=== PATIENT | female | born 1965 | race African-American/Black ===

== ENCOUNTER 2020-03-12 11:14 | Emergency (ER) | payer MEDICAID, SELFPAY ==
[2020-03-12 11:21] VITALS: BP 121/78; PULSE 95; RESP 16; TEMP 37.4; O2SAT 100
--- NOTE | 2020-03-12 11:53 | ED.GENADULT ---
HPI - General Adult General Chief complaint: General Medical Stated complaint: covid symptoms Time Seen by Provider: 03/12/20 11:23 Source: patient Mode of arrival: ambulatory Limitations: language barrier History of Present Illness HPI narrative: 54 y/o female presenting with persistent headache, myalgias, dry cough, sore throat and runny nose for the last 5 days. She had a negative COVID test on 03/08 and was forced to continue to go to work even though she was not feeling well. She works at [employer] where there have been several employees who have tested positive who she has been in close contact with. She is taking over the counter cold medications with some relief. She denies difficulty breathing or chest pain. She presents with her niece who has similar complaints. Related Data Allergies Allergy/AdvReac Type Severity Reaction Status Date / Time No Known Allergies Allergy Verified 03/12/20 11:27 Review of Systems Review of Systems: Constitutional: No Fever, + Chills ENT/Mouth: + sore throat, + Rhinorrhea, No Swallowing Difficulty Eyes: No Eye Pain, No Swelling, No Redness Cardiovascular: No Chest Pain, No SOB Respiratory: + Cough, No Sputum, No Wheezing, + dyspnea Gastrointestinal: No Nausea, No Vomiting, No Diarrhea, No abdominal Pain Genitourinary: No Dysuria Musculoskeletal: No joint pain, + Myalgias Skin: No Skin Lesions, No rash Neuro: + (generalized) Weakness, No Numbness, No Dizziness, + Headache PMFSH Social History Social History Alcohol intake: never Smoked in Last 30 Days: No Use of substances other than those prescribed or required for medical reasons: No Advance Directives: No Advance Directives Information Provided: No Physical Exam Vital Signs: Vital Signs: Last Vital Signs Temp 99.3 F 03/12/20 11:21 Pulse 95 03/12/20 11:21 Resp 16 03/12/20 11:21 BP 121/78 03/12/20 11:21 Pulse Ox 100 03/12/20 11:21 Body Mass Index 2.5 Appearance: Alert. Oriented X3. No acute distress. Appears ill. ENT: Pharyngeal erythema, generalized without tonsillar swelling or exudate. Neck: Normal inspection. Neck supple. CVS: Normal heart rate and rhythm. Pulses normal. Respiratory: No respiratory distress. Breath sounds normal. Skin: Skin warm and dry. Normal skin color. Normal skin turgor. No rashes. Neuro: Oriented X 3. Non-focal. Course Course Course Narrative: 54 y/o female presenting with 5 days of COVID symptoms after exposure at work. Will get resp panel given she is not up to date on her flu vaccine. Vitals are stable and her lungs are clear. Patient and her niece were counseled on the importance of staying out of public while feeling ill. Warning signs discussed when to return to the hospital. Stable for discharge. Critical Care Time Critical Care Time Critical Care Time: No Discharge Plan Discharge Clinical Impression: Acute viral disease Patient Disposition: Home, Self-Care Instructions: Viral Syndrome (ED), COVID-19 (Coronavirus Disease 2019) (ED) Additional Instructions: You were tested for COVID-19, Influenza and RSV today. We will call you with the results this afternoon. Do not go out in public while you are feeling ill, if your COVID-19 is positive you cannot go out in public for 10-14 days. Continue to wear your mask and wash your hands frequently. Continue to take over the counter cold and flu medications as needed for your symptoms. Take Tylenol and/or Motrin as needed for fever and body aches. If you develop difficultly breathing, shortness of breath or chest pain call 911 or come back to the hospital for further evaluation. Follow up with your doctor this week. Stand Alone Forms: Work/School Release Discharge Date/Time: 03/12/20 12:13 Print Language: Kiswahili
[2020-03-12 12:47] LABS: Influenza A PCR NEGATIVE (Negative); Influenza B PCR NEGATIVE (Negative); Resp Syncy Virus RNA Qual PCR NEGATIVE (Negative); SARS COV2 PCR INHOUSE POSITIVE (Negative)
== END 2020-03-12 12:13 | disposition home or self-care (01) ==
PROVIDERS: Physician Assistant; Emergency Provider Internal Medicine; PCP Internal Medicine
DX: B34.9 Viral infection, unspecified (principal); R05 Cough; R51.9 Headache, unspecified; R09.89 Other specified symptoms and signs involving the circulatory and respiratory systems; Z20.828 Contact with and (suspected) exposure to other viral communicable diseases
CPT/HCPCS: 0241U; 99283

== ENCOUNTER 2020-05-12 12:44 | Outpatient (REF) | payer MEDICAID, SELFPAY ==
--- NOTE | 2020-05-12 12:53 | XR_ITS ---
EXAMINATION: RIGHT HIP AND KNEE X-RAY CLINICAL INFORMATION: Pain COMPARISON: Right knee x-ray August 2019 TECHNIQUE: 2 views of the right hip and 4 views of the right knee FINDINGS: Right hip: Bone alignment is normal. No fracture or dislocation is seen. The joint space is normal. Soft tissues are normal. Right knee: Bone alignment is normal. No fracture or dislocation is seen. The femoral tibial joints are normal. There is mild arthritis at the patellofemoral joint with small osteophytes. There is no joint effusion. XR/XR hip RT min 2V IMPRESSION: Mild arthritis at the patellofemoral joint. Normal right hip
--- NOTE | 2020-05-12 12:53 | XR_ITS ---
EXAMINATION: RIGHT HIP AND KNEE X-RAY CLINICAL INFORMATION: Pain COMPARISON: Right knee x-ray August 2019 TECHNIQUE: 2 views of the right hip and 4 views of the right knee FINDINGS: Right hip: Bone alignment is normal. No fracture or dislocation is seen. The joint space is normal. Soft tissues are normal. Right knee: Bone alignment is normal. No fracture or dislocation is seen. The femoral tibial joints are normal. There is mild arthritis at the patellofemoral joint with small osteophytes. There is no joint effusion. XR/XR knee RT 4V IMPRESSION: Mild arthritis at the patellofemoral joint. Normal right hip
== END 2020-05-12 12:45 | disposition home or self-care (01) ==
LOC: HO.XRAY 12:44
PROVIDERS: PCP Internal Medicine; Visit Provider Internal Medicine
DX: M25.561 Pain in right knee (principal); M25.551 Pain in right hip
CPT/HCPCS: 73502; 73564

== ENCOUNTER 2021-01-01 12:32 | Outpatient (REF) | payer MEDICAID, SELFPAY | END 2021-01-01 12:33 | disposition home or self-care (01) | LOC: HO.LAB 12:32 | PROVIDERS: PCP Internal Medicine; Visit Provider Internal Medicine | DX: Z20.822 Contact with and (suspected) exposure to COVID-19 (principal) | CPT/HCPCS: C9803; U0003; U0005 ==

== ENCOUNTER 2021-01-06 14:35 | Emergency (ER) | payer MEDICAID, SELFPAY ==
--- NOTE | ~2021-01-06 | CT_ITS ---
EXAMINATION: CT ABDOMEN AND PELVIS WITHOUT CONTRAST CLINICAL INFORMATION: Left lower abdominal pain?etiology . COMPARISON: No pertinent prior studies are available for comparison. TECHNIQUE: Multidetector volumetric imaging was performed from the superior aspect of the liver through the pubic symphysis without contrast per renal stone protocol. Sagittal and coronal reformatted images were obtained on the technologist workstation. This CT examination was performed using dose optimization techniques as appropriate, variously including the following: *Automated exposure control *Adjustment of mA and/or kV according to patient size (this includes techniques or standardized protocols for targeted exams where dose is matched to indication/reason for exam; i.e. extremities or head) *Use of iterative reconstruction technique DLP: 495 mGy-cm. FINDINGS: LUNG BASES: The visualized lung bases are unremarkable. LIVER, GALLBLADDER, BILIARY TREE: The non-contrast liver is normal in size, shape, and attenuation. No focal hepatic lesion or biliary ductal dilatation is present. The gallbladder is unremarkable with no evidence of radiopaque gallstones, gallbladder wall thickening, or obvious pericholecystic inflammatory changes. PANCREAS: Unremarkable. SPLEEN: Unremarkable. ADRENAL GLANDS: Unremarkable. KIDNEYS AND URETERS: There is a mixed attenuation 2 cm structure along the posterior midpole of the left kidney. This could represent hemorrhagic cyst but is difficult to define further on this noncontrast CT scan. Correlation with ultrasound or contrast enhanced study may be helpful to define the appearance further. No obvious intrarenal calculi. No hydronephrosis or perinephric stranding. No obstructive changes seen. Ureters are followed throughout their course up to the urinary bladder without distal ureteric calculi. BLADDER: Unremarkable. GASTROINTESTINAL TRACT: Few scattered colonic diverticula are seen but there is no colonic wall thickening or pericolonic inflammatory change to suggest diverticulitis. The appendix is difficult to separate from adjacent bowel. Small tubular structure does appear to represent the appendix and there is no surrounding inflammatory change in this region. Visualized small bowel is unremarkable. Stomach is decompressed but there may be diffuse wall thickening. Gastritis cannot be excluded with this appearance ABDOMINAL WALL: No significant hernia is appreciated. LYMPHOVASCULAR STRUCTURES: No lymphadenopathy. The aorta is unremarkable.. PELVIC VISCERA: Presumably surgically absent OSSEUS STRUCTURES: Unremarkable. CT/CT abdomen pelvis wo con IMPRESSION: I do not appreciate any definitive acute intra-abdominal process to explain the left lower abdominal pain. No obstructive changes to the kidneys or ureters. No evidence for diverticulitis. Although the stomach is decompressed but does appear to be diffuse gastric wall thickening. This appearance may be related to the degree of decompression although underlying gastritis could have this appearance and could be clinically correlated.
[2021-01-06 15:00] VITALS: BP 125/78; PULSE 72; RESP 18; TEMP 36.8; O2SAT 99; BMI 28.3
[2021-01-06 15:48] LABS: Appearance Urine CLEAR; Color Urine YELLOW; Glucose Urine UA NEG (NEG); Leukocyte Esterase Urine NEG (NEG); Nitrite Urine NEG (NEG); PH 5.5 (5.0-8.0); Specific Gravity - Urine >= 1.030 (1.005-1.025); Urine Blood NEG (NEG); Urine Ketones NEG (NEG); Urine Protein NEG (NEG-TRACE)
--- NOTE | 2021-01-06 17:51 | ED_ITS ---
HPI - Abdominal Pain General Chief Complaint: Abdominal Pain Stated Complaint: lt side abd & back pain Time Seen by Provider: 01/06/21 17:51 Source: patient Mode of arrival: ambulatory Limitations: language barrier History of Present Illness HPI narrative: Patient no significant past medical history twin complaining of pain for last 3 days and left lower abdomen and left back. With nausea no vomiting no diarrhea no urinary symptoms no fever or chills no history of ovarian cyst never had similar pain in the past patient was lifting some boxes 3 days ago which cause of back pain abdominal pain came later on Related Data Previous Rx's Medication Instructions Recorded cyclobenzaprine 10 mg tablet 10 mg PO Q8H #20 tab 01/06/21 ibuprofen 600 mg tablet 600 mg PO Q6H PRN #20 tab 01/06/21 Allergies Allergy/AdvReac Type Severity Reaction Status Date / Time No Known Allergies Allergy Verified 01/06/21 14:58 Review of Systems Review of Systems Yes all other systems are reviewed and are negative Physical Exam Vital Signs: Vital Signs: Last Vital Signs Temp 98.2 F 01/06/21 15:00 Pulse 72 01/06/21 15:00 Resp 18 01/06/21 15:00 BP 125/78 01/06/21 15:00 Pulse Ox 99 01/06/21 15:00 Body Mass Index 28.3 Appearance: Alert. Oriented X3. No acute distress. Eyes: No pallor or icterus ENT: Pharynx normal. Oral Mucosa moist Neck: Normal inspection. Neck supple. CVS: Normal heart rate and rhythm. Pulses normal. Respiratory: No respiratory distress. Equal air entry bilateral, no wheezing/rales/rhonchi Abdomen: Soft deep tenderness left suprapubic area Bowel sounds are present, no mass palpable, no CVA tenderness diffuse tenderness left lower back no spinal tenderness Skin: Skin warm and dry. Normal skin color. Normal skin turgor. Extremities: No lower extremity edema. No calf tenderness Neuro: Oriented X 3. MDM - Abdominal Pain MDM Narrative Medical decision making narrative: Patient's CT scan negative workup is negative likely musculoskeletal pain causing the pain Lab Data Attestation: I reviewed the patient's lab results. Result diagrams: 01/06/21 18:48 01/06/21 18:47 Labs: Lab Results 01/06/21 01/06/21 01/06/21 Range/Units 15:38 18:47 18:48 WBC 9.0 (4.8-10.8) X10*3/uL RBC 4.49 (4.20-5.50) X10*6/uL Hgb 12.3 (12.0-16.0) g/dl Hct 37.9 (37-47) % MCV 84.4 (80-98) fL MCH 27.4 (27.0-33.0) pg MCHC 32.5 (31.0-35.0) g/dl RDW 13.3 (11.0-16.0) % Plt Count 245 (160-400) X10*3/uL MPV 10.1 (9.4-12.3) fL Immature Gran % (Auto) 0.3 (0.0-0.4) % Neut % (Auto) 58.8 (45-73) % Lymph % (Auto) 32.9 (20-40) % Morris % (Auto) 6.8 (2-11) % Eos % (Auto) 0.9 (0-4) % Baso % (Auto) 0.3 (0-2) % Lymph # (Auto) 3.0 (1.2-4.9) X10*3/uL Morris # (Auto) 0.6 (0.1-1.2) X10*3/uL Eos # (Auto) 0.1 (0.0-0.4) X10*3/uL Baso # (Auto) 0.0 (0.0-0.2) X10*3/uL Abs Immat Gran (auto) 0.03 (0.00-0.03) X10*3/uL Absolute Neuts (auto) 5.3 (2.0-8.3) X10*3/uL Absolute Nucleated RBC 0.000 (0.0-0.012) X10*3/uL Nucleated RBC % (auto) 0.0 (0.0-0.2) /100WBC Sodium 141 (135-145) mmol/L Potassium 4.1 (3.3-5.1) mmol/L Chloride 109 H (96-108) mmol/L Carbon Dioxide 21 L (22-29) mmol/L Anion Gap 15 (12-20) BUN 11 (9-16) mg/dL Creatinine 0.59 (0.5-1.4) mg/dL Estim Creat Clear Calc 90.1 Estimated GFR > 60 Random Glucose 84 (60-115) mg/dL Calcium 9.1 (8.4-10.2) mg/dL Urine Color YELLOW Urine Appearance CLEAR Urine pH 5.5 (5.0-8.0) Ur Specific [place] >= 1.030 H (1.005-1.025) Urine Protein NEG (NEG-TRACE) MG/DL Urine Glucose (UA) NEG (NEG) MG/DL Urine Ketones NEG (NEG) MG/DL Urine Blood NEG (NEG) Urine Nitrite NEG (NEG) Ur Leukocyte Esterase NEG (NEG) Discharge Plan Discharge Clinical Impression: Abdominal pain Qualifiers: Abdominal location: left lower quadrant Qualified Code(s): R10.32 - Left lower quadrant pain Patient Disposition: Home, Self-Care Instructions: Abdominal Pain (ED), Back Pain (ED) Additional Instructions: your pain is likely musculoskeletal ct scan of abdomen is negative for any acute pain meds and muscle relaxant a adv follow up with your pcp if not better dawkins dolor es probablemente musculoesquel?alejandro La tomograf?a computarizada del abdomen es negativa para cualquier analg?sicos y relajantes musculares a adv matias un seguimiento con dawkins pcp si no es mejor Prescriptions: New cyclobenzaprine 10 mg tablet 10 mg PO Q8H Qty: 20 RF: 0 ibuprofen 600 mg tablet 600 mg PO Q6H PRN (Reason: pain) Qty: 20 RF: 0 Interventions: ED Discharge Assessment Last Done: 01/06/21 20:22 Discharge Date/Time: 01/06/21 20:22 [facility] Past Medical History Medical History Carpal tunnel syndrome Surgical History H/O: hysterectomy Social History Social History Alcohol intake: never Advance Directives: No Advance Directives Information Provided: No Patient : No
[2021-01-06] MEDS: Ketorolac Tromethamine 15 MG/ML VIAL IVPUSH (18:50)
[2021-01-06 18:52] LABS: Basophils Percent Auto 0.3 % (0-2); Eosinophils Absolute Auto 0.1 X10*3/uL (0.0-0.4); Eosinophils Percent Auto 0.9 % (0-4); Hematocrit 37.9 % (37-47); Hemoglobin 12.3 g/dl (12.0-16.0); Imm Gran Abs Auto 0.03 X10*3/uL (0.00-0.03); Imm Gran Pct Auto 0.3 % (0.0-0.4); Lymphocytes Percent Auto 32.9 % (20-40); MANUAL DIFF FLAG NO; Mean Corpuscular HGB Conc 32.5 g/dl (31.0-35.0); Mean Corpuscular Hemoglobin 27.4 pg (27.0-33.0); Mean Corpuscular Volume 84.4 fL (80-98); Mean Platelet Volume 10.1 fL (9.4-12.3); Monocytes Absolute Auto 0.6 X10*3/uL (0.1-1.2); Monocytes Percent Auto 6.8 % (2-11); Neutrophils Absolute Auto 5.3 X10*3/uL (2.0-8.3); Neutrophils Percent Auto 58.8 % (45-73); Platelet Count 245 X10*3/uL (160-400); Red Blood Count 4.49 X10*6/uL (4.20-5.50); Red Cell Distribution Width 13.3 % (11.0-16.0)
[2021-01-06 19:18] LABS: Anion Gap 15 (12-20); Blood Urea Nitrogen 11 mg/dL (9-16); Calcium 9.1 mg/dL (8.4-10.2); Carbon Dioxide 21 mmol/L (22-29); Chloride 109 mmol/L (96-108); Creatinine Clr Calc Pharmacy 90.1; Estimated Glomerular Filt Rate > 60; Glucose Random 84 mg/dL (60-115); Potassium 4.1 mmol/L (3.3-5.1); Sodium 141 mmol/L (135-145)
[2021-01-06] MEDS: Cyclobenzaprine HCl 10 MG TABLET PO (20:11)
== END 2021-01-06 20:22 | disposition home or self-care (01) ==
PROVIDERS: Emergency Provider Internal Medicine; PCP Internal Medicine
DX: R10.32 Left lower quadrant pain (principal); Z79.899 Other long term (current) drug therapy
CPT/HCPCS: 36415; 74176; 80048; 81003; 85025; 96374; 99283; 99284; J1885

== ENCOUNTER 2021-01-08 15:19 | Outpatient (REF) | payer MEDICAID, SELFPAY ==
--- NOTE | ~2021-01-08 | XR_ITS ---
EXAMINATION: XR BILATERAL HAND CLINICAL INFORMATION: Pain. COMPARISON: None. TECHNIQUE: 3 views of each hand. FINDINGS: Right: Bone alignment is normal. No fracture or dislocation is seen. There is mild arthritis at the 1st FDC joint with joint space narrowing and small osteophyte. Soft tissues are unremarkable. Left: Bone alignment is normal. No fracture or dislocation is seen. There is a small cortical protuberance off the radial side of the proximal phalanx of the 5th finger probably representing a small bony exostosis. Soft tissues are normal. XR/XR hand LT min 3V IMPRESSION: Mild arthritis at the 1st FDC joints, right greater than left. Probable small bony exostosis of the proximal phalanx of the left 5th finger.
--- NOTE | ~2021-01-08 | XR_ITS ---
EXAMINATION: XR BILATERAL HAND CLINICAL INFORMATION: Pain. COMPARISON: None. TECHNIQUE: 3 views of each hand. FINDINGS: Right: Bone alignment is normal. No fracture or dislocation is seen. There is mild arthritis at the 1st FPC joint with joint space narrowing and small osteophyte. Soft tissues are unremarkable. Left: Bone alignment is normal. No fracture or dislocation is seen. There is a small cortical protuberance off the radial side of the proximal phalanx of the 5th finger probably representing a small bony exostosis. Soft tissues are normal. XR/XR hand RT min 3V IMPRESSION: Mild arthritis at the 1st FPC joints, right greater than left. Probable small bony exostosis of the proximal phalanx of the left 5th finger.
[2021-01-08 16:23] LABS: Rheumatoid Factor < 15.0 IU/mL (<15.0)
[2021-01-10 13:35] LABS: Immunoglobulin A 160 mg/dL (47-310); Immunoglobulin G 1141 mg/dL (600-1640); Immunoglobulin M 100 mg/dL (50-300)
[2021-01-10 21:46] LABS: Cyclic Citrullinated Peptide <16 UNITS
== END 2021-01-08 15:20 | disposition home or self-care (01) ==
LOC: HO.XRAY 15:19
PROVIDERS: Absent Provider Internal Medicine; PCP Internal Medicine; Visit Provider Internal Medicine
DX: M79.641 Pain in right hand (principal); M79.642 Pain in left hand
CPT/HCPCS: 36415; 73130; 82784; 86200; 86431

== ENCOUNTER 2021-03-05 12:58 | Outpatient (REF) | payer MEDICAID, SELFPAY ==
--- NOTE | ~2021-03-05 | MM_ITS ---
EXAMINATION: MM SCREENING DIGITAL BREAST TOMOSYNTHESIS, BILATERAL CLINICAL INFORMATION: Screening. Asymptomatic. The lifetime risk of breast cancer based on the Tyrer-Cuzick Model is 5%. COMPARISON: Outside hard copy [facility]28/2018[facility] [place] [place] [place] TECHNIQUE: Digital breast tomosynthesis is performed in both the craniocaudal and mediolateral oblique views along with computer-aided detection (CAD). Synthesized 2D images are generated from the tomosynthesis. FINDINGS: There are scattered areas of fibroglandular density (ACR BI-RADS breast composition Category b). Breast tissue composition borders on heterogeneously dense. Parenchymal pattern is similar to outside exam. Scattered calcifications in both breasts are similar to prior outside mammography. There is no interval significant mass or architectural abnormality or abnormal calcifications.There is stable nodularity 6:00 periareolar left breast and small stable nodularity anterior upper outer left breast. The axilla and skin contours are unremarkable. MM/MM tomosynthesis screening BI IMPRESSION: No significant changes from prior outside mammography 2018. ASSESSMENT: BI-RADS 2: Benign RECOMMENDATION: Routine annual mammography screening. This patient's information was entered into a reminder system with a target due date for their next mammogram.
== END 2021-03-05 12:59 | disposition home or self-care (01) ==
LOC: HO.MAMMO 12:58
PROVIDERS: PCP Internal Medicine; Visit Provider Internal Medicine
DX: Z12.31 Encounter for screening mammogram for malignant neoplasm of breast (principal)
CPT/HCPCS: 77063; 77067

== ENCOUNTER → 2021-03-27 12:33 | Outpatient (BNVA) | payer MEDICAID, SELFPAY | PROVIDERS: PCP Internal Medicine; Visit Provider Orthopaedic Surgery | DX: M65.321 Trigger finger, right index finger (principal); M65.341 Trigger finger, right ring finger | CPT/HCPCS: 99202 ==

== ENCOUNTER 2021-04-14 14:56 | Outpatient (REF) | payer MEDICAID, SELFPAY ==
[2021-04-14 16:14] LABS: COVID-19 Test Positive (Negative)
== END 2021-04-14 14:57 | disposition home or self-care (01) ==
LOC: HO.LAB 14:56
PROVIDERS: Visit Provider Internal Medicine
DX: Z20.822 Contact with and (suspected) exposure to COVID-19 (principal)
CPT/HCPCS: 36415; 87635; C9803

== ENCOUNTER 2021-05-10 11:09 | Day surgery (SDC) | payer MEDICAID, SELFPAY ==
[2021-05-10 11:30] VITALS: BMI 27.3
[2021-05-10 11:35] VITALS: BP 121/82; PULSE 64; RESP 18; TEMP 36.6; O2SAT 98
[2021-05-10 14:10] VITALS: BP 127/79; PULSE 76; RESP 16; TEMP 36.8; O2SAT 100
--- NOTE | 2021-05-10 14:25 | MHC.SHP ---
Pre-Procedural Eval Section A Date of Service: 05/10/21 The patient is an INPATIENT: No Changes since office visit: No Cold of Flu in the past 2 weeks, No New Medical Problems, No Changes in Medication and No Patient answered all questions The History & Physical has been completed within 30 days and I have reviewed it.: Yes Section B Chief Complaint: trigger finger index and ring finger Allergies: Allergies Allergy/AdvReac Type Severity Reaction Status Date / Time No Known Allergies Allergy Verified 01/06/21 14:58 Plan I have reviewed the history and physical and performed a pertinent physical examination on my patient. No changes have occurred unless specified.
--- NOTE | 2021-05-10 14:25 | W.PM.OPN ---
Operative Note Operative Note Date of Service: 05/10/21 Narrative: Operative Note Preop diagnosis: 1. right index finger Trigger finger 2. Right ring finger trigger finger Postop diagnosis: 1. right index finger Trigger finger 2. Right ring finger trigger finger 3. Right middle finger trigger finger Procedure: 1. right index finger A1 alexi release 2. Right ring finger A1 alexi release 3. Right middle finger A1 alexi release Surgeon: Swati Corcoran MD Anesthesia: local block using 1% lidocaine with epinephrine Findings: No locking or catching in right index finger or right ring finger after A1 alexi releases. however, her right middle finger was visibly locking. No locking or catching of right middle finger after A1 alexi release. EBL: Less than 5 mL Tourniquet time: None Specimens: None Complications: None Disposition: Brought to recovery room in stable condition Plan: Follow-up for 10-14 days for wound check and suture removal Indications: The patient is [age] years old, with a right index finger and right ring finger trigger fingers that have been unresponsive to nonoperative management. The risks and benefits of operative treatment including but not limited to risk of damage to blood vessels, nerves, tendons, infection, persistent pain, persistent symptoms, recurrence or possible need for additional surgery were discussed with the patient and the patient wishes to proceed with surgery. Procedure: Once consent was obtained a local block was performed in the preop area using a combination of 1% lidocaine with epinephrine. The patient was then brought back to the operating suite and placed on the operative table in supine position. A tourniquet was applied to the proximal aspect of the right upper extremity and the limb was prepped and draped in a standard surgical fashion. Once assured that we had a good block, a 1.5 cm oblique incision was made centered over the A1 alexi of the right index finger . The incision was made through the skin to the subcutaneous tissues using a #15 blade. Careful dissection was made down to the level of the A1 alexi using tenotomy scissors, with care being taken to protect the nearby neurovascular structures. A longitudinal incision was made in the A1 alexi 1st using a #15 blade, then using tenotomy scissors under direct visualization. The A1 alexi was noted to be thickened. Following our A1 alexi release, we no longer saw any locking or catching of the digit with flexion and extension. Once assured that we had a good block, a 1.5 cm oblique incision was made centered over the A1 alexi of the right ring finger . The incision was made through the skin to the subcutaneous tissues using a #15 blade. Careful dissection was made down to the level of the A1 alexi using tenotomy scissors, with care being taken to protect the nearby neurovascular structures. A longitudinal incision was made in the A1 alexi 1st using a #15 blade, then using tenotomy scissors under direct visualization. The A1 alexi was noted to be thickened. Following our A1 alexi release, we no longer saw any locking or catching of the digit with flexion and extension. however, while we no longer saw locking and catching of the right index and ring fingers we did see visible locking and catching of the right middle finger which is new. We discussed this with the patient and she wanted to have us perform the right middle finger A1 alexi release today while in the OR. We therefore brought in and hvac service technician and again reviewed the risks and benefits of surgery and she wished for us to add the right middle finger A1 alexi release to the permission slip. We did this while in the operating room and I initialed it the patient initial did and the hvac service technician and initialed it. Once assured that we had a good block, a 1.5 cm oblique incision was made centered over the A1 alexi of the Right middle finger . The incision was made through the skin to the subcutaneous tissues using a #15 blade. Careful dissection was made down to the level of the A1 alexi using tenotomy scissors, with care being taken to protect the nearby neurovascular structures. A longitudinal incision was made in the A1 alexi 1st using a #15 blade, then using tenotomy scissors under direct visualization. The A1 alexi was noted to be thickened. Following our A1 alexi release, we no longer saw any locking or catching of the digit with flexion and extension. Once satisfied with our A1 alexi release the wounds were copiously irrigated with normal saline and hemostasis was obtained with a brief period of local pressure. The skin edges were reapproximated with some 5.0 nylon suture material and a sterile dressing was applied. The patient appears to have tolerated the procedure well and with no complications. All digits were well vascularized at the conclusion of the case.
== END 2021-05-10 14:31 | disposition home or self-care (01) ==
PROVIDERS: PCP Internal Medicine; Visit Provider Orthopaedic Surgery
PROC: (CPT 26055; principal; 2021-05-10 12:00)
DX: M65.321 Trigger finger, right index finger (principal); M65.341 Trigger finger, right ring finger; M65.331 Trigger finger, right middle finger
CPT/HCPCS: 26055 ×3

== ENCOUNTER → 2021-05-22 12:25 | Outpatient (BNVA) | payer MEDICAID, SELFPAY | PROVIDERS: PCP Internal Medicine; Visit Provider Orthopaedic Surgery | DX: Z47.89 Encounter for other orthopedic aftercare (principal) | CPT/HCPCS: 99212 ==

== ENCOUNTER 2021-06-13 12:06 | Outpatient (REF) | payer MEDICAID, SELFPAY | END 2021-06-13 12:07 | disposition home or self-care (01) | LOC: HO.XRAY 12:06 | PROVIDERS: PCP Internal Medicine; Visit Provider Internal Medicine | DX: Z13.89 Encounter for screening for other disorder (principal) ==

== ENCOUNTER 2021-07-20 15:48 | Outpatient (REF) | payer MEDICAID, SELFPAY ==
--- NOTE | ~2021-07-20 | XR_ITS ---
EXAMINATION: XR HAND, LEFT CLINICAL INFORMATION: Left hand pain. COMPARISON: Left hand radiographs dated 01/08/2021. TECHNIQUE: PA, lateral, and oblique views of the left hand. FINDINGS: Joint space narrowing with marginal osteophytes and mild bony remodeling redemonstrated at the 1st carpometacarpal joint. More mild joint space narrowing with tiny marginal osteophytes at the triscaphe joint. No acute fracture or dislocation. Redemonstration of a small exostosis at the distal aspect of the 5th proximal phalanx. No new abnormal soft tissue calcification. XR/XR hand LT min 3V IMPRESSION: Moderate 1st carpometacarpal and more mild triscaphe joint osteoarthritis, similar when compared to the prior radiograph.
--- NOTE | ~2021-07-20 | XR_ITS ---
EXAMINATION: XR HIP, LEFT CLINICAL INFORMATION: Left hip pain. COMPARISON: Most recent CT abdomen/pelvis dated 01/06/2021. TECHNIQUE: 2 views of the left hip. FINDINGS: No acute fracture or dislocation. No significant joint space narrowing or marginal osteophytes. No osseous erosion. Multiple pelvic phleboliths are redemonstrated. XR/XR hip LT min 2V IMPRESSION: No acute osseous abnormality.
== END 2021-07-20 15:49 | disposition home or self-care (01) ==
LOC: HO.XRAY 15:48
PROVIDERS: Absent Provider Internal Medicine; PCP Internal Medicine; Visit Provider Internal Medicine
DX: M25.552 Pain in left hip (principal); M79.642 Pain in left hand
CPT/HCPCS: 73130; 73502

== ENCOUNTER 2021-08-06 14:00 | Outpatient (RCR) | payer MEDICAID, SELFPAY ==
--- NOTE | 2021-05-28 12:37 | MHC.OT.OEV ---
[address] [phone] F: [phone] Occupational Therapy Evaluation Diagnosis: TRIGGER FINGER RELEASE Date of Surgery: 05/10/21 Attending Provider: Swati Bond Prescribed Treatment: EVAL AND TREAT History of Current Condition: REPORTS ABOUT A ONE YEAR HISTORY OF RIGHT TRIGGER FINGER. UNDERWENT RELEASE OF R RING, MIDDLE AND INDEX FINGER WITH DR BOND ON 05/10/21. ALSO C/O LOCKING/ TRIGGERING OF LEFT INDEX FINGER. 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 HOBBIES: REPORTS COOKING AND CLEANING HOME Living Situation, Family and/or Social Support: LIVES ALONE Current Level of Function and Occupation Self Care, Employment, Leisure: CURRENTLY OUT OF WORK. ANTICIPATES RETURN TO WORK ON 06/11/21. REPORTS SEVERE DIFFICULTIES WITH HOUSEHOLD TASKS, OPENING TIGHT JAR, CARRYING ITEMS WITH RIGHT HAND. Sleep: REPORTS MODERATE DIFFICULTIES WITH SLEEP Pain Assessment Pain Score: 7-9/10 Pain Scale Used: Numeric (0 - 10) Pain Location and Description: R VOLAR HAND 7/10 AT REST, 9/10 WITH USE Aggravating Factors: GENERAL USE Alleviating Factors: TAKING TYLENOL WITH LITTLE RELIEF, HAS NOT TRIED HEAT/ICE OR NOTICED A DIFFERENCE AFTER SHOWERING/WARM WATER SOAKS Skin and Soft Tissue Assessment Skin and Soft Tissue: Swelling Scar Tissue Comments: HEALING SURGICAL INCISIONS TO D2-D4 OF VOLAR HAND, MILD EDEMA IN DIGITS, STERI STRIPS NO LONGER PRESENT Edema Assessment Upper Extremity: Right Impaired Lower Extremity: Comments: MILD EDEMA NOTED THROUGH DIGITS OF R HAND Dexterity Assessment Dexterity: WFL Comments: 9 HOLE PEG TEST: RIGHT 27 SECONDS, LEFT 29 SECONDS Special Tests Comments: AROM(PROM) Strength Wrist Flexion: R 60, L 70 Extension: R 45, L 60 Ulnar Deviation: Radial Deviation: Comments: Flexion: Extension: Ulnar Deviation: Radial Deviation: Comments: Digits Index MCP: PIP: DIP: Long MCP: PIP: DIP: Ring MCP: PIP: DIP: Small MCP: PIP: DIP: Comments: GROSSLY ABOUT 2CM TIP TO DPC OF D2-D4 Gross Grasp: R NT, L 40 Lateral Pinch: R NT, L 10 Two-Point Pinch: R NT, L 5 Three-Jaw Dylan: R NT, L 6 Comments: Patient Education Primary Language: Development Scientist Required: Yes Current Knowledge: Minimal, needs reinforcement Teaching Method: Demonstration Handouts Phone Call Verbal Education Needs Identified on Evaluation: ADL's Disease Information Equipment Use Exercise Pain Safety How did patient/family demonstrate learning? Patient demonstrates Patient verbalizes Barriers to Learning: None Readiness for Learning: No interest Who was educated? Patient Comments: KAIAWHINA KOHANGA REO CELINEMARYSONG, #[id number] Plan of Care Assessment: JINNY IS TWO WEEKS POST OP TRIGGER FINGER RELEASE OF RIGHT INDEX, MIDDLE AND RING FINGER. SHE REPORTS 7/10 PAIN AT REST AND 9/10 WITH USE. SHE IS ABOUT 2 CM TIP TO DPC AND ABLE TO FULLY EXTEND DIGITS AT TIME OF EVAL. SHE HAS BEEN WORKING ON A/PROM OF DIGITS SINCE HER LAST APPOINTMENT WITH DR BOND. ONGOING SKILLED OT IS WARRANTED TO ADDRESS ROM, STRENGTH, EDEMA MANAGEMENT, WORK CONDITIONING TASKS, SCAR MOBILIZATION AND Pt EDUCATION. 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 Goals: IND SELF MANAGEMENT OF LEFT RF TRIGGER FINGER R GROSS GRASP >30 POUNDS TOLERATE LIFTING >8 POUNDS WITH <4/10 PAIN REPORT MOSTLY PAINFREE AROM AND LIGHT ADLs TIP TO DPC OF R HAND Frequency and Duration: The patient will be seen 2X/WEEK FOR 4 WEEKS Treatment Plan: Therapeutic Exercise Therapeutic Activity Home Exercise Program Splinting Neuro Re-ed Patient Education Desensitization/Sensory Re-ed Edema Control ADL Training Ultrasound NMES Iontophoresis Paraffin Fluidotherapy MHP Cold Packs Joint Mobilization Soft Tissue Mobilization Kinesiotaping Other (see comments) Electronically Signed By: DEYIS JENKINS OTR/L Reviewed/agree with student documentation: N/A Therapist: Please sign and return to therapist, Thank you for your referral.
--- NOTE | 2021-08-06 14:57 | MHC.OT.DC ---
[address] [phone] F: [phone] Occupational Therapy Discharge Note Provider: Swati Corcoran Diagnosis: TRIGGER FINGER RELEASE Date of Surgery: 05/10/21 Date of Evaluation: 05/28/21 Date of Discharge: 08/06/21 Treatments to Date: 11 Cancellations to Date: 2 No Shows to Date: 3 Discharge Status: Achieved Goals Improved Function Recommend MD Follow-up Discharge Summary: MS AUSTIN REESE HAS PROGRESSED WELL WITH HER OT GOALS. FOCUS WAS ON SCAR MOBILIZATION, TENDON GLIDING, AND ELASTOMERE WAS PROVIDED FOR NIGHT USE TO VOLAR PALM. AT TIME OF DISCHARGE, SHE C/O PIPj PAIN IN THE INDEX FINGER. EDUCATION WAS PROVIDED ON JOINT PROTECTION, USE OF HEAT MODALITIES AND ARTHRITIS MANAGEMENT. SHE MAY BENEFIT FROM A FOLLOW-UP WITH HER MD. D/C OT SERVICES WITH A TRANSITION TO A HOME BASED PROGRAM. Electronically Signed By: KRISTEN NUÑEZ/L Reviewed/agree with student documentation: N/A Therapist: Please Sign and return to therapist, thank you for your referral.
== END 2021-08-06 14:55 | disposition home or self-care (01) ==
LOC: HO.OT 14:00
PROVIDERS: PCP Internal Medicine; Visit Provider Orthopaedic Surgery
DX: M65.341 Trigger finger, right ring finger (principal); M65.321 Trigger finger, right index finger
CPT/HCPCS: 97035; 97110; 97112; 97140; 97166; 97530

== ENCOUNTER → 2021-11-19 14:01 | Outpatient (BNVA) | payer MEDICAID, SELFPAY | PROVIDERS: PCP Internal Medicine; Visit Provider Internal Medicine Rheumatology | DX: M79.671 Pain in right foot (principal); M79.672 Pain in left foot; M19.041 Primary osteoarthritis, right hand; M19.042 Primary osteoarthritis, left hand; M17.0 Bilateral primary osteoarthritis of knee | CPT/HCPCS: 99202 ==

== ENCOUNTER 2022-01-18 09:11 | Outpatient (REF) | payer MEDICAID, SELFPAY ==
[2022-01-18 09:36] LABS: MANUAL DIFF FLAG NO
[2022-01-18 09:49] LABS: Basophils Percent Auto 0.5 % (0-2); Eosinophils Absolute Auto 0.1 X10*3/uL (0.0-0.4); Hematocrit 36.4 % (37.0-47.0); Hemoglobin 11.7 g/dl (12.0-16.0); Imm Gran Abs Auto 0.01 X10*3/uL (0.00-0.03); Imm Gran Pct Auto 0.1 % (0.0-0.4); Lymphocytes Absolute Auto 2.6 X10*3/uL (1.2-4.9); Lymphocytes Percent Auto 34.8 % (20-40); Mean Corpuscular HGB Conc 32.1 g/dl (31.0-35.0); Mean Corpuscular Hemoglobin 27.2 pg (27.0-33.0); Mean Corpuscular Volume 84.7 fL (80.0-98.0); Mean Platelet Volume 10.3 fL (9.4-12.3); Monocytes Absolute Auto 0.6 X10*3/uL (0.1-1.2); Monocytes Percent Auto 7.6 % (2-11); Neutrophils Absolute Auto 4.1 x10*3/uL (2.0-8.3); Platelet Count 264 X10*3/uL (160-400); Red Cell Distribution Width 13.5 % (11.0-16.0); White Blood Count 7.3 X10*3/uL (4.8-10.8)
[2022-01-18 09:57] LABS: Alanine Aminotransferase 10 U/L (0-31); Alkaline Phosphatase 95 U/L (39-117); Anion Gap 13 (12-20); Aspartate Amino Transferase 17 U/L (5-31); Bilirubin Total 0.2 mg/dL (0.0-1.0); Blood Urea Nitrogen 15 mg/dL (9-16); Calcium 8.8 mg/dL (8.4-10.2); Carbon Dioxide 25 mmol/L (22-29); Chloride 109 mmol/L (96-108); Estimated Glomerular Filt Rate > 60; Glucose Random 102 mg/dL (60-115); Potassium 4.5 mmol/L (3.3-5.1); Sodium 142 mmol/L (135-145); Total Protein 6.7 g/dL (6.5-8.0)
[2022-01-18 10:18] LABS: TSH reflex Free T4 0.53 uIU/mL (0.32-4.0)
== END 2022-01-18 09:12 | disposition home or self-care (01) ==
LOC: HO.LAB 09:11
PROVIDERS: PCP Internal Medicine; Visit Provider Nurse Practitioner
DX: K59.04 Chronic idiopathic constipation (principal)
CPT/HCPCS: 36415; 80053; 84443; 85025; 99202

== ENCOUNTER → 2022-03-27 14:40 | Outpatient (BNVA) | payer MEDICAID, SELFPAY | PROVIDERS: PCP Internal Medicine; Visit Provider Nurse Practitioner | DX: K59.04 Chronic idiopathic constipation (principal) | CPT/HCPCS: 99212 ==

== ENCOUNTER 2022-06-05 11:00 | Outpatient (RCR) | payer MEDICAID, SELFPAY ==
--- NOTE | 2022-05-13 13:49 | MHC.OT.EP ---
[address] [phone] Occupational Therapy Plan of Care Date of Evaluation: 05/13/22 Diagnosis: Hand Pain Pain Location: Left posterior shoulder, left thumb-wrist Pain Score: 10 Aggravating Factors: Grasping, lifting, carrying Alleviating Factors: Diclofenac for pain, mostly morning Assessment: 57 yo right hand dominant female presents w/ worsening left hand and arm pain over the past few months. She has difficulty w/ grasping objects, carrying heavy boxes and items and states she drops things in her left hand. On assessment, she has some edema in left radial wrist, (-) Finklesteins but has more pain in basal jt w/ CMC grind test. X-ray from last year shows moderate CMC arthritis. She also has tenderness to palpate over upper trap and periscap muscles, with slightly decreased end range shoulder movement. Gross grasp in 40lb right and 20lb left and some pain in thumb and wrist. Overall, she will benefit from cont'd therapy to address upperbody muscle tightness and potential trigger points, as well as left thumb/wrist pain consistent w/ CMC arthritis. Frequency and Duration: The patient will be seen 2x/wk for 4 weeks Short Term Goals: Ind w/ HEP Ind w/ use of heat and cold modalities for comfort Ind w/ thumb CMC orthosis for protection and comfort Good follow through w/ joint protection technqiues Half-Way Goals: Left gross grasp >35lb Pt to demo ease w/ bimanual lift and carry 25lb boxes Pt to report <4/10 pain w/ everyday use of left hand/arm Ind w/ progression of strengthening program w/ therabands Treatment Plan: Therapeutic Exercise Therapeutic Activity Home Exercise Program Splinting Patient Education Edema Control ADL Training Ultrasound Paraffin Fluidotherapy MHP Cold Packs Joint Mobilization Soft Tissue Mobilization Kinesiotaping CMC orthosis vs thumb spica forearm orthosis Electronically Signed By: KRISTEN Callaway/Sharif CHT Please Sign and return to therapist. Thank you once again for your referral.
--- NOTE | 2022-06-19 11:16 | MHC.OT.DC ---
[address] [phone] F: [phone] Occupational Therapy Discharge Note Patient Name: Christi Yo Provider: Dr Dima Pepper Diagnosis: Hand Pain Date of Evaluation: 05/13/22 Date of Discharge: 06/19/22 Treatments to Date: 4 Cancellations to Date: 3 No Shows to Date: 3 Discharge Summary: Christi was referred to OT w/ left hand and arm pain, assessed and initiated therapy for management of CMC arthritis and fit w/ custom orthosis. She had difficulty w/ orthosis fit, but did not bring in for readjustments on follow up visits. Over a brief course of therapy, she had no change in pain or edema in left hand/web space, but at this time has missed six appointments and we will be discharging from services at this time. Electronically Signed By: Zaida Sosa OTR/L CHT Please Sign and return to therapist, thank you for your referral.
== END 2022-06-19 11:16 | disposition home or self-care (01) ==
LOC: HO.OT 11:00
PROVIDERS: PCP Internal Medicine; Visit Provider Internal Medicine
DX: M79.641 Pain in right hand (principal); M79.642 Pain in left hand
CPT/HCPCS: 29130; 97110; 97140; 97165; 97760

== ENCOUNTER 2022-08-04 06:43 | Emergency (ER) | payer MEDICAID, SELFPAY ==
--- NOTE | ~2022-08-04 | XR_ITS ---
EXAMINATION: XR WRIST, RIGHT XR HAND, RIGHT CLINICAL INFORMATION: Right hand pain. Evaluate for fracture COMPARISON: X-ray of the right hand December 2020 TECHNIQUE: 3 views of the right hand including wrist and scaphoid view of the wrist FINDINGS: Right hand and wrist: No fracture. Mild osteoarthritis involving interphalangeal joints manifested by small subchondral cysts involving the IP joint of the thumb and third and fourth DIP joints slightly more evident than on prior x-ray in 2020. XR/XR hand wrist RT IMPRESSION: 1. No fracture or acute abnormality. 2. Mild osteoarthritis.
[2022-08-04 06:46] VITALS: BP 143/83; PULSE 80; RESP 18; TEMP 36.3; O2SAT 99; BMI 31.2
--- NOTE | 2022-08-04 07:54 | PC.NURSE ---
pt a+o x4, vss. she c/o 10/ pain that radiates from below her elbow down to her r hand. 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 she states that on Friday she lifted a box and had to drop it because of the pain. her r hand is swollen and tender to touch. denies n/v/d, no other complaints.
--- NOTE | 2022-08-04 07:55 | ED_ITS ---
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 She states she does lift heavy boxes. She states that on Friday (3 days prior to evaluation) she was lifting boxes and had any injury to her right wrist. She states she continue to work. Later that night she woke up and she had increased pain in her wrist. She states the pain is got progressively worse and now her wrist and hand are swollen. She states that with minimal movement she has severe pain. The pain is a sharp, constant pain and does radiate up her forearm to the lateral aspect of her elbow. She has no difficulty moving her elbow. She denies any other injury. She denies systemic symptoms such as fever, chills, fatigue. Related Data Home Medications Medication Instructions Recorded Confirmed cyclobenzaprine 10 mg tablet 10 mg PO Q8H PRN 03/27/22 fluticasone propionate 50 1 - 2 spray intranasal QAM 03/27/22 mcg/actuation nasal spray,suspension hydroxyzine HCl 25 mg tablet 25 mg PO TID PRN itch 03/27/22 ibuprofen 600 mg tablet 600 mg PO TID 03/27/22 Previous Rx's Medication Instructions Recorded linaclotide 72 mcg capsule 72 mcg PO QAM #30 caps 03/27/22 (Linzess) acetaminophen 500 mg tablet 500 mg PO Q6H PRN fever or pain 08/04/22 (Tylenol Extra Strength) #30 tabs prednisone 20 mg tablet 60 mg PO DAILY 5 days #15 tabs 08/04/22 Allergies Allergy/AdvReac Type Severity Reaction Status Date / Time No Known Allergies Allergy Verified 03/27/22 15:13 Review of Systems Review of Systems: Yes all other systems are reviewed and are negative [facility] Past Medical History [facility] Narrative: Social history: 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 She denies tobacco, alcohol and drug use. Medical History Carpal tunnel syndrome Surgical History H/O: hysterectomy History of hand surgery Family History Family History Mother Diabetes Heart disease Dementia HTN (hypertension) Father HTN (hypertension) Hyperlipemia Alzheimer disease Social History Social History Alcohol intake: never Patient Tobacco Use Status: Never used Tobacco Advance Directives: No Advance Directives Information Provided: Yes Current occupational status: employed Current occupation: rt handed/[employer] Physical Exam Vital Signs: Vital Signs: Last Vital Signs Temp 97.4 F 08/04/22 06:46 Pulse 69 08/04/22 08:30 Resp 16 08/04/22 08:30 BP 125/89 08/04/22 08:30 Pulse Ox 98 08/04/22 08:30 O2 Del Method Room Air 08/04/22 08:30 BMI result Body Mass Index 31.2 Vital signs were normal General: Awake, alert, female patient she does appear to be in distress secondary to her right hand and wrist pain, she is holding her wrist next body and minimal movement seems to cause increased pain Right upper extremity exam: The patient has swelling over her right hand and right wrist. The hand is diffusely tender and the wrist is also diffusely tender. With minimal passive and active of the wrist and hand she has increased pain. She has no pain with flexion extension of the wrist but with supination and pronation of the forearm she does have pain. There is no increased warmth or erythema. Extremities neurovascular intact Medications Administered Discontinued Medications Generic Name Dose Route Start Last Admin Trade Name Freq PRN Reason Stop Dose Admin Acetaminophen 975 mg 08/04/22 07:55 08/04/22 08:17 Acetaminophen 325 Mg Tablet PO 08/04/22 07:56 975 mg ONCE STA Administration Prednisone 60 mg 08/04/22 07:55 08/04/22 08:17 Prednisone 20 Mg Tablet PO 08/04/22 07:56 60 mg ONCE ONE Administration Medical Decision Making Medical Decision Making MDM Narrative: 57-year-old female who presents emergency department for evaluation of pain in her right hand wrist and forearm x3 days. Patient had initial injury at work while she was lifting boxes and the pain is got progressively worse. She now has swelling over her hand and wrist with significant pain with minimal passive and active movement. She has no tenderness with palpation of the elbow but does have pain in the forearm with supination and pronation. Her extremities neurovascular intact. I ordered an x-ray of the patient's hand and wrist. Patient was ordered to get prednisone 60 mg orally and Tylenol 975 mg orally. Patient was placed in a Velcro wrist splint as well. 0838: The patient's x-rays revealed no acute fracture. The patient was placed in a Velcro splint and discharged to home with printed instructions and prescriptions. Differential Diagnosis Differential diagnosis includes was not limited to wrist fracture, hand fracture, inflammatory arthritis of hand, inflammatory arthritis of wrist, repetitive motion injury Radiology Impression Discussion of test interpretation with radiology: I have reviewed the radiologist's reading. Radiologist Impression: /XR hand wrist RT IMPRESSION: 1. No fracture or acute abnormality. 2. Mild osteoarthritis. Dictated By:Shad Kelly MD Discharge Plan Discharge Clinical Impression: Hand pain, right, Acute pain of right wrist, Repetitive motion injury, Pain of right forearm Patient Disposition: Home, Self-Care Instructions: Wrist Injury (ED) Additional Instructions: The x-ray of your right wrist and hand revealed no broken bones which is reassuring. You have inflammation of your hand and wrist most likely due to a work related injury and due to repetitive motion of your hand wrist and forearm. Wear the wrist splint for 1 week. Apply ice for 10-15 minutes 4 to 6 times a day for the next 2-3 days to help reduce the pain and swelling Take prednisone 20 mg pills, 3 pills once a day for 5 days. While you are taking prednisone, do not take any NSAIDs (Motrin, Advil, ibuprofen, Aleve, naproxen). This is a strong anti-inflammatory pain medication. Take Tylenol (acetaminophen) 500 mg pills, 2 pills every 6 hours as needed for pain. Follow-up with your doctor or our Occupational Health or the occupational health clinic associated with your work in 3 days. Please return to the emergency department if your symptoms get worse or if you develop any symptoms that are concerning to you. Prescriptions: New prednisone 20 mg tablet 60 mg PO DAILY 5 Days Qty: 15 0RF acetaminophen [Tylenol Extra Strength] 500 mg tablet 500 mg PO Q6H PRN (Reason: fever or pain) Qty: 30 0RF No Action cyclobenzaprine 10 mg tablet 10 mg PO Q8H PRN hydroxyzine HCl 25 mg tablet 25 mg PO TID PRN (Reason: itch) ibuprofen 600 mg tablet 600 mg PO TID fluticasone propionate 50 mcg/actuation spray,suspension 1 - 2 spray intranasal QAM Linzess 72 mcg capsule 72 mcg PO QAM Qty: 30 3RF Referrals: [facility] [Provider Group] - 3 days (Right wrist, hand, forearm injury at work, repetitive motion injury) Stand Alone Forms: Work/School Release
[2022-08-04] MEDS: predniSONE 20 MG TABLET 60 MG PO (08:17)
[2022-08-04] MEDS: Acetaminophen 325 MG TABLET 975 MG PO (08:17)
[2022-08-04 08:30] VITALS: BP 125/89; PULSE 69; RESP 16; O2SAT 98
--- NOTE | 2022-08-04 08:43 | PC.NURSE ---
meds given as documented. splint applied as documented. vss.
--- NOTE | 2022-08-04 09:12 | PC.NURSE ---
pt cleared for discharge, discharge instructions reviewed with pt via video special agent. vss
== END 2022-08-04 09:13 | disposition home or self-care (01) ==
PROVIDERS: Emergency Provider Emergency Medicine Emergency Medical Services
DX: S59.911A Unspecified injury of right forearm, initial encounter (principal); M25.531 Pain in right wrist; X58.XXXA Exposure to other specified factors, initial encounter; Y93.9 Activity, unspecified; Y92.9 Unspecified place or not applicable; Y99.9 Unspecified external cause status; Z79.899 Other long term (current) drug therapy
CPT/HCPCS: 29125; 73110; 73130; 99284

== ENCOUNTER 2022-12-12 14:30 | Outpatient (REF) | payer MEDICAID, SELFPAY ==
--- NOTE | ~2022-12-12 | MM_ITS ---
EXAMINATION: MM SCREENING DIGITAL BREAST TOMOSYNTHESIS, BILATERAL CLINICAL INFORMATION: Screening. Asymptomatic. COMPARISON: Mammography: This study is compared with prior exams dating back to 2020. TECHNIQUE: Digital breast tomosynthesis is performed in both the craniocaudal and mediolateral oblique views along with computer-aided detection (CAD). Synthesized 2D images are generated from the tomosynthesis. FINDINGS: There are scattered areas of fibroglandular density (ACR BI-RADS breast composition Category b). There are no significant masses, abnormal calcifications, or other abnormalities. Few, unchanged, benign calcifications are present in each breast. MM/MM tomosynthesis screening BI IMPRESSION: No mammographic evidence of malignancy. ASSESSMENT: BI-RADS BI-RADS 2 - Benign Findings RECOMMENDATION: Routine annual mammography screening. 1 year F/U This examination should not preclude the clinical evaluation of a suspicious palpable abnormality. This patient's information was entered into a reminder system with a target due date for their next mammogram.
== END 2022-12-12 14:31 | disposition home or self-care (01) ==
LOC: HO.MAMMO 14:30
PROVIDERS: PCP Internal Medicine; Visit Provider Internal Medicine
DX: Z12.31 Encounter for screening mammogram for malignant neoplasm of breast (principal)
CPT/HCPCS: 77063; 77067

== ENCOUNTER → 2022-12-12 15:15 | Outpatient (BNV) | payer MEDICAID, SELFPAY | PROVIDERS: PCP Internal Medicine; Visit Provider Radiology Diagnostic Radiology | DX: Z12.31 Encounter for screening mammogram for malignant neoplasm of breast (principal) | CPT/HCPCS: 77063; 77067 ==

== ENCOUNTER 2023-05-30 09:37 | Outpatient (REF) | payer MEDICAID, SELFPAY ==
[2023-05-30 11:03] LABS: MANUAL DIFF FLAG NO
[2023-05-30 11:36] LABS: Estimated Average Glucose 108 mg/dL; Hemoglobin A1c % 5.4 % (<6.0)
[2023-05-30 11:49] LABS: ~HepC Num1 0.18 S/CO (0.00-0.79); ~Hepatitis C Antibody Nonreactive (Nonreactive)
[2023-05-30 12:05] LABS: Basophils Absolute Auto 0.1 X10*3/uL (0.0-0.2); Basophils Percent Auto 0.9 % (0-2); Eosinophils Absolute Auto 0.1 X10*3/uL (0.0-0.4); Eosinophils Percent Auto 2.1 % (0-4); Hematocrit 38.5 % (37.0-47.0); Hemoglobin 12.7 g/dl (12.0-16.0); Imm Gran Abs Auto 0.01 X10*3/uL (0.00-0.03); Imm Gran Pct Auto 0.2 % (0.0-0.4); Lymphocytes Absolute Auto 2.2 X10*3/uL (1.2-4.9); Lymphocytes Percent Auto 38.5 % (20-40); Mean Corpuscular Hemoglobin 27.4 pg (27.0-33.0); Mean Corpuscular Volume 83.2 fL (80.0-98.0); Mean Platelet Volume 12.1 fL (9.4-12.3); Monocytes Absolute Auto 0.4 X10*3/uL (0.1-1.2); Monocytes Percent Auto 6.7 % (2-11); Neutrophils Absolute Auto 2.9 x10*3/uL (2.0-8.3); Neutrophils Percent Auto 51.6 % (45-73); Platelet Count 192 X10*3/uL (160-400); Red Blood Count 4.63 X10*6/uL (4.20-5.50); Red Cell Distribution Width 13.8 % (11.0-16.0); White Blood Count 5.6 X10*3/uL (4.8-10.8)
[2023-05-30 12:14] LABS: Alanine Aminotransferase 13 U/L (0-31); Alkaline Phosphatase 100 U/L (39-117); Anion Gap 11 (12-20); Aspartate Amino Transferase 18 U/L (5-31); Bilirubin Total 0.7 mg/dL (0.0-1.0); Blood Urea Nitrogen 10 mg/dL (9-16); Calcium 9.1 mg/dL (8.4-10.2); Carbon Dioxide 25 mmol/L (22-29); Chloride 107 mmol/L (96-108); Cholesterol 184 mg/dL (<200); Estimated Glomerular Filt Rate > 60; Glucose Random 89 mg/dL (60-115); HDL Cholesterol 77 mg/dL (>40); LDL Cholesterol Calculated 97 mg/dL (<100); Potassium 4.2 mmol/L (3.3-5.1); Sodium 139 mmol/L (135-145); TSH reflex Free T4 0.48 uIU/mL (0.32-4.0); Total Protein 7.3 g/dL (6.5-8.0); Triglycerides 54 mg/dL (<150)
== END 2023-05-30 09:38 | disposition home or self-care (01) ==
LOC: HO.HHCL 09:37
PROVIDERS: Visit Provider Internal Medicine
DX: F41.9 Anxiety disorder, unspecified (principal)
CPT/HCPCS: 36415; 80053; 80061; 83036; 84443; 85025; 86803

== ENCOUNTER 2023-09-05 19:09 | Outpatient (REF) | payer MEDICAID, SELFPAY | END 2023-09-05 19:10 | disposition home or self-care (01) | LOC: HO.HHCLNP 19:09 | PROVIDERS: Visit Provider Internal Medicine | DX: R68.89 Other general symptoms and signs (principal) | CPT/HCPCS: 87070 ==

== ENCOUNTER 2023-10-20 10:41 | Outpatient (REF) | payer MEDICAID, SELFPAY ==
--- NOTE | ~2023-10-20 | XR_ITS ---
EXAMINATION: XR SHOULDER, LEFT CLINICAL INFORMATION: Left shoulder pain COMPARISON: None available. TECHNIQUE: AP external rotation, Grashey, scapular Y views of the left shoulder. FINDINGS: No acute fracture or subluxation is evident. There are small calcifications adjacent to the greater tuberosity, which could reflect either calcific tendinosis or perhaps small loose bodies. XR/XR shoulder LT min 2V IMPRESSION: 1. No acute fracture or subluxation. 2. Small calcifications adjacent to the greater tuberosity, either on the basis of calcific tendinosis or small bodies.
--- NOTE | ~2023-10-20 | XR_ITS ---
EXAMINATION: XR HUMERUS, LEFT CLINICAL INFORMATION: Left arm COMPARISON: None available. TECHNIQUE: AP and lateral views of the left humerus. FINDINGS: No fracture, subluxation or bone lesion is evident in the left humerus. There are calcifications adjacent to the left humeral head, either on the basis of calcific tendinosis or perhaps loose bodies. XR/XR humerus LT IMPRESSION: 1. No acute fracture or subluxation of the left humerus. 2. Calcifications adjacent to the humeral head, either loose bodies or calcific tendinosis.
== END 2023-10-20 10:42 | disposition home or self-care (01) ==
LOC: HO.HHCX 10:41
PROVIDERS: Visit Provider Internal Medicine
DX: M79.602 Pain in left arm (principal); M25.512 Pain in left shoulder
CPT/HCPCS: 73030; 73060

== ENCOUNTER 2023-12-22 14:03 | Outpatient (REF) | payer OTHER, SELFPAY ==
--- NOTE | ~2023-12-22 | MM_ITS ---
EXAMINATION: MM SCREENING DIGITAL BREAST TOMOSYNTHESIS, BILATERAL CLINICAL INFORMATION: Screening. Asymptomatic. COMPARISON: Mammography: Comparison is made with available priors TECHNIQUE: Digital breast mammography with tomosynthesis is performed in both the craniocaudal and mediolateral oblique views along with computer-aided detection (CAD). FINDINGS: There are scattered areas of fibroglandular density (ACR BI-RADS breast composition Category b). Bilateral circumscribed oval masses which wax and wane consistent with benign fibrocystic changes. There are no significant masses, abnormal calcifications, or other abnormalities. MM/MM tomosynthesis screening BI IMPRESSION: No mammographic evidence of malignancy. ASSESSMENT: BI-RADS BI-RADS 2 - Benign Findings RECOMMENDATION: Routine annual mammography screening. 1 year F/U This examination should not preclude the clinical evaluation of a suspicious palpable abnormality. This patient's information was entered into a reminder system with a target due date for their next mammogram. Electronically signed by: Shannon Young DO 01/05/2024 05:53 PM EDT
== END 2023-12-22 14:04 | disposition home or self-care (01) ==
LOC: HO.MAMMO 14:03
PROVIDERS: PCP Internal Medicine; Visit Provider Internal Medicine
DX: Z12.31 Encounter for screening mammogram for malignant neoplasm of breast (principal)
CPT/HCPCS: 77063; 77067; 99202

== ENCOUNTER → 2023-12-22 14:30 | Outpatient (BNV) | payer OTHER, SELFPAY | PROVIDERS: PCP Internal Medicine; Visit Provider Internal Medicine | DX: Z12.31 Encounter for screening mammogram for malignant neoplasm of breast (principal) | CPT/HCPCS: 77063; 77067 ==

== ENCOUNTER 2023-12-22 14:40 | Outpatient (AMB) | payer OTHER, SELFPAY ==
--- NOTE | 2023-12-22 14:52 | A.OFFVIS_ITS ---
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 Patient reports severe pain and sensitivity with palpitation. She expresses lifting objects causes pain in her left shoulder, she is unable to lifting her arm above head. Tylenol, topical gel and ibuprofen provides relief. Denies recent injury, numbness, tingling, and previous treatment for her shoulders. 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 Patient states that her pain has become severe over this time, and states that this has significantly impeded her activities of daily living. Patient states that she does have significant tenderness to palpation of the left shoulder as well. Patient states she is unable to lift her shoulder above her head due to severe pain. No other acute complaints or concerns at this time. [facility] Medical History Carpal tunnel syndrome Surgical History H/O: hysterectomy History of hand surgery Family History Mother Diabetes Heart disease Dementia HTN (hypertension) Father HTN (hypertension) Hyperlipemia Alzheimer disease Social History Alcohol intake: never Patient Tobacco Use Status: Never used Tobacco Current occupational status: employed Current occupation: rt handed/[employer] Review of Systems Const All systems reviewed & are unremarkable except as noted in HPI and below Physical Exam Extrem Other: On inspection, there is no visible deformity of the patient's left shoulder No edema, erythema, ecchymosis noted No lacerations, abrasions, open areas No evidence of infection Patient reports diffuse tenderness to palpation about the left shoulder, worst on the superior aspect and over the greater tuberosity Patient is able to forward flex to 90 degrees without difficulty Patient is able to externally rotate to approximately 50 degrees, slightly less than on the right, restricted due to pain Negative empty can test Negative belly press Negative lift-off Positive Cohen Results Reviewed Results Reviewed: X-rays obtained in the office today and independently reviewed by me, Chirag Brock PA-C, demonstrate calcific tendinitis of the left shoulder. No fracture or acute bony abnormality noted. Assessment & Plan Assessment & Plan (1) Calcific tendonitis of left shoulder: Code(s): M75.32 - Calcific tendinitis of left shoulder Category: Medical (2) Impingement syndrome of left shoulder: Code(s): M75.42 - Impingement syndrome of left shoulder Category: Medical Plan 1. Impingement syndrome of left shoulder 2. Calcific tendinitis of left shoulder Patient is educated about these conditions Patient is educated about the typical recovery course At this time, patient is referred to physical therapy for range of motion, strengthening, stabilization of the left shoulder for impingement syndrome and calcific tendinitis Patient is amenable to this plan If 6-8 weeks after patient starts physical therapy, she is not noticing any improvement she can call our office for further evaluation and discussion of any further imaging or treatment options indicated at that time. Orders: Orders PT Evaluation and Treatment 12/22/23 M75.42 - Impingement syndrome of left shoulder, M75.32 - Calcific tendinitis of left shoulder Coding Level of Care Code New Pt Level 3 (49355) Diagnoses Calcific tendonitis of left shoulder M75.32 Impingement syndrome of left shoulder M75.42
== END 2023-12-22 15:28 | disposition home or self-care (01) ==
PROVIDERS: PCP Internal Medicine
DX: M75.32 Calcific tendinitis of left shoulder (principal); M75.42 Impingement syndrome of left shoulder
CPT/HCPCS: 99203

== ENCOUNTER 2024-02-23 09:01 | Outpatient (REF) | payer OTHER, SELFPAY ==
--- NOTE | ~2024-02-23 | XR_ITS ---
EXAMINATION: XR KNEE 4 OR MORE VIEWS RIGHT CLINICAL INFORMATION: pain COMPARISON: None available at the time of this dictation. TECHNIQUE: 6 views frontal lateral tunnel view patella sunrise view FINDINGS: BONES: No fracture or dislocation is present. JOINTS: Narrowing of joint spaces and developed osteophytes from the edges of articular surfaces suggest degenerative osteoarthritis. SOFT TISSUE: Normal XR/XR knee RT 4V IMPRESSION: Mild tricompartment degenerative osteoarthritis. No fracture. Electronically signed by: Sharon Daly MD 02/23/2024 01:28 PM EST [facility]
[2024-02-23 11:06] LABS: MANUAL DIFF FLAG NO
[2024-02-23 11:17] LABS: Basophils Absolute Auto 0.1 X10*3/uL (0.0-0.2); Basophils Percent Auto 0.8 % (0-2); Eosinophils Absolute Auto 0.1 X10*3/uL (0.0-0.4); Eosinophils Percent Auto 1.1 % (0-4); Hematocrit 39.8 % (37.0-47.0); Hemoglobin 12.9 g/dl (12.0-16.0); Imm Gran Abs Auto 0.02 X10*3/uL (0.00-0.03); Imm Gran Pct Auto 0.3 % (0.0-0.4); Lymphocytes Absolute Auto 2.4 X10*3/uL (1.2-4.9); Lymphocytes Percent Auto 36.6 % (20-40); Mean Corpuscular HGB Conc 32.4 g/dl (31.0-35.0); Mean Corpuscular Hemoglobin 27.5 pg (27.0-33.0); Mean Corpuscular Volume 84.9 fL (80.0-98.0); Mean Platelet Volume 11.5 fL (9.4-12.3); Monocytes Absolute Auto 0.5 X10*3/uL (0.1-1.2); Monocytes Percent Auto 7.8 % (2-11); Neutrophils Absolute Auto 3.4 x10*3/uL (2.0-8.3); Neutrophils Percent Auto 53.4 % (45-73); Platelet Count 262 X10*3/uL (160-400); Red Blood Count 4.69 X10*6/uL (4.20-5.50); Red Cell Distribution Width 13.6 % (11.0-16.0); White Blood Count 6.4 X10*3/uL (4.8-10.8)
[2024-02-23 11:25] LABS: Estimated Average Glucose 111 mg/dL; Hemoglobin A1C 128.8911 umol/L; Hemoglobin A1c % 5.5 % (<6.0); Total Hemoglobin (HGBA1C) 3473.7968 umol/L
[2024-02-23 11:51] LABS: Alanine Aminotransferase 17 U/L (0-31); Albumin Level 4.2 g/dL (3.5-5.0); Alkaline Phosphatase 98 U/L (39-117); Anion Gap 10 (12-20); Aspartate Amino Transferase 24 U/L (5-31); Bilirubin Total 0.5 mg/dL (0.0-1.0); Blood Urea Nitrogen 13 mg/dL (9-16); Calcium 9.4 mg/dL (8.4-10.2); Carbon Dioxide 25 mmol/L (22-29); Chloride 107 mmol/L (96-108); Cholesterol 175 mg/dL (<200); Estimated Glomerular Filt Rate > 60; Glucose Random 88 mg/dL (60-115); HDL Cholesterol 74 mg/dL (>40); LDL Cholesterol Calculated 86 mg/dL (<100); Potassium 4.3 mmol/L (3.3-5.1); Sodium 138 mmol/L (135-145); TSH reflex Free T4 0.89 uIU/mL (0.32-4.0); Total Protein 7.7 g/dL (6.5-8.0); Triglycerides 76 mg/dL (<150); Vitamin D 25-OH Total 21.5 ng/mL (>30)
[2024-02-23 12:44] LABS: HIV AB/AG Nonreactive (Nonreactive); HIV Num 1 0.06 S/CO (0.00-0.99); ~HepC Num1 0.41 S/CO (0.00-0.79); ~Hepatitis C Antibody Nonreactive (Nonreactive)
== END 2024-02-23 09:02 | disposition home or self-care (01) ==
LOC: HO.HHCL 09:01
PROVIDERS: Visit Provider Internal Medicine
DX: Z00.00 Encounter for general adult medical examination without abnormal findings (principal); M25.561 Pain in right knee; G89.29 Other chronic pain
CPT/HCPCS: 36415; 73564; 80053; 80061; 82306; 83036; 84443; 85025; 86803; 87389

== ENCOUNTER 2024-06-16 14:59 | Outpatient (RCR) | payer OTHER, SELFPAY | END 2024-07-09 10:28 | disposition home or self-care (01) | LOC: HO.PT 14:59 | PROVIDERS: PCP Internal Medicine; Visit Provider General Practice | DX: M17.11 Unilateral primary osteoarthritis, right knee (principal) | CPT/HCPCS: 97110; 97140; 97161 ==

== ENCOUNTER 2024-11-01 15:25 | Emergency (ER) | payer OTHER, SELFPAY ==
--- NOTE | ~2024-11-01 | XR_ITS ---
EXAMINATION: XR SCAPULA, LEFT CLINICAL INFORMATION: fall 7/4, worsening pain COMPARISON: None available. TECHNIQUE: AP and scapular Y views of the left scapula. FINDINGS: The bones and soft tissues are normal. No scapular fracture. Glenohumeral and acromioclavicular alignment is normal. XR/XR scapula LT IMPRESSION: No acute findings left scapula. Electronically signed by: Aldo Brumfield MD 11/01/2024 04:04 PM EDT
--- NOTE | ~2024-11-01 | CT_ITS ---
EXAMINATION: CT HEAD WITHOUT CONTRAST CLINICAL INFORMATION: Intractable headache for 2.5 weeks, nausea. COMPARISON: None available. TECHNIQUE: Contiguous axial imaging was performed from the skull base to vertex without intravenous administration of contrast. This CT examination was performed using dose optimization techniques as appropriate, variously including the following: *Automated exposure control *Adjustment of mA and/or kV according to patient size (this includes techniques or standardized protocols for targeted exams where dose is matched to indication/reason for exam; i.e. extremities or head) *Use of iterative reconstruction technique FINDINGS: There is no evidence of intracranial hemorrhage or extra-axial fluid collection. There is no mass effect, or edema. No CT evidence of acute territorial infarct. Ventricles, sulci, and cisterns are normal in size and configuration for patient age. No hydrocephalus. No midline shift. Negative hyperdense MCA sign. Negative insular ribbon sign. Normal pituitary. Mild atheromatous calcification of the bilateral carotid siphons. Globes and orbital contents image normally. No extracranial soft tissue abnormalities. The paranasal sinuses, mastoid air cells, and tympanic cavities are normally aerated. No suspicious bony abnormalities. There are no acute fractures evident. CT/CT head/brain wo IV con IMPRESSION: No acute intracranial abnormality. Electronically signed by: Aldo Brumfield MD 11/01/2024 04:19 PM EDT
[2024-11-01 15:39] VITALS: BP 139/90; PULSE 88; RESP 19; TEMP 36.6; O2SAT 98; BMI 28.3
--- NOTE | 2024-11-01 15:40 | ED.FALL ---
HPI - Fall General Chief Complaint: General Medical Stated Complaint: fall Time Seen by Provider: 11/01/24 17:05 Source: patient and old records reviewed Mode of arrival: ambulatory Limitations: no limitations History of Present Illness ED Provider: MIKE JUDGE Narrative: 59 yo female not on thinners fell back on 10/15 after slipping on sock she struck her head with brief LOC and also c/o L thoracic back pain. She denies any other injury. She did not do brain rest. She has had headache and pain since. She has been doing her normal daily life and activities that cause her pain. She has not rested. complaint: fall Onset (ago): day(s) (10/15) Fall from: standing Fall witnessed: no Place fall occurred: home Loss of consciousness: none Length of LOC: second(s) Prolonged down time: no Symptoms prior to fall: none Context: tripped/slipped Location of injury: head and back Severity: moderate Quality: dull and aching Associated symptoms (after fall): headache Related Data Home Medications ?Medication ?Instructions ?Recorded ?Confirmed ibuprofen 600 mg tablet 600 mg PO TID 03/27/22 naproxen 250 mg tablet 250 mg PO BID PRN 12/22/23 Previous Rx's ?Medication ?Instructions ?Recorded acetaminophen 500 mg tablet 500 mg PO Q6H PRN fever or pain 08/04/22 (Tylenol Extra Strength) #30 tabs hydroxyzine HCl 25 mg tablet 50 mg (2 x 25 mg) PO BEDTIME PRN 11/01/24 sleep #60 tabs methocarbamol 750 mg tablet 750 mg PO Q8H PRN spasm #30 tabs 11/01/24 Allergies Allergy/AdvReac Type Severity Reaction Status Date / Time No Known Allergies Allergy Verified 11/01/24 15:44 Review of Systems Review of Systems: Constitutional : No Fever, No Chills, No Fatigue ENT/Mouth : No sore throat, No Rhinorrhea Eyes: No Eye Pain, No Swelling, No Redness Cardiovascular : No Chest Pain, No SOB, No Dyspnea on Exertion Respiratory : No Cough, No Sputum Gastrointestinal : No Nausea, No Vomiting, No Diarrhea, No abdominal Pain Genitourinary : No Dysuria, No Urinary Frequency, No Hematuria, Musculoskeletal : No joint pain, No Myalgias, No Joint Swelling Skin : No Skin Lesions, No rash Neuro : No Weakness, No Numbness, No Dizziness, positive Headache All other systems reviewed and are negative [facility] Past Medical History Attestation statement: The following information was validated with the patient. Source: old records reviewed Medical History Carpal tunnel syndrome Surgical History History of hand surgery H/O: hysterectomy Family History Family History Mother Diabetes Heart disease Dementia HTN (hypertension) Father HTN (hypertension) Hyperlipemia Alzheimer disease Social History Social History Alcohol intake: current Alcohol intake frequency: holidays/special occasions only Patient Tobacco Use Status: Never used Tobacco Smoked in Last 30 Days: No Use of substances other than those prescribed or required for medical reasons: No Advance Directives: No Advance Directives Information Provided: No Do you have a plan to hurt others: No Plan Patient : No Current occupational status: employed Current occupation: rt handed/[employer] Physical Exam Vital Signs: Vital Signs: Last Vital Signs Temp 97.9 F 11/01/24 17:05 Pulse 77 11/01/24 17:05 Resp 18 11/01/24 17:05 BP 122/89 11/01/24 17:05 Pulse Ox 99 11/01/24 17:05 O2 Del Method Room Air 11/01/24 17:05 BMI result Body Mass Index 28.3 Appearance: Alert. Oriented X3. No acute distress. Eyes: Pupils equal, round and reactive to light. ENT: Pharynx normal. Neck: Normal inspection. Neck supple. neg spurling test, no UE weakness, no midline ttp CVS: Normal heart rate and rhythm. Pulses normal. Respiratory: No respiratory distress. Breath sounds normal. Abdomen: Soft and nontender. Skin: Skin warm and dry. Normal skin color. Normal skin turgor. Extremities: No lower extremity edema. No calf ttp Neuro: Oriented X 3. No motor deficit. No sensory deficit. CN2-12 intact Course Course Course Narrative: This is an RME performed by Aj Aleman CNP: Additional HPI, ROS, PE not included below will be deferred to primary provider. Patient is a 59-year-old female who presents emergency department for evaluation. On 10/15/2024 she had a mechanical slip and fall in her home, states that she may have lost consciousness for a few sec. she struck the back of her head and her left shoulder. She has been having a constant headache since then, no relief with Tylenol. She also has pain to the left posterior shoulder/ scapula that she states has significantly worsened since yesterday without new injury. Called her primary care doctor's office last week was advised to come to emergency department at that time. Plan: No focal neurological deficits on examination, reporting an entirely intractable headache the past 2.5wks, will obtain CT of the head and XR scapula Medical Decision Making Medical Decision Making MDM Narrative: 59 yo female not on thinners here with c/o fall with headstrike and brief LOC unfortunately did not do brain rest now having chronic migraines. She is neuro intact, CT head neg for SDH. She also c/o L scapula pain - xray ordered, if negative will order meds and brain rest. Differential Diagnosis Differential Diagnoses: The differential diagnosis associated with the presentation includes concussion, back strain Admission/Observation Consideration of admission/observation: Escalation of care including admission/observation considered GCS 15 stable for DC Independent Interpretation I performed an independent interpretation of an: Plain X-Ray (no fracture) and CT Scan (no ICH) Radiology Impression Discussion of test interpretation with radiology: I have reviewed the radiologist's reading. External Record Review External record reviewed: Outpatient record Prescription Management I considered prescription management with: Pain Medication and Other Discharge Plan Discharge Clinical Impression: Concussion Qualifiers: Encounter type: initial encounter Loss of consciousness presence/duration: with LOC of 30 min or less Qualified Code(s): S06.0X1A - Concussion with loss of consciousness of 30 minutes or less, initial encounter Acute thoracic back pain Qualifiers: Back pain laterality: left Qualified Code(s): M54.6 - Pain in thoracic spine Patient Disposition: Home, Self-Care Instructions: Concussion (ED), Back Pain (ED) Additional Instructions: CT head and xray normal return for worsening pain, numbness, weakness, or any other concerns rest and stay hydrated Prescriptions: New methocarbamol 750 mg tablet 750 mg PO Q8H PRN (Reason: spasm) Qty: 30 0RF hydroxyzine HCl 25 mg tablet 50 mg PO BEDTIME PRN (Reason: sleep) Qty: 60 0RF No Action acetaminophen [Tylenol Extra Strength] 500 mg tablet 500 mg PO Q6H PRN (Reason: fever or pain) Qty: 30 0RF ibuprofen 600 mg tablet 600 mg PO TID naproxen 250 mg tablet 250 mg PO BID PRN Stand Alone Forms: Work/School Release Print Language: [place]i
[2024-11-01 17:05] VITALS: BP 122/89; PULSE 77; RESP 18; TEMP 36.6; O2SAT 99
--- NOTE | 2024-11-01 17:29 | PC.NURSE ---
59 F presents to ED with headache and left shoulder pain that has been going on since she slipped in her socks and had a fall on 10/16/24. Pt sts brief LOC after fall. RR even and unlabored ,denies SOB or chest pain. No other complaints. A+Ox4 and no neuro defects noted.
[2024-11-01 17:57] VITALS: BP 129/84; PULSE 67; RESP 18; O2SAT 98
[2024-11-01 18:01] VITALS: BP 129/84; PULSE 67; RESP 18; TEMP -17.7; TEMP 0; O2SAT 98
--- NOTE | 2024-11-02 14:03 | PC.NURSE ---
Pt presented to ER this am requesting medication get sent to a new pharmacy because her insurance was not accepted at original pharmacy. Patient's original name was misspelled, registration needing to collect her information a second time. Explained with semiconductor package symbol stamper that Marcus (PIT provider today) can send new medications to her preferred pharmacy, but can only send 1 medication for her pain because it was not clear to him why the additional medication (Atarax) was ordered. Marcus was not her provider yesterday, patient would have to check in again for work up for additional med if she needs it. Patient informed muscle relaxer was sent to her preferred pharmacy. Apologized for the delay/ pharmacy confusion. Patient verbalized understanding
== END 2024-11-01 18:02 | disposition home or self-care (01) ==
PROVIDERS: Emergency Provider Emergency Medicine; PCP Internal Medicine
DX: S06.0X1A Concussion with loss of consciousness of 30 minutes or less, initial encounter (principal); W01.0XXA Fall on same level from slipping, tripping and stumbling without subsequent striking against object, initial encounter; M54.6 Pain in thoracic spine; Y93.89 Activity, other specified; Y92.039 Unspecified place in apartment as the place of occurrence of the external cause; Y99.9 Unspecified external cause status
CPT/HCPCS: 70450; 73010; 96372; 99284; J1885

== ENCOUNTER → 2024-11-01 15:46 | Outpatient (BNV) | payer OTHER, SELFPAY | PROVIDERS: PCP Internal Medicine; Visit Provider Radiology Diagnostic Radiology | DX: R51.9 Headache, unspecified (principal); R11.0 Nausea; M25.512 Pain in left shoulder | CPT/HCPCS: 70450; 73010 ==

== ENCOUNTER 2024-11-24 14:39 | Outpatient (AMB) | payer OTHER, SELFPAY ==
--- NOTE | 2024-11-24 14:44 | A.OFFVIS_ITS ---
Vital Signs 11/24/24 14:46 Height 5 ft Weight 145 lb 8.081 oz BMI 28.4 BP 129/87 Blood Pressure Location Rt brachial Position Sitting Pulse 74 Intake Visit Reasons: colo screen Intake Note: Christi presents in office today for colonoscopy screening and colonoscopy. CC: Patient states that she has nconstipation but takes prunelax at bedtime and is able to have BM the following day. Agricultural Equipment Operator Required: Yes Agricultural Equipment Operator Language: [place] Allergies No Known Allergies Allergy (Verified 11/24/24 14:50) HPI HPI colo screen: Details: Assessment & Plan (1) Chronic idiopathic constipation: Code(s): K59.04 - Chronic idiopathic constipation Plan: [place] #Live vilma She is only taking the Linzess 1 day a week because otherwise I will be in the BR all day. She was on 145mcg, so we will decrease this to 72mcg. IF this is too strong we will reduce to Amitiza. She is also using OTC sennalax in between. We did not yet order the colonoscopy as she really disliked the prep, we will try a lower volume next time. She should have a repeat in the next year or so. I would like to build rapport and credibility for her 1st by addressing her problem. She wants a nutrition referral for [facility], I will try but unsure of ins coverage. ROV 6 weeks. Orders: Referrals Instructional Support Specialist Nutrition Referral K59.04 - Chronic idiopathic constipation Medications: New linaclotide (Linzess)72 mcg PO QAM 30 caps 3RF Discontinued linaclotide (Linzess) Discontinued Reason: Doctor's Gloed743 mcg PO QAM 30 caps 3RFK59.04 - Chronic idiopathic constipation PMX Osteoarthritis of the knees Impingement of the shoulder Carpal tunnel syndrome * SURGICAL HISTORY Right hand surgery Hysterectomy * ALLERGIES: NKDA * [employer] LABS: none since 2023 TODAY'S VISIT [place] # V live This patient has been lost to follow-up since 03/2022 and apparently is here today to discuss a screening colonoscopy. The patient expressed to my MA that she does not want to have a colonoscopy because she does not want to drink the prep. She tells her that she has to Cologuard kit at home and she would prefer to complete this rather than have a colonoscopy screening. The only GI problem she has a constipation was resolves well with using [id number] prophylax. With this information I return her to her primary care provider and I urged her to complete the Cologuard. [facility] Medical History Carpal tunnel syndrome Surgical History History of hand surgery H/O: hysterectomy Family History Mother Diabetes Heart disease Dementia HTN (hypertension) Father HTN (hypertension) Hyperlipemia Alzheimer disease Social History Alcohol intake: current Alcohol intake frequency: holidays/special occasions only Patient Tobacco Use Status: Never used Tobacco Current occupational status: employed Current occupation: rt handed/[employer] Physical Exam Vital Signs: Last Vital Signs Pulse 74 11/24/24 14:46 BP 129/87 11/24/24 14:46 BMI result Body Mass Index 28.4 Assessment & Plan Assessment & Plan (1) Colon cancer screening declined: Code(s): Z53.20 - Procedure and treatment not carried out because of patient's decision for unspecified reasons Category: Medical Plan [place] # V live This patient has been lost to follow-up since 03/2022 and apparently is here today to discuss a screening colonoscopy. The patient expressed to my MA that she does not want to have a colonoscopy because she does not want to drink the prep. She tells her that she has to Cologuard kit at home and she would prefer to complete this rather than have a colonoscopy screening. The only GI problem she has a constipation was resolves well with using [id number] prophylax. With this information I return her to her primary care provider and I urged her to complete the Cologuard. Coding Level of Care Code Est Pt Level 1 (86684) Diagnoses Colon cancer screening declined Z53.20
[2024-11-24 14:46] VITALS: BP 129/87; PULSE 74; BMI 28.4
--- OUTSIDE RECORDS SUMMARY | 2024-11-24 14:47 | XMS_ITS | Clinical Summary ---
Author Organization [employer] Address [address] [facility] [address] [place] [address] Care Team Providers Care Mason Tender Name Role Phone Irene Gallardo MD Primary Care Provide r Allergies No known active allergies Medications * This document contains information received from the source organization and may not represent a complete record from that organization. cetirizine (ZyrTEC) 10 MG tablet Take 1 tablet by mouth 1 (one) time each day. 12/15/19 22 Active Diclofenac Sodium (Voltaren) 1 % gel Apply topically every 8 (eight) hours. 12/15/19 22 Active melatonin 10 MG tablet 1 tab at bedtime 01/12/20 21 Active sodium chloride ([place]) 0.65 % nasal spray 1-2 spray on each nostril every 2-3 hours as needed for nasal congestion 08/01/19 22 Active zolpidem (Ambien) 5 MG tablet Take 1 tablet (5 mg) by mouth if needed at bedtime for sleep. 30 tablet 08/01/19 24 Active DULoxetine (Cymbalta) [address] capsule Take 1 capsule (60 mg) by mouth Once per day. Do not crush or chew. 30 capsule 1 08/01/19 24 Active ibuprofen 200 MG tablet Take 2 tablets (400 mg) by mouth every 8 (eight) hours if needed for mild pain or moderate pain. 30 tablet 09/05/19 24 Active diclofenac sodium 3 % gelIndications :Acute pain of left shoulder,Arm pain, left Apply topically 2 times daily. 100 g 10/20/19 24 Active cyclobenzaprin e (Flexeril) 10 MG tabletIndicati ons:Acute pain of left shoulder,Arm pain, left Take 1 tablet (10 mg) by mouth at bedtime for 10 days. 10 tablet 10/20/19 24 Active omeprazole OTC (PriLOSEC OTC) 20 MG EC tablet Take 1 tablet (20 mg) by mouth before breakfast. Do not crush, chew, or split. 30 tablet 11 04/16/19 25 026 Active LORazepam (Ativan) 0.5 MG tabletIndicati ons:Anxiety Take one table 1-2 hors before the flight 4 tablet 06/29/19 25 Active hydrOXYzine HCl (Atarax) 25 MG tabletIndicati ons:Anxiety,Pr imary insomnia Take 1 tablet (25 mg) by mouth if needed in the morning, at noon, and at bedtime for itching. 90 tablet 11/05/19 25 025 Active phentermine 15 MG capsuleIndicat ions:Overweigh t with body mass index (BMI) of 29 to 29.9 in adult Take 1 capsule (15 mg) by mouth before breakfast. 30 capsule 2 11/05/19 25 025 Active doxepin (Silenor) 6 mg tablet tabletIndicati ons:Primary insomnia Take 1 tablet (6 mg) by mouth at bedtime. 30 tablet 2 11/13/19 25 Active hydrOXYzine HCl (Atarax) 25 MG tabletIndicati ons:Anxiety,Pr imary insomnia Take 1 tablet (25 mg) by mouth if needed in the morning, at noon, and at bedtime for itching. 90 tablet 11/05/19 25 025 Discontinued phentermine 15 MG capsuleIndicat ions:Overweigh t with body mass index (BMI) of 29 to 29.9 in adult Take 1 capsule (15 mg) by mouth before breakfast. 30 capsule 2 11/05/19 25 025 Discontinued traZODone (Desyrel) 50 MG tabletIndicati ons:Primary insomnia Take 1 tablet (50 mg) by mouth at bedtime. 30 tablet 1 11/13/19 25 025 Discontinued Active Problems Problem Noted Date Diagnosed Date Primary insomnia 11/04/2024 Assessment & Plan (11/04/2024 1:06 PM EDT): Sleep hygiene counseling done Overweight with body mass in dex (BMI) of 29 to 29.9 in adult 11/04/2024 Assessment & Plan (11/04/2024 1:05 PM EDT): Today extensive discussion was done about life style modifications I advise healthy diet (low calorie) and cardiovascular exercise I decided today to start patient on phentermine, side effects of medication where discuss Fibromyalgia 11/04/2024 Assessment & Plan (11/04/2024 1:05 PM EDT): Patient was educated about multidisciplinary approach for her condition, it was advise cardiovascular exercise, maintain hydration, treat anxiety/depression and take medications as directed Acute right ankle pain 11/04/2024 GILBERT (generalized anxiety disorder) 09/20/2024 Assessment & Plan (11/04/2024 1:05 PM EDT): Counseling done [facility] referral done I prescribed hydroxyzine PRN Assessment & Plan (09/24/2024 1:09 PM EDT): During IBH Consult Christi presenting with excessive worry/anxiety, difficulty controlling worry, anxiety/worry associated to restlessness and/or feeling keyed-up/On edge , easily fatigued , difficulty concentrating and/or mind going blank , irritability, muscle tension , and sleep disturbance difficulty falling asleep, Fear , and sense of dread ; for a period of 18+ mo, for most or all symptoms in the context of family issues, illness or family illness, and employment concern. Christi was able to identify triggers causing presentation of sxs. Pt is going through personal stressors that are causing complicated interpersonal relationships, especially in her workplace. These challenges are also causing anxiety that is present for most part of the day, everyday. Not taking medication and open to start MH services to help decrease sxs. Pt feels motivated and willing to make changes. Viral gastroenteritis 05/06/2024 Assessment & Plan (05/06/2024 12:06 PM EST): It was advised to maintain hydration with small sips of fluids It was advised rest Zofran and acetaminophen as needed prescribed Colon cancer screening 02/16/2024 Chronic pain of right knee 02/16/2024 Assessment & Plan (02/16/2024 12:22 PM EST): XRAY ordered patient will be contacted with [facility] 02/16/2024 Viral upper respiratory infection 12/23/2023 Assessment & Plan (12/23/2023 1:23 PM EDT): No evidence of respiratory distress. Symptoms mild. Physical exam without acute concerns. -COVID, Flu and Strep negative. -No evidence of dehydration. -Supportive care advised. -Isolation recommendations discussed. -Given work/school note. -ER precautions discussed. -Seek medical attention for worsening symptoms. Acute pain of left shoulder 10/20/2023 Arm pain, left 10/20/2023 Dental calculus 07/01/2023 Chronic pain of left thumb 03/26/2022 Assessment & Plan (11/25/2022 10:31 PM EDT): Pain did not improved with PT, will refer to hand surgery for evaluation, told to try to avoid repetitive movements Assessment & Plan (06/05/2022 9:32 AM EST): Patient has completed 3 session of PT, continue conservative treatment, avoid repetitive movements, apply ice/heat, and take tylenol for pain Assessment & Plan (03/26/2022 9:39 AM EST): Patient complains of chronic left thumb pain, she refers work in an environment which she needs to perform repetitive movements, will order ibuprofen, told to apply ice and will refer to PT Anxiety 03/26/2022 Assessment & Plan (06/05/2022 9:36 AM EST): Will refer to [facility]N, no suicidal/homicidal ideas Assessment & Plan (03/26/2022 9:40 AM EST): No suicidal/homicidal ideas, refers getting more anxious at night, will order hydroxyzine and will refer to [facility]N Hand pain 03/26/2022 Spasm 03/26/2022 Encounters * This document contains information received from the source organization and may not represent a complete record from that organization. Date Type Department Care Team Description 11/12/2024 Orders Only [address] [address] Irene Gallardo MD Primary insomnia (Primary Dx) 11/12/2024 Orders Only [address] [address] Irene Gallardo MD Primary insomnia (Primary Dx) 11/11/[address] [address] Irene Gallardo MD Medication Question 11/04/2024 10:45 AM EDT Office Visit [address] [address] Irene Gallardo MD Screening for colon cancer (Primary Dx); Anxiety; Fibromyalgia; Primary insomnia; Acute right ankle pain; Overweight with body mass index (BMI) of 29 to 29.9 in adult 11/04/2024 Travel 11/03/[address] [address] Irene Gallardo MD Chart Prep 11/01/2024 Orders Only [facility] External Provider, [facility] 10/27/2024 Patient Outreach [address] [address] Irene Gallardo MD Pre-visit Planning (SDOH screening completed on 04/26/2024) 10/21/[address] [address] Irene Gallardo MD Nurse Triage from Last 3 Months Immunizations Immunization Administration Dates Next Due HepB-CpG 12/09/2019,06/07/2019 Influenza Injectable Quadriv alant Preservative Free IIV4 MDCK 06/06/2020 Influenza injectable quadriv alent IIV4 with preservative 02/01/2019 Influenza, seasonal, injectable, preservative fr ee 02/16/2024 Moderna Covid-19 Vaccine 12+ 08/01/2020,03/23/20 21 Pfizer Covid-19 Vaccine 12+ 02/16/2024 Tdap 06/01/2019 Zoster, Recombinant 12/09/2019,06/01/2019 Family History Medical History Relation Name Comments Hypertension Father Diabetes Mother Hypertension Mother Coronary artery disease Sister Diabetes Sister Relation Name Status Comments Father Mother Sister Social History Tobacco Use Types Packs/Day Years Used Date Smoking Tobacco: Never Passive Smoke Exposure: Never Smokeless Tobacco: Never Tobacco Cessation:Counseling Given: Not Answered Alcohol Use Standard Drinks/Week Comments Never 0 (1 standard drink = 0.6 oz pur e alcohol) Depression Answer Date Recorded Patient Health Questionnaire-9 Score 21 11/04/2024 Patient Health Questionnaire-9 Score 21 11/04/2024 Last PHQ-9: Questionnaire Data Not on file 0 11/04/2024 Housing Stability Answer Date Recorded What is your housing situation today? I have trae carvalho 02/09/[address] you li ve. Do you have problems with any of the following? None of the above 02/09/2024 Food Insecurity Answer Date Recorded Within the past 12 months, y ou worried that your food would run out before you got money to buy more: Never True 02/09/2024 Within the past 12 months,th e food you bought just didn't last and you didn't have enough money to get more: Never True Transportation Answer Date Recorded In the past 12 months, has l ack of transportation kept you from medical appts, meetings, work or from getting things needed for daily living? No 02/09/2024 Utilities Answer Date Recorded In the past 12 months, has t he electric, gas, oil or water company threatened to shut off services in your home? No 02/09/2024 Depression Answer Date Recorded Patient Health Questionnaire-2 Score 5 11/04/2024 Internet Access Answer Date Recorded Internet Access Q1 Yes 02/09/2024 Internet Access Q2 Not on file 02/09/2024 Comments Unknown Sex and Gender Information Value Date Recorded Sex Assigned at Female 02/11/2022 10:36 AM EDT Legal Sex Female 10:36 AM EDT Gender Identity Female 02/11/2022 10:36 AM EDT Sexual Orientation Straight 02/11/2022 10 :36 AM EDT Last Filed Vital Signs Vital Sign Reading Time Taken Comments Blood Pressure 122/82 11/04/2024 11:02 AM EDT Pulse 77 11/04/2024 11:02 AM EDT Temperature 36.1 C (97 F) 11/04/2024 11:02 AM EDT Respiratory Rate 16 11/04/2024 11:02 AM EDT Oxygen Saturation 98% 11/04/2024 11:02 AM EDT Inhaled Oxygen Concentration - - Weight 68.1 kg (150 lb 3.2 oz) 11/04/2024 11:02 AM EDT Height 152.4 cm (5') 11/04/2024 11:02 AM EDT Body Mass Index 29.33 11/04/2024 11:02 AM EDT Plan of Treatment Health Maintenance Due Date Last Done Comments CT Colonography 1965 Colonoscopy 1965 Colorectal Cancer Screening 1965 FIT DNA/Cologuard 1965 FIT 1965 FOBT 1965 Sigmoidoscopy 1965 Pneumococcal Vaccine: 50+ Years (1 of 1 - PCV) 2014 Dental Oral Exam 01/02/2024 07/01/2023, 08/01/2022 Dental Prophylaxis 01/02/2024 07/01/2023, 08/01/2022 Dental X-Ray: Full Mouth 06/06/2024 06/05/2021 Dental X-Ray: Bitewings 07/01/2024 07/01/19, 08/01/2022 Influenza Vaccine (#1) 2024 , 06/06/2020, 02/01/2019 Mammogram 12/21/2024 12/22/2023, 12/12/2022, 03/05/2021 Alcohol/Substance Use Screening 02/15/2025 02/16/2024 SDOH Screening 04/26/2025 04/26/2024 Depression Monitoring 05/07/2025 11/04/2024 , 11/04/2024 Disability Screening 11/04/2025 11/04/2024 Tobacco Screening 11/04/2025 11/04/2024 DTaP/Tdap/Td Vaccines (2 - T d or Tdap) 06/01/2029 06/01/2019 RSV Patients and Patients Aged 60 years or older (1 - 1-dose 75+ series) 2039 Hepatitis B Vaccines Completed 12/09/2019, 06/07/2019 Zoster Vaccines Completed 12/09/2019, 06/01/2019 COVID-19 Vaccine Completed 02/16/2024, 08/01/2020, 07/04/2020 HIV Screening Completed 02/23/2024, 06/08/2020 Hepatitis C Screening Completed 02/23/2024 , 05/30/2023, 06/08/2020 HIB Vaccines Aged Out No longer eligi ble based on patient's age to complete this topic HPV Vaccines Aged Out No longer eligi ble based on patient's age to complete this topic Hepatitis A Vaccines Aged Out No long er eligible based on patient's age to complete this topic IPV Vaccines Aged Out No longer eligi ble based on patient's age to complete this topic Meningococcal B Vaccine Aged Out No l onger eligible based on patient's age to complete this topic Meningococcal Vaccine Aged Out No henrietta hussein eligible based on patient's age to complete this topic RSV under 20 months Aged Out No longe r eligible based on patient's age to complete this topic Rotavirus Vaccines Aged Out No longer eligible based on patient's age to complete this topic Procedures Procedure Name Priority Date/Time Associated Diagnosis Comments CT HEAD WO CONTRAST Routine 11/01/2024 3 :58 PM EDT XR SCAPULA LEFT Routine 11/01/2024 2:56 PM EDT HEPATITIS C AB W/REFL TO HCV RNA, QN, PCR Routine 02/23/2024 9:10 AM EST Health care maintenance HIV 1/2 ANTIGEN/ANTIBODY, FOURTH GENERATION W/RFL Routine 02/23/2024 9:10 AM EST Health care maintenance BI MAMMOGRAM SCREENING TOMOSYNTHESIS BILATERAL Routine 12/22/2023 2:06 PM EDT Full PROPHYLAXIS - ADULT Routine 07/01/2023 8:00 AM EDT Dental calculus BITEWINGS - 4 RADIOGRAPHIC IMAGES Routine 07/01/2023 8:00 AM EDT Dental calculus PERIODIC ORAL EVALUATION - ESTABLISHED PATIENT Routine 07/01/2023 8:00 AM EDT from Last 3 Months or Most Recently Relevant to Health Maintenance Results * CT Head w/o Contrast (11/01/2024 3:58 PM EDT) Anatomical Region Laterality Modality Head, Neck Computed Tomogra phy 11/01/2024 3:58 PM EDT Narrative 11/01/2024 4:23 PM EDT [place] [address] [address] Scan Report Signed Patient: Christi Welch MR#: [id number] : 1965 Acct:[id number] Age/Sex: 59 / F ADM Date: 11/01/24 Loc: HO.ED Attending Dr: Ordering Physician: Pretty Aleman CNP Date of Service: 11/01/24 Procedure(s): CT head/brain wo IV con Accession Number(s): [id number] cc: Irene Gallardo MD; Pretty Aleman [employer] Report Number: [id number]: Total DLP = 597.00 mGy-cm EXAMINATION: CT HEAD WITHOUT CONTRAST CLINICAL INFORMATION: Intractable headache for 2.5 weeks, nausea. COMPARISON: None available. TECHNIQUE: Contiguous axial imaging was performed from the skull base to vertex without intravenous administration of contrast. This CT examination was performed using dose optimization techniques as appropriate, variously including the following: *Automated exposure control *Adjustment of mA and/or kV according to patient size (this includes techniques or standardized protocols for targeted exams where dose is matched to indication/reason for exam; i.e. extremities or head) *Use of iterative reconstruction technique FINDINGS: There is no evidence of intracranial hemorrhage or extra-axial fluid collection. There is no mass effect, or edema. No CT evidence of acute territorial infarct. Ventricles, sulci, and cisterns are normal in size and configuration for patient age. No hydrocephalus. No midline shift. Negative hyperdense MCA sign. Negative insular ribbon sign. Normal pituitary. Mild atheromatous calcification of the bilateral carotid siphons. Globes and orbital contents image normally. No extracranial soft tissue abnormalities. The paranasal sinuses, mastoid air cells, and tympanic cavities are normally aerated. No suspicious bony abnormalities. There are no acute fractures evident. CT/CT head/brain wo IV con IMPRESSION: No acute intracranial abnormality. Electronically signed by: Aldo Brumfield MD 11/01/2024 04:19 PM EDT Dictated By: Alod Brumfield MD Signed By: <Electronically signed by Aldo Brumfield MD in OV> 11/01/24 1619 DD/ 1558 TD/TT: 11/01/24 1615 Rn Angiography: Procedure Note Donotuseinterpreter, Image - 11/01/[address] [place] [address] [address] Scan Report Signed Patient: Christi WelchMR#: [id number] : 1965Acct:[id number] Age/Sex: 59 / FADM Date: 11/01/24 Loc: HO.ED Attending Dr: Ordering Physician: Pretty Aleman CNP Date of Service: 11/01/24 Procedure(s): CT head/brain wo IV con Accession Number(s): [id number] cc: Irene Gallardo MD; Pretty Aleman [facility] Report Number: [id number]: Total DLP = 597.00 mGy-cm EXAMINATION: CT HEAD WITHOUT CONTRAST CLINICAL INFORMATION: Intractable headache for 2.5 weeks, nausea. COMPARISON: None available. TECHNIQUE: Contiguous axial imaging was performed from the skull base to vertex without intravenous administration of contrast. This CT examination was performed using dose optimization techniques as appropriate, variously including the following: *Automated exposure control *Adjustment of mA and/or kV according to patient size (this includes techniques or standardized protocols for targeted exams where dose is matched to indication/reason for exam; i.e. extremities or head) *Use of iterative reconstruction technique FINDINGS: There is no evidence of intracranial hemorrhage or extra-axial fluid collection. There is no mass effect, or edema. No CT evidence of acute territorial infarct. Ventricles, sulci, and cisterns are normal in size and configuration for patient age. No hydrocephalus. No midline shift. Negative hyperdense MCA sign. Negative insular ribbon sign. Normal pituitary. Mild atheromatous calcification of the bilateral carotid siphons. Globes and orbital contents image normally. No extracranial soft tissue abnormalities. The paranasal sinuses, mastoid air cells, and tympanic cavities are normally aerated. No suspicious bony abnormalities. There are no acute fractures evident. CT/CT head/brain wo IV con IMPRESSION: No acute intracranial abnormality. Electronically signed by: Aldo Brumfield MD 11/01/2024 04:19 PM EDT RP Dictated By: Aldo Brumfield MD Signed By: <Electronically signed by Aldo Brumfield MD in OV> 11/01/24 1619 DD/ 1558 TD/TT: 11/01/24 1615 Rn Angiography: [facility] External Provider IMG CT PROCEDURES Final Result * XR Scapula Left (11/01/2024 2:56 PM EDT) Anatomical Region Laterality Modality Body, Scapula Left Radiographic Raysa ging 11/01/2024 2:56 PM EDT Narrative 11/01/2024 4:07 PM EDT [place] [address] XRay Report Signed Patient: Christi Welch MR#: [id number] : 1965 Acct:[id number] Age/Sex: 59 / F ADM Date: 11/01/24 Loc: HO.ED Attending Dr: Ordering Physician: Pretty Aleman CNP Date of Service: 11/01/24 Procedure(s): XR scapula LT Accession Number(s): [id number] cc: Irene Gallardo MD; Pretty Aleman [employer] EXAMINATION: XR SCAPULA, LEFT CLINICAL INFORMATION: fall 7/, worsening pain COMPARISON: None available. TECHNIQUE: AP and scapular Y views of the left scapula. FINDINGS: The bones and soft tissues are normal. No scapular fracture. Glenohumeral and acromioclavicular alignment is normal. XR/XR scapula LT IMPRESSION: No acute findings left scapula. Electronically signed by: Aldo Brumfield MD 11/01/2024 04:04 PM EDT RP Dictated By: Aldo Brumfield MD Signed By: <Electronically signed by Aldo Brumfield MD in OV> 11/01/24 1604 DD/ TD/TT: 11/01/24 1557 Rn Angiography: Procedure Note Donotuseinterpreter, Image - 11/01/2024 [place] [address] XRay Report Signed Patient: Christi WelchMR#: [id number] : 1965Acct:[id number] Age/Sex: 59 / FADM Date: 11/01/24 Loc: .ED Attending Dr: Ordering Physician: Pretty Aleman CNP Date of Service: 11/01/24 Procedure(s): XR scapula LT Accession Number(s): [id number] cc: Irene Gallardo MD; Pretty Aleman [employer] EXAMINATION: XR SCAPULA, LEFT CLINICAL INFORMATION: fall 7/, worsening pain COMPARISON: None available. TECHNIQUE: AP and scapular Y views of the left scapula. FINDINGS: The bones and soft tissues are normal. No scapular fracture. Glenohumeral and acromioclavicular alignment is normal. XR/XR scapula LT IMPRESSION: No acute findings left scapula. Electronically signed by: Aldo Brumfield MD 11/01/2024 04:04 PM EDT RP Dictated By: Aldo Brumfield MD Signed By: <Electronically signed by Aldo Brumfield MD in OV> 11/01/24 1604 DD/ 1456 TD/TT: 11/01/24 1559 Rn Angiography: [facility] External Provider IMG XR PROCEDURES Final Result * Hepatitis C Antibody with Reflex to HCV, RNA, Quantitative, Real-Time PCR (02/23/2024 9:10 AM EST) Hepatitis C Antibody Nonreactive Nonreactive [facility] Comment:Antibodies to HCV no t detected; does not exclude early acuteHCV infection. Blood Venous blood specimen / Unknown 02/23/2024 9:10 AM EST 02/23/2024 11:04 AM EST Irene Ricardo MD LAB BLOOD ORDERABLES Final Result Performing Organization Address City/[facility]/ZIP Co de Phone Number [facility] [address] [place] [phone] * HIV-1/2 Antigen and Antibodies, Fourth Generation, with Reflexes (02/23/2024 9:10 AM EST) Pathologist [facility] [place] HIV AB/AG Nonreactive Nonreactive [facility] Comment:HIV-1 p24 Ag and/or HIV-1/HIV-2 Ab not detected.A test result that is nonreactive does not exclude thepossibility of exposure to or infection with HIV-1 and/orHIV-2. Nonreactive results in this assay for individualswith prior exposure to HIV-1 and/or HIV-2 may be due toantigen and antibody levels that are below the limit ofdetection of this assay.The [employer] HIV Ag/Ab Combo assay result andsupplemental assay results should be interpreted inconjunction with the patient's clinical presentation,history and other laboratory results. If the results areinconsistent with clinical evidence, additional testing issuggested to confirm the result. Blood Venous blood specimen / Unknown 02/23/2024 9:10 AM EST 02/23/2024 11:04 AM EST us Irene Ricardo MD LAB BLOOD ORDERABLES Final Result Performing Organization Address City/[facility]/ZIP Co de Phone Number [facility] [address] [place] [phone] * BI Mammogram Screening Tomosynthesis Bilateral (12/22/2023 2:06 PM EDT) Anatomical Region Laterality Modality Breast Bilateral Mammography 12/22/2023 2:06 PM EDT Narrative 01/05/2024 5:56 PM EDT [facility] [address] [place] [address] Mammography Report Signed Patient: Christi Welch MR#: [id number] : 1965 Acct:[id number] Age/Sex: 58 / F ADM Date: 12/22/23 Loc: HO.MAMMO Attending Dr: Dima Pepper MD Ordering Physician: Dima Valentin MD Res ults: 2Benign Findings Date of Service: 12/22/23 Follow Up: 1 Year From Orig inal Mammogram Procedure(s): MM tomosynthesis screening BI Accession Number(s): [id number] cc: Irene Gallardo MD; Dima Valentin MD EXAMINATION: MM SCREENING DIGITAL BREAST TOMOSYNTHESIS, BILATERAL CLINICAL INFORMATION: Screening. Asymptomatic. COMPARISON: Mammography: Comparison is made with available priors TECHNIQUE: Digital breast mammography with tomosynthesis is performed in both the craniocaudal and mediolateral oblique views along with computer-aided detection (CAD). FINDINGS: There are scattered areas of fibroglandular density (ACR BI-RADS breast composition Category b). Bilateral circumscribed oval masses which wax and wane consistent with benign fibrocystic changes. There are no significant masses, abnormal calcifications, or other abnormalities. MM/MM tomosynthesis screening BI IMPRESSION: No mammographic evidence of malignancy. ASSESSMENT: BI-RADS BI-RADS 2 - Benign Findings RECOMMENDATION: Routine annual mammography screening. 1 year F/U This examination should not preclude the clinical evaluation of a suspicious palpable abnormality. This patient's information was entered into a reminder system with a target due date for their next mammogram. Electronically signed by: Shannon Young DO 01/05/2024 05:53 PM EDT Dictated By: Shannon Young DO Signed By: <Electronically signed by Shannon Young DO in OV> 01/05/24 2484 DD/ 1406 TD/TT: 12/22/23 1425 Rn Angiography: Procedure Note Donotuseinterpreter, Image - 01/05/2024 [place] [facility] [address] [place], [place] [address] Mammography Report Signed Patient: Christi WelchMR#: [id number] : 1965Acct:[id number] Age/Sex: 58 / FADM Date: 12/22/23 Loc: HO.MAMMO Attending Dr: Dima Pepper MD Ordering Physician: Dima Valentin ults: 1Benign Findings Date of Service: 12/22/23Follow Up: 1 Year From Orig inal Mammogram Procedure(s): MM tomosynthesis screening BI Accession Number(s): [id number] cc: Irene Gallardo MD; Dima Valentin MD EXAMINATION: MM SCREENING DIGITAL BREAST TOMOSYNTHESIS, BILATERAL CLINICAL INFORMATION: Screening. Asymptomatic. COMPARISON: Mammography: Comparison is made with available priors TECHNIQUE: Digital breast mammography with tomosynthesis is performed in both the craniocaudal and mediolateral oblique views along with computer-aided detection (CAD). FINDINGS: There are scattered areas of fibroglandular density (ACR BI-RADS breast composition Category b). Bilateral circumscribed oval masses which wax and wane consistent with benign fibrocystic changes. There are no significant masses, abnormal calcifications, or other abnormalities. MM/MM tomosynthesis screening BI IMPRESSION: No mammographic evidence of malignancy. ASSESSMENT: BI-RADS BI-RADS 2 - Benign Findings RECOMMENDATION: Routine annual mammography screening. 1 year F/U This examination should not preclude the clinical evaluation of a suspicious palpable abnormality. This patient's information was entered into a reminder system with a target due date for their next mammogram. Electronically signed by: Shannon Young DO 01/05/2024 05:53 PM EDT Dictated By: Shannon Young DO Signed By: <Electronically signed by Shannon Young DO in OV> 01/05/24 6665 DD/ 1406 TD/TT: 12/22/23 1425 Rn Angiography: us Dima Pepper MD IMG BI PROCEDURES Final Result from Last 3 Months or Most Recently Relevant to Health Maintenance Insurance HSN PARTIAL [facility] 3 DENTAL - HSN PARTIAL (MEDICAID) Care Teams Mason Tender Relationship Specialty Start Date End Date Irene Gallardo MD [address] [place] [phone] PCP - General Internal Medicine 12/18/23
== END 2024-11-24 15:39 | disposition home or self-care (01) ==
LOC: HO.HGI 14:39
PROVIDERS: PCP Internal Medicine; Visit Provider Nurse Practitioner
DX: Z53.20 Procedure and treatment not carried out because of patient's decision for unspecified reasons (principal)

== ENCOUNTER → 2024-11-24 14:39 | Outpatient (BNVA) | payer OTHER, SELFPAY | PROVIDERS: PCP Internal Medicine; Visit Provider Nurse Practitioner | DX: Z01.818 Encounter for other preprocedural examination (principal); K59.00 Constipation, unspecified | CPT/HCPCS: 99211 ==

== ENCOUNTER 2025-01-31 15:08 | Outpatient (REF) | payer OTHER, SELFPAY ==
--- NOTE | ~2025-01-31 | MM_ITS ---
EXAMINATION: MM SCREENING DIGITAL BREAST TOMOSYNTHESIS, BILATERAL CLINICAL INFORMATION: Screening. Asymptomatic. COMPARISON: Mammography: Comparison is made with available priors TECHNIQUE: Digital breast mammography with tomosynthesis is performed in both the craniocaudal and mediolateral oblique views along with computer-aided detection (CAD). FINDINGS: There are scattered areas of fibroglandular density. Bilateral circumscribed oval masses which wax and wane consistent with benign fibrocystic changes. There are no significant masses, abnormal calcifications, or other abnormalities. MM/MM tomosynthesis screening BI IMPRESSION: No mammographic evidence of malignancy. ASSESSMENT: BI-RADS Category 2: Benign RECOMMENDATION: Routine annual mammography screening. 1 year F/U This examination should not preclude the clinical evaluation of a suspicious palpable abnormality. This patient's information was entered into a reminder system with a target due date for their next mammogram. Electronically signed by: Shannon Young DO 02/01/2025 12:55 PM EDT
--- OUTSIDE RECORDS SUMMARY | 2025-01-31 19:22 | XMS_ITS | Encounter Summary ---
Author Organization [employer] Address [address] [facility] 7t [place] [address] Care Team Providers Care Email Engineer Name Role Phone Irene Gallardo MD Primary Care Provide r Encounter Details Date Type Department Care Team (Late st Contact Info) Description 10/08/2023 Telephone [facility] MED & PEDS [address] [place], [place] [phone] Dima Valentin MD [address] [place] [address] Social History Tobacco Use Types Packs/Day Years Used Date Smoking Tobacco: Never Passive Smoke Exposure: Never Smokeless Tobacco: Never Alcohol Use Standard Drinks/Week Comments Never 0 (1 standard drink = 0.6 oz pur e alcohol) Depression Answer Date Recorded Patient Health Questionnaire-9 Score 0 03/26/2022 Housing Stability Answer Date Recorded What is your housing situation today? I have traeshamika carvalho 01/29/[address] you li ve. Do you have problems with any of the following? None of the above 01/29/2023 Food Insecurity Answer Date Recorded Within the past 12 months, y ou worried that your food would run out before you got money to buy more: Never True 01/29/2023 Within the past 12 months,th e food you bought just didn't last and you didn't have enough money to get more: Never True Transportation Answer Date Recorded In the past 12 months, has l ack of transportation kept you from medical appts, meetings, work or from getting things needed for daily living? No 01/29/2023 Utilities Answer Date Recorded In the past 12 months, has t he electric, gas, oil or water company threatened to shut off services in your home? No 01/29/2023 Depression Answer Date Recorded Patient Health Questionnaire-2 Score 0 03/26/2022 Comments Unknown Sex and Gender Information Value Date Recorded Sex Assigned at Female 02/11/2022 10:36 AM EDT Legal Sex Female 10:36 AM EDT Gender Identity Female 02/11/2022 10:36 AM EDT Sexual Orientation Straight 02/11/2022 10 :36 AM EDT documented as of this encounter Plan of Treatment Upcoming Encounters Date Type Department Care Team (Late st Contact Info) Description 02/01/2025 11:00 AM EDT Office Visit [facility] MEDICINE [address] [place] [phone] Irene Gallardo MD [address] [place] [phone] 03/21/2025 2:00 PM EST Office Visit [facility] OPTOMETRY [address] [place] [address] Tarka, Danae, OD [address] [place] [address] 03/29/2025 3:30 PM EST Office Visit [facility] MEDICINE [address] [place] [phone] Irene Gallardo MD [address] [place] [address] documented as of this encounter Visit Diagnoses Not on filedocumented in this encounter Additional Health Concerns Assessment Noted Time PHQ-9 Depression Total Score: 0 03/26/20 22 9:10 AM EST documented as of this encounter Care Teams Email Engineer Relationship Specialty Start Date End Date Irene Gallardo MD [address] [place] [phone] PCP - General Internal Medicine 12/18/23 documented as of this encounter
--- OUTSIDE RECORDS SUMMARY | 2025-01-31 19:22 | XMS_ITS | Encounter Summary ---
Author Organization [employer] Address [address] [facility] 7 [place] [address] Care Team Providers Care Wetland Scientist Name Role Phone Irene Gallardo MD Primary Care Provide r Reason for Visit * Reason Onset Date Comments Chart Prep 01/31/2025 Encounter Details Date Type Department Care Team ([facility] Contact Info) Description 01/31/2025 Telephone [facility] MEDICINE [address] [place] [address] Irene Gallardo MD [address] [place] [address] Chart Prep Social History Tobacco Use Types Packs/Day Years Used Date Smoking Tobacco: Never Passive Smoke Exposure: Never Smokeless Tobacco: Never Alcohol Use Standard Drinks/Week Comments Never 0 (1 standard drink = 0.6 oz pur e alcohol) Depression Answer Date Recorded Patient Health Questionnaire-9 Score 16 12/01/2024 Patient Health Questionnaire-9 Score 16 12/01/2024 Last PHQ-9: Questionnaire Data Not on file 0 12/01/2024 Housing Stability Answer Date Recorded What is [...] Answer Date Recorded Patient Health Questionnaire-2 Score 4 12/01/2024 Internet Access Answer Date Recorded Internet Access Q1 Yes 02/09/2024 Internet Access Q2 Not on file 02/09/2024 Comments Unknown Sex and Gender Information Value Date Recorded Sex Assigned at Female 02/11/2022 10:36 AM EDT Legal Sex Female 10:36 AM EDT Gender Identity Female 02/11/2022 10:36 AM EDT Sexual Orientation Straight 02/11/2022 10 :36 AM EDT documented as of this encounter Miscellaneous Notes * Telephone Encounter - Aubree Bryan MA - 01/31/2025 2:16 PM EDT Chart Prep Labs: not done from 11/04/24 Images: done 11/01/24 Referrals: Sleep test pending appointment Vaccines due: Covid, Flu, and PCV20 Screenings: colonoscopy and mammogram Overdue care gaps: Not applicable documented in this encounter Plan of Treatment Upcoming Encounters Date Type Department Care Team (Late st Contact Info) Description 02/01/2025 11:00 AM EDT Office Visit [facility] MEDICINE [address] [place] [phone] Irene Gallardo MD [address] [place] [address] 03/21/2025 2:00 PM EST Office Visit [facility] OPTOMETRY [address] [place] [address] Danae Zavala, OD [address] [place] [address] 03/29/2025 3:30 PM EST Office Visit [facility] MEDICINE [address] [place] [address] Irene Gallardo MD [address] [place] [address] documented as of this encounter Visit Diagnoses Not on filedocumented in this encounter Additional Health Concerns Assessment Noted Time PHQ-9 Depression Total Score: 16 025 11:07 AM EDT documented as of this encounter Care Teams Wetland Scientist Relationship Specialty Start Date End Date Irene Gallardo MD [address] [place] [address] PCP - General Internal Medicine 12/18/23 documented as of this encounter
--- OUTSIDE RECORDS SUMMARY | 2025-01-31 19:22 | XMS_ITS | Encounter Summary ---
Author Organization [employer] Address [address] [place] [address] 7 [place] [address] Care Team Providers Care Forestry Aid Technician Name Role Phone Irene Gallardo MD Primary Care Provide r Encounter Details Date Type Department Care Team (Latest Contact Info) Description 06/05/2020 Abstract [facility] CONVERSIONS Dental, Provider, DDS Social History Tobacco Use Types Packs/Day Years Used Date Smoking Tobacco: Never Assessed Comments Unknown Sex and Gender Information Value [...] Description 02/01/2025 11:00 AM EDT Office Visit [facility] MEDICINE [address] [place] [address] Irene Gallardo MD [address] [place] [address] 03/21/2025 2:00 PM EST Office Visit [facility] OPTOMETRY [address] [place] [address] Danae Zavala OD [address] [place] [address] 03/29/2025 3:30 PM EST Office Visit [facility] MEDICINE [address] [place] [address] Irene Gallardo MD [address] [place] [address] documented as of this encounter Visit Diagnoses Not on filedocumented in this encounter Care Teams Forestry Aid Technician Relationship Specialty Start Date End Date Irene Gallardo MD [address] [place], [place] [phone] PCP - General Internal Medicine 12/18/23 documented as of this encounter
--- OUTSIDE RECORDS SUMMARY | 2025-01-31 19:22 | XMS_ITS | Encounter Summary ---
Author Organization [employer] Address [address] [facility] 7 [place] [address] Care Team Providers Care Shank Archer Name Role Phone Irene Gallardo MD Primary Care Provide r Encounter Details Date Type Department Care Team (Late Contact Info) Description 04/22/2022 Telephone [facility] MEDICINE [address] [place] [phone] Dima Valentin MD [address] [place] [address] [phone] Social History Tobacco Use Types Packs/Day Years Used Date Smoking Tobacco: Never Smokeless Tobacco: Never Alcohol Use Standard Drinks/Week Comments Never 0 (1 standard drink = 0.6 oz pur e alcohol) Depression Answer Date Recorded Patient Health Questionnaire-9 Score 0 03/26/2022 Depression Answer Date Recorded Patient Health Questionnaire-2 Score 0 03/26/2022 Comments Unknown Sex and Gender Information Value Date Recorded Sex Assigned at Female 02/11/2022 10:36 AM EDT Legal Sex Female 10:36 AM EDT Gender Identity Female 02/11/2022 10:36 AM EDT Sexual Orientation Straight 02/11/2022 10 :36 AM EDT COVID-19 Exposure Response Date Recorded In the last 10 days, have yo u been in contact with someone who was confirmed or suspected to have Coronavirus/COVID-19? No / Unsure 03/26/2022 8:51 AM EST documented as of this encounter Plan of Treatment Upcoming Encounters Date Type Department Care Team (Late Contact Info) Description 02/01/2025 11:00 AM EDT Office Visit [facility] MEDICINE [address] [place] [address] Irene Gallardo MD [address] [place] [address] 03/21/2025 2:00 PM EST Office Visit [facility] OPTOMETRY [address] [place] [address] Lucas Danae, OD [address] [place] [address] 03/29/2025 3:30 PM EST Office Visit [facility] MEDICINE [address] [place] [address] Irene Gallardo MD [address] [place] [address] documented as of this encounter Visit Diagnoses Not on filedocumented in this encounter Additional Health Concerns Assessment Noted Time PHQ-9 Depression Total Score: 0 03/26/20 22 9:10 AM EST documented as of this encounter Care Teams Shank Archer Relationship Specialty Start Date End Date Irene Gallardo MD [address] [place], [place] [phone] PCP - General Internal Medicine 12/18/23 documented as of this encounter
--- OUTSIDE RECORDS SUMMARY | 2025-01-31 19:22 | XMS_ITS | Encounter Summary ---
Author Organization [employer] Address [address] [facility] 7 [place] [address] Care Team Providers Care General Freight Agent Name Role Phone Irene Gallardo MD Primary Care Provide r Reason for Visit * Reason Onset Date Comments Triage 07/31/2022 Encounter Details Date Type Department Care Team ([facility] st Contact Info) Description 07/31/2022 Telephone [facility] MED [facility] PEDS [address] [place] [address] Dima Valentin MD [address] [place] [address] Triage Social History Tobacco Use Types Packs/Day Years [...] suspected to have Coronavirus/COVID-19? No / Unsure 08/01/2022 2:32 PM EDT documented as of this encounter Miscellaneous Notes * Telephone Encounter - Shabnam Sharma - 07/31/2022 2:50 PM EDT Symptom: Blisters/Cuts on tongue Outcome: Schedule an appointment to be seen within 24 hours Reason: No high acuity concerns reported by caller The caller accepted this outcome Patient speaks Greenlandic. documented in this encounter Plan of Treatment Upcoming Encounters Date Type Department Care Team (Late st Contact Info) Description 02/01/2025 11:00 AM EDT Office Visit [facility] MEDICINE [address] [place] [address] Irene Gallardo MD [address] [place] [address] 03/21/2025 2:00 PM EST Office Visit [facility] OPTOMETRY [address] [place] [address] TarDanae kahn, OD [address] [place] [address] 03/29/2025 3:30 PM EST Office Visit [facility] MEDICINE [address] [place] [address] Irene Gallardo MD [address] [place] [address] documented as of this encounter Visit Diagnoses Not on filedocumented in this encounter Additional Health Concerns Assessment Noted Time PHQ-9 Depression Total Score: 0 03/26/20 22 9:10 AM EST documented as of this encounter Care Teams General Freight Agent Relationship Specialty Start Date End Date Irene Gallardo MD [address] [place] [phone] PCP - General Internal Medicine 12/18/23 documented as of this encounter
--- OUTSIDE RECORDS SUMMARY | 2025-01-31 19:22 | XMS_ITS | Clinical Summary ---
Author Organization [employer] Address [address] [facility] 7t [place] [address] Care Team Providers Care Sorting Machine Operator Name Role Phone Irene Gallardo MD Primary [...] at bedtime 01/12/20 21 Active sodium chloride ([place]) 0.65 % nasal spray 1-2 spray on [...] bedtime for itching. 90 tablet 11/05/19 25 Active doxepin (Silenor) 6 mg tablet tabletIndicati ons:Primary insomnia Take 1 tablet (6 mg) by mouth at bedtime. 30 tablet 2 11/13/19 25 Active phentermine 37.5 MG capsuleIndicat ions:Overweigh t with body mass index (BMI) of 29 to 29.9 in adult Take 1 capsule (37.5 mg) by mouth before breakfast. 30 capsule 01/25/20 25 025 Active phentermine 15 MG capsuleIndicat ions:Overweigh t with body mass index (BMI) of 29 to 29.9 in adult Take 1 capsule (15 mg) by mouth before breakfast. 30 capsule 2 11/05/19 25 025 Discontinued Active Problems Problem Noted Date Diagnosed Date Hypersomnia 01/24/2025 Assessment & Plan (01/24/2025 3:53 PM EDT): Sleep study is ordered today Other specified problems rel ated to psychosocial circumstances 11/29/2024 Primary insomnia 11/04/2024 Assessment & Plan (11/04/2024 1:06 PM EDT): Sleep hygiene counseling done Overweight with body mass in dex (BMI) of 29 to 29.9 in adult 11/04/2024 Assessment & Plan (01/24/2025 3:52 PM EDT): Extensive counseling about healthy diet and exercise on today I will increase phentermine dose to 37.5 mg daily RTC 4 to 6 weeks in person Assessment & Plan (11/04/2024 1:05 PM EDT): Today extensive discussion was done about life style modifications I advise healthy diet (low calorie) and cardiovascular exercise I decided today to start patient on phentermine, side effects of medication where discuss Fibromyalgia 11/04/2024 Assessment & Plan (01/24/2025 3:55 PM EDT): Patient was educated about multidisciplinary approach for her condition, it was advise cardiovascular exercise, maintain hydration, treat anxiety/depression and take medications as directed I advised to bring all her medications for next appointment Assessment & Plan (11/04/2024 1:05 PM EDT): Patient was educated about multidisciplinary approach for her condition, it was advise cardiovascular exercise, maintain hydration, treat anxiety/depression and take medications as directed Acute right ankle pain 11/04/2024 GILBERT (generalized anxiety disorder) 09/20/2024 Assessment & Plan (01/24/2025 3:55 PM EDT): Counseling done I will inquire if patient has been contacted with a therapist I advised to bring all her medication for next appointment to review them Assessment & Plan (11/04/2024 1:05 PM EDT): [...] Not taking medication and open to start services to help decrease sxs. Pt feels [...] XRAY ordered patient will be contacted with [facility] 02/16/2024 Viral upper respiratory infection 12/23/2023 Assessment [...] organization. Date Type Department Care Team Description 01/31/[address] [address] Irene Gallardo MD Chart Prep 01/31/[address] [address] Irene Gallardo MD Nurse Triage 01/24/2025 3:30 PM EDT Telemedicine [address] [address] Irene Gallardo MD Fibromyalgia (Primary Dx); Dietary counseling; Exercise counseling; Overweight with body mass index (BMI) of 29 to 29.9 in adult; Hypersomnia; GILBERT (generalized anxiety disorder) 01/24/2025 Travel 11/12/2024 Orders Only [address] [address] Irene Gallardo MD Primary insomnia (Primary Dx) 11/12/2024 Orders Only [address] [address] Irene Gallardo MD Primary insomnia (Primary Dx) 11/11/[address] [address] Irene Gallardo MD Medication Question 11/04/2024 10:45 AM EDT Office Visit [address] [address] Irene Gallardo MD Screening for colon cancer (Primary Dx); Anxiety; Fibromyalgia; Primary insomnia; Acute right ankle pain; Overweight with body mass index (BMI) of 29 to 29.9 in adult 11/04/2024 Travel 11/03/2024 Telephone [facility] MEDICINE [address] [place], [place] [phone] Irene Gallardo MD Chart Prep 11/01/2024 Orders Only [facility] External Provider, [facility] from Last 3 Months Immunizations Immunization Administration Dates Next Due HepB-CpG 12/09/2019,06/07/2019 Influenza Injectable Quadriv alant Preservative Free IIV4 MDCK 06/06/2020 Influenza injectable quadriv alent IIV4 with preservative 02/01/2019 Influenza, seasonal, injectable, preservative fr ee 02/16/2024 Moderna Covid-19 Vaccine 12+ 08/01/2020,07/05/19 21 Pfizer Covid-19 Vaccine 12+ 02/16/2024 Tdap [...] housing situation today? I have traeshamika carvalho 02/09/[address] you [...] 11/04/2024 11:02 AM EDT Plan of Treatment Upcoming Encounters Date Type Department Care Team (Late st Contact Info) Description 02/01/2025 11:00 AM EDT Office Visit [facility] MEDICINE [address] [place] [address] Irene Gallardo MD [address] [place] [address] 03/21/2025 2:00 PM EST Office Visit [facility] OPTOMETRY [address] [place] [address] Danae Zavala, OD [address] [place] [address] 03/29/2025 3:30 PM EST Office Visit [facility] MEDICINE [address] [place] [address] Irene Gallardo MD [address] [place] [address] Health Maintenance Due Date Last Done Comments [...] 06/06/2020, 02/01/2019 Mammogram 12/21/2024 12/22/2023, 12/12/2022, 03/05/2021 Depression Monitoring 06/03/2025 12/01/2024 , 12/01/2024 Disability Screening 11/04/2025 11/04/2024 Tobacco Screening 11/04/2025 11/04/2024 Alcohol/Substance Use Screening 01/24/2026 01/24/2025 SDOH Screening 01/24/2026 01/24/2025 DTaP/Tdap/Td Vaccines (2 - T d or [...] PM EDT Narrative 11/01/2024 4:23 PM EDT [place] [address] [address] Scan Report Signed Patient: Christi Welch MR#: [id number] : 1965 Acct:[id number] Age/Sex: 59 / F ADM Date: 11/01/24 Loc: HO.ED Attending Dr: Ordering Physician: Pretty Aleman CNP Date of Service: 11/01/24 Procedure(s): CT head/brain wo IV con Accession Number(s): [id number] cc: Irene Gallardo MD; Pretty Aleman [employer] Report Number: [id number]: Total DLP = 597.00 mGy-cm EXAMINATION: CT [...] MD 11/01/2024 04:19 PM EDT Dictated By: Aldo Brumfield MD Signed By: <Electronically signed by Aldo Brumfield MD in OV> 11/01/24 1619 DD/ 1558 TD/TT: 11/01/24 1615 Rail Detector Car Operator: Procedure Note Donotduketer, Image - 11/01/[address] [place] [address] [address] Scan Report Signed Patient: Christi WelchMR#: [id number] : 1965Acct:[id number] Age/Sex: 59 / FADM Date: 11/01/24 Loc: HO.ED Attending Dr: Ordering Physician: Pretty Aleman CNP Date of Service: 11/01/24 Procedure(s): CT head/brain wo IV con Accession Number(s): [id number] cc: Irene Gallardo MD; Pretty Aleman [facility] Report Number: [id number]: Total DLP = 597.00 mGy-cm EXAMINATION: CT [...] 11/01/24 1619 DD/ 1558 TD/TT: 11/01/24 1615 Rail Detector Car Operator: [facility] External Provider IMG CT PROCEDURES Final Result * XR Scapula Left (11/01/2024 2:56 PM EDT) Anatomical Region Laterality Modality Body, Scapula Left Radiographic Raysa ging 11/01/2024 2:56 PM EDT Narrative 11/01/2024 4:07 PM EDT [place] [address] XRay Report Signed Patient: Christi Welch MR#: [id number] : 1965 Acct:[id number] Age/Sex: 59 / F ADM Date: 11/01/24 Loc: HO.ED Attending Dr: Ordering Physician: Pretty Aleman [employer] Date of Service: 11/01/24 Procedure(s): XR scapula LT Accession Number(s): [id number] cc: Irene Gallardo MD; Pretty Aleman [employer] EXAMINATION: XR SCAPULA, LEFT CLINICAL INFORMATION: fall [...] OV> 11/01/24 1604 DD/ 1456 TD/TT: 11/01/24 1557 Rail Detector Car Operator: Procedure Note Donotuseinterpreter, Image - 11/01/[address] [address] XRay Report Signed Patient: Christi WelchMR#: [id number] : 1965Acct:[id number] Age/Sex: 59 / FADM Date: 11/01/24 Loc: HO.ED Attending Dr: Ordering Physician: Pretty Aleman CNP Date of Service: 11/01/24 Procedure(s): XR scapula LT Accession Number(s): [id number] cc: Irene Gallardo MD; Pretty Aleman [employer] EXAMINATION: XR SCAPULA, LEFT CLINICAL INFORMATION: fall 7/4, worsening pain COMPARISON: None available. TECHNIQUE: AP and scapular Y views of the left scapula. FINDINGS: The bones and soft tissues are normal. No scapular fracture. Glenohumeral and acromioclavicular alignment is normal. XR/XR scapula LT IMPRESSION: No acute findings left scapula. Electronically signed by: Aldo Brumfield MD 11/01/2024 04:04 PM EDT Dictated By: Aldo Brumfield MD Signed By: <Electronically signed by Aldo Brumfield MD in OV> 11/01/24 1604 DD/ 1456 TD/TT: 11/01/24 1557 Rail Detector Car Operator: [facility] External Provider IMG XR PROCEDURES Final Result * Hepatitis C Antibody with Reflex to HCV, RNA, Quantitative, Real-Time PCR (02/23/2024 9:10 AM EST) Hepatitis C Antibody Nonreactive Nonreactive [facility] Comment:Antibodies to HCV no t detected; does not exclude early acuteHCV infection. Blood Venous blood specimen / Unknown 02/23/2024 9:10 AM EST 02/23/2024 11:04 AM EST us Irene Ricardo MD LAB BLOOD ORDERABLES Final Result Performing Organization Address [facility] Co de Phone Number [facility] [address] [place] [phone] * HIV-1/2 Antigen and Antibodies, Fourth Generation, with Reflexes (02/23/2024 9:10 AM EST) HIV AB/AG Nonreactive Nonreactive [facility] Comment:HIV-1 p24 Ag and/or HIV-1/HIV-2 Ab not detected.A test result that is nonreactive does not exclude thepossibility of exposure to or infection with HIV-1 and/orHIV-2. Nonreactive results in this assay for individualswith prior exposure to HIV-1 and/or HIV-2 may be due toantigen and antibody levels that are below the limit ofdetection of this assay.The CapLinked HIV Ag/Ab Combo assay result andsupplemental assay results should be interpreted inconjunction with the patient's clinical presentation,history and other laboratory results. If the results areinconsistent with clinical evidence, additional testing issuggested to confirm the result. Blood Venous blood specimen / Unknown 02/23/2024 9:10 AM EST 02/23/2024 11:04 AM EST us Irene Ricardo MD LAB BLOOD ORDERABLES Final Result Performing Organization Address [facility] Co de Phone Number [facility] [address] [place] [phone] * BI Mammogram Screening Tomosynthesis Bilateral (12/22/2023 2:06 PM EDT) Anatomical Region Laterality Modality Breast Bilateral Mammography 12/22/2023 2:06 PM EDT Narrative 01/05/2024 5:56 PM EDT [facility] [address] [place] [address] Mammography Report Signed Patient: Christi Welch MR#: [id number] : 1965 Acct:[id number] Age/Sex: 58 / F ADM Date: 12/22/23 Loc: HO.MAMMO Attending Dr: Dima Pepper MD Ordering Physician: Dima Valentin MD Res ults: 2Benign Findings Date of Service: 12/22/23 Follow Up: 1 Year From Orig inal Mammogram Procedure(s): MM tomosynthesis screening BI Accession Number(s): [id number] cc: Irene Gallardo MD; Dima Valentin MD [...] by Shannon Young DO in OV> 01/05/24 1753 DD/ 1406 TD/TT: 12/22/23 1425 Rail Detector Car Operator: Procedure Note Donotbolivarinterpreter, Image - 01/05/2024 [facility] [address] [place], [place] [address] Mammography Report Signed Patient: Christi WelchMR#: [id number] : 1965Acct:[id number] Age/Sex: 58 / FADM Date: 12/22/23 Loc: HO.MAMMO Attending Dr: Dima Pepper MD Ordering Physician: Dima Valentin ults: 2Benign Findings Date of Service: 12/22/23Follow Up: 1 Year From Orig inal Mammogram Procedure(s): MM tomosynthesis screening BI Accession Number(s): [id number] cc: Irene Gallardo MD; Dima Valentin MD [...] by Shannon Young DO in OV> 01/05/24 1753 DD/ 1406 TD/TT: 12/22/23 1425 Rail Detector Car Operator: us Dima Pepper MD IMG BI PROCEDURES Final Result from Last 3 Months or Most Recently Relevant to Health Maintenance Insurance HSN PARTIAL [facility] 3 DENTAL - HSN PARTIAL (MEDICAID) Care Teams Sorting Machine Operator Relationship Specialty Start Date End Date Irene Gallardo MD [address] [place] [phone] PCP - General Internal Medicine 12/18/23
--- OUTSIDE RECORDS SUMMARY | 2025-01-31 19:22 | XMS_ITS | Encounter Summary ---
Author Organization [employer] Address [address] [facility] 7 [place] [address] Care Team Providers Care Cover Mat Machine Operator Name Role Phone Irene Gallardo MD Primary Care Provide r Reason for Visit * Reason Onset Date Comments Nurse Triage 01/31/2025 Encounter Details Date Type Department Care Team ([facility] st Contact Info) Description 01/31/2025 Telephone [facility] MEDICINE [address] [place] [address] Irene Gallardo MD [address] [place] [address] Nurse Triage Social History Tobacco Use Types Packs/Day [...] encounter Miscellaneous Notes * Telephone Encounter - Nelly Echevarria RN - 01/31/2025 9:26 AM EDT TC returned to pt. Pt. Reports L shoulder pain since morning. Reports no injury, woke up with the pain. Pt. Reports pain is made worse by moving arm and can not raise arm above head. Pt. Reports some weakness in the arm but can make a fist. Denies numbness or tingling. Pt. Reports pain is 10. Pt. Reports she has not tried any medications for pain at home but has ibuprofen at home. Pt. Agrees to trial ibuprofen 400mg q. 6 Hours prn and have appointment tomorrow 02/01/25 with PCP at 11am. Protocol Used: Shoulder Pain (Adult) Protocol-Based Disposition: Go to Office or Video Visit Now Override (Final) Disposition: See in Office or Video Visit Today or Tomorrow Override Reason: No appointments available Positive Triage Questions: * Severe pain (e.g., excruciating, unable to do any normal activities) * Weakness (i.e., loss of strength) in hand or fingers (Exception: Not truly weak; hand feels weak because of pain.) * All higher-acuity triage questions were negative Care Advice Discussed: * Pain Medicines * Telephone Encounter - Kiel Ramin - 01/31/2025 8:59 AM EDT Symptom: Shoulder Pain - Not From Injury Outcome: Schedule an appointment to be seen within 24 hours Reason: Caller denied all higher acuity questions Please contact pt at [phone]. (Mexican Speaker) documented in this encounter Plan of Treatment Upcoming Encounters Date Type Department Care Team (Late st Contact Info) Description 02/01/2025 11:00 AM EDT Office Visit [facility] MEDICINE [address] [place] [phone] Irene Gallardo MD [address] [place] [address] 03/21/2025 2:00 PM EST Office Visit [facility] OPTOMETRY [address] [place] [address] TarkaDanae, OD [address] [place] [address] 03/29/2025 3:30 PM EST Office Visit [facility] MEDICINE [address] [place] [address] Irene Gallardo MD [address] [place] [phone] documented as of this encounter Visit Diagnoses Not on filedocumented in this encounter Additional Health Concerns Assessment Noted Time PHQ-9 Depression Total Score: 16 025 11:07 AM EDT documented as of this encounter Care Teams Cover Mat Machine Operator Relationship Specialty Start Date End Date Irene Gallardo MD [address] [place] [phone] PCP - General Internal Medicine 12/18/23 documented as of this encounter
--- OUTSIDE RECORDS SUMMARY | 2025-01-31 19:22 | XMS_ITS | Encounter Summary ---
Author Organization [employer] Address [address] [place] [address] 7 [place] [address] Care Team Providers Care Granite Setter Name Role Phone Irene Gallardo MD Primary Care Provide r Reason for Referral * Consultation (Routine) - Closed Specialty Diagnoses / Procedures Referred By Contac t Referred To Contact Physical Therapy Diagnoses Localized osteoarthritis of right knee Xochilt Valenzuela MD [address] [place] [address] Phone: tel: fax: [facility] [address] [place] [address] Phone: tel: fax: Referral ID Status Reason Start Date Expiration Date V isits Requested Visits Authorized [id number] Closed Specialty Services Required 05/17/2024 05/17/2025 1 1 Encounter Details Date Type Department Care Team (Late st Contact Info) Description 05/17/2024 Orders Only [facility] MEDICINE [address] [place] [phone] Xochilt Valenzuela MD [address] [place] [address] [phone] Localized osteoarthritis of right knee (Primary Dx) Social History Tobacco Use Types Packs/Day Years Used Date Smoking Tobacco: Never Passive Smoke Exposure: Never Smokeless Tobacco: Never Alcohol Use Standard Drinks/Week Comments Never 0 (1 standard drink = 0.6 oz pur e alcohol) Depression Answer Date Recorded Patient Health Questionnaire-9 Score 0 02/16/2024 Patient Health Questionnaire-9 Score 0 02/16/2024 Last PHQ-9: Questionnaire Data Not on file 1 04/17/2023 Housing Stability Answer Date Recorded What is [...] Date Recorded Patient Health Questionnaire-2 Score 0 02/16/2024 Internet Access Answer Date Recorded Internet Access [...] Description 02/01/2025 11:00 AM EDT Office Visit [facility] MEDICINE [address] [place], [place] [phone] Irene Gallardo MD [address] [place] [address] 03/21/2025 2:00 PM EST Office Visit [facility] OPTOMETRY [address] [place], [place] [phone] Danae Zavala, OD [address] [place] [address] 03/29/2025 3:30 PM EST Office Visit [facility] MEDICINE [address] [place] [address] Irene Gallardo MD [address] [place] [phone] Scheduled Referrals Name Type Priority Associated Diagnoses Orde r Schedule Referral to Physical Therapy Outpatient Referral Routine Localized osteoarthritis of right knee Expected: 05/17/2024 (Approximate), Expires: 05/17/2025 documented as of this encounter Visit Diagnoses Diagnosis Localized osteoarthritis of right knee- Primary documented in this encounter Additional Health Concerns Assessment Noted Time PHQ-9 Depression Total Score: 0 02/16/20 24 10:37 AM EST documented as of this encounter Care Teams Granite Setter Relationship Specialty Start Date End Date Irene Gallardo MD [address] [place] [phone] PCP - General Internal Medicine 12/18/23 documented as of this encounter
--- OUTSIDE RECORDS SUMMARY | 2025-01-31 19:22 | XMS_ITS | Encounter Summary ---
Author Organization [employer] Address [address] [facility] 7t [place] [address] Care Team Providers Care Construction Project Administrator Name Role Phone Irene Gallardo MD Primary Care Provide r Encounter Details Date Type Department Care Team (Late Contact Info) Description 04/24/2022 Orders Only [facility] MEDICINE [address] [place] [phone] Dima Valentin MD [address] [place] [address] Pain in both hands (Primary Dx) Social History Tobacco Use Types [...] AM EDT Office Visit [facility] MEDICINE [address] [place] [address] Irene Gallardo MD [address] [place] [address] 03/21/2025 2:00 PM EST Office Visit [facility] OPTOMETRY [address] [place] [address] Danae Zavala, OD [address] [place] [address] 03/29/2025 3:30 PM EST Office Visit [facility] MEDICINE [address] [place] [phone] Irene Gallardo MD [address] [place] [address] documented as of this encounter Visit Diagnoses Diagnosis Pain in both hands- Primary documented in this encounter Additional Health Concerns Assessment Noted Time PHQ-9 Depression Total Score: 0 03/26/20 22 9:10 AM EST documented as of this encounter Care Teams Construction Project Administrator Relationship Specialty Start Date End Date Irene Gallardo MD [address] [place] [address] [phone] PCP - General Internal Medicine 12/18/23 documented as of this encounter
--- OUTSIDE RECORDS SUMMARY | 2025-01-31 19:22 | XMS_ITS | Encounter Summary ---
Author Organization [employer] Address [address] [facility] 7t [place] [address] Care Team Providers Care Home Advisor Name Role Phone Irene Gallardo MD Primary Care Provide r Encounter Details Date Type Department Care Team (Late st Contact Info) Description 02/27/2024 Orders Only [facility] P[facility]S [address] [place], [place] [phone] Dima Valentin MD [address] [place] [address] Social History Tobacco Use Types Packs/Day Years [...] Description 02/01/2025 11:00 AM EDT Office Visit [facility] MED[facility] [address] [place] [phone] Irene Gallardo MD [address] [place] [address] 03/21/2025 2:00 PM EST Office Visit [facility] OPTOMETRY [address] [place] [address] TarkaDanae, OD [address] [place] [address] 03/29/2025 3:30 PM EST Office Visit [facility] MED[facility]INE [address] [place] [phone] Irene Gallardo MD [address] [place] [address] documented as of this encounter Visit Diagnoses Not on filedocumented in this encounter Additional Health Concerns Assessment Noted Time PHQ-9 Depression Total Score: 0 02/16/20 24 10:37 AM EST documented as of this encounter Care Teams Home Advisor Relationship Specialty Start Date End Date Irene Gallardo MD [address] [place] [phone] PCP - General Internal Medicine 12/18/23 documented as of this encounter
--- OUTSIDE RECORDS SUMMARY | 2025-01-31 19:22 | XMS_ITS | Encounter Summary ---
Author Organization [employer] Address [address] [place] [address] 7 [place] [address] Care Team Providers Care Ditching Machine Operator Name Role Phone Irene Gallardo MD Primary Care Provide r Encounter Details Date Type Department Care Team (Latest Contact Info) Description 06/07/2021 Abstract [facility] CONVERSIONS Dental, Provider, DDS Social History [...] Description 02/01/2025 11:00 AM EDT Office Visit [facility] MEDICINE [address] [place] [address] Irene Gallardo MD [address] [place] [address] 03/21/2025 2:00 PM EST Office Visit [facility] OPTOMETRY [address] [place] [phone] Danae Zavala OD [address] [place] [address] 03/29/2025 3:30 PM EST Office Visit [facility] MEDICINE [address] [place] [address] Irene Gallardo MD [address] [place] [address] documented as of this encounter Visit Diagnoses Not on filedocumented in this encounter Care Teams Ditching Machine Operator Relationship Specialty Start Date End Date Irene Gallardo MD [address] [place], [place] [phone] PCP - General Internal Medicine 12/18/23 documented as of this encounter
== END 2025-01-31 15:09 | disposition home or self-care (01) ==
LOC: HO.MAMMO 15:08
PROVIDERS: PCP Internal Medicine; Visit Provider Internal Medicine
DX: Z12.31 Encounter for screening mammogram for malignant neoplasm of breast (principal)
CPT/HCPCS: 77063; 77067

== ENCOUNTER → 2025-01-31 15:15 | Outpatient (BNV) | payer OTHER, SELFPAY | PROVIDERS: PCP Internal Medicine; Visit Provider Internal Medicine | DX: Z12.31 Encounter for screening mammogram for malignant neoplasm of breast (principal) | CPT/HCPCS: 77063; 77067 ==

== ENCOUNTER 2025-02-01 11:47 | Outpatient (REF) | payer OTHER, SELFPAY ==
--- OUTSIDE RECORDS SUMMARY | 2025-02-01 11:00 | XMS_ITS | Encounter Summary ---
Author Organization [employer] Address [address] [place] [address] [facility] [place] [address] Care Team Providers Care Tc Operator Name Role Phone Irene Gallardo MD Primary Care Provide r Reason for Referral * Consultation (Routine) - Closed Specialty Diagnoses / Procedures Referred By Contac t Referred To Contact Physical Therapy Diagnoses Acute pain of left shoulder Irene Gallardo MD [address] [place] [phone] Phone: tel: fax: [facility] [place] [address] [place] [address] Phone: tel: fax: Referral ID Status Reason Start Date Expiration Date V isits Requested Visits Authorized [id number] Closed Specialty Services Required 02/01/2025 02/01/2026 1 1 Encounter Details Date Type Department Care Team (Late st Contact Info) Description 02/01/2025 11:00 AM EDT Office Visit [facility] [address] [place] [address] [phone] Irene Gallardo MD [address] [place] [address] [phone] Fibromyalgia (Primary Dx); Acute pain of left shoulder Social History Tobacco Use Types Packs/Day Years [...] AM EDT documented as of this encounter Last Filed Vital Signs Vital Sign Reading Time Taken Comments Blood Pressure 126/82 02/01/2025 11:14 AM EDT Pulse 78 02/01/2025 11:14 AM EDT Temperature 34.6 C (94.2 F) 02/01/2025 11:14 AM EDT Respiratory Rate 16 02/01/2025 11:14 AM EDT Oxygen Saturation 99% 02/01/2025 11:14 AM EDT Inhaled Oxygen Concentration - - Weight 67.3 kg (148 lb 6.4 oz) 02/01/2025 11:14 AM EDT Height 152.4 cm (5') 02/01/2025 11:14 AM EDT Body Mass Index 28.98 02/01/2025 11:14 AM EDT documented in this encounter Progress Notes * Irene Ricardo MD - 02/01/2025 11:00 AM EDT SUBJECTIVE: Christi Yo is a 59 y.o. year old female who presents for acute visit . Acute Concerns: Acute left shoulder pain for 10 days, onset in the week prior to February 01, 2025 - Pain worsened 3 days ago, severe enough to interrupt sleep and limit ability to lift arm - Reports inability to raise left arm above shoulder level, difficulty performing work tasks - Denies numbness or cramps in the affected arm - History of fibromyalgia with daily generalized body pain, fatigue, and variable severity; some days unable to get out of bed - Left shoulder X-ray performed previously - Recent fall reported - Mild relief of shoulder pain with ibuprofen, taken twice in the last 24 hours - Reports muscle relaxant causes drowsiness, only taken at home - Referred to orthopedics for left ankle due to recent discomfort Social History Social History Narrative Not on file Problem List[1] Chronic pain of left thumb Anxiety Hand pain Spasm Dental calculus Acute pain of left shoulder Arm pain, left Viral upper respiratory infection Colon cancer screening Chronic pain of right knee Health care maintenance Viral gastroenteritis GILBERT (generalized anxiety disorder) Primary insomnia Overweight with body mass index (BMI) of 29 to 29.9 in adult Fibromyalgia Acute right ankle pain Other specified problems related to psychosocial circumstances Hypersomnia Family History[2] Review of Systems Constitutional: Negative. HENT: Negative. Respiratory: Negative. Cardiovascular: Negative. OBJECTIVE: Vitals: 02/01/25 1114 BP: 126/82 BP Location: Left arm Patient Position: Sitting BP Cuff Size: Adult Pulse: 78 Resp: 16 Temp: 94.2 ??F (34.6 ??C) TempSrc: Temporal SpO2: 99% Weight: 148 lb 6.4 oz (67.3 kg) Height: 5' (1.524 m) Physical Exam Constitutional: Appearance: Normal appearance. Cardiovascular: Rate and Rhythm: Normal rate and regular rhythm. Pulmonary: Effort: Pulmonary effort is normal. Breath sounds: Normal breath sounds. Abdominal: General: Abdomen is flat. Palpations: Abdomen is soft. Musculoskeletal: Right shoulder: Normal. Left shoulder: Tenderness present. Decreased range of motion. Right lower leg: No edema. Left lower leg: No edema. Neurological: Mental Status: She is alert. Follow Up: No follow-ups on file. Medications Ordered Prior to Encounter[3] Problem List Items Addressed This Visit Acute pain of left shoulder Acute pain in the left shoulder, onset after recent fall, with limitation in range of motion. No associated numbness or cramps. Differential includes musculoskeletal injury; further evaluation pending imaging. - Ordered left shoulder X-ray to assess for underlying pathology. Prescribed Flexeril 10 mg every 8hours for muscle relaxation. Recommended alternating acetaminophen 500 mg every 8 hours and ibuprofen for pain control, with advice to use acetaminophen to minimize gastrointestinal side effects. Offered physical therapy for shoulder rehabilitation.. Referral to orthopedics for further evaluation of left shoulder if symptoms persist or imaging indicates. Will consider MRI based on X-ray results and clinical progression. - Risks and side effects: Discussed drowsiness as a side effect of muscle relaxant; advised to avoid driving or activities requiring concentration after taking Flexeril. Discussed gastrointestinal side effects of ibuprofen. Relevant Medications ketorolac (Toradol) injection 30 mg (Completed) cyclobenzaprine (Flexeril) 10 MG tablet acetaminophen (Tylenol Extra Strength) 500 MG tablet Other Relevant Orders XR Shoulder 2+ Views Left Referral to Physical Therapy Fibromyalgia - Primary Fibromyalgia confirmed as underlying cause of chronic widespread pain, fatigue, and variable symptom severity. - Provided educational materials regarding fibromyalgia. Recommended daily exercise as primary management strategy. Discussed that there is no curative medication, but symptom management is possible.Advised addressing comorbid anxiety and depression to improve overall condition. Referral to psychiatry for further management of mood symptoms. Relevant Medications ketorolac (Toradol) injection 30 mg (Completed) acetaminophen (Tylenol Extra Strength) 500 MG tablet [1] Patient Active Problem List Diagnosis Chronic pain of left thumb Anxiety Hand pain Spasm Dental calculus Acute pain of left shoulder Arm pain, left Viral upper respiratory infection Colon cancer screening Chronic pain of right knee Health care maintenance Viral gastroenteritis GILBERT (generalized anxiety disorder) Primary insomnia Overweight with body mass index (BMI) of 29 to 29.9 in adult Fibromyalgia Acute right ankle pain Other specified problems related to psychosocial circumstances Hypersomnia [2] Family History Problem Relation Name Age of Onset Diabetes Mother Hypertension Mother Hypertension Father Coronary artery disease Sister Diabetes Sister [3] Current Outpatient Medications on File Prior to Visit Medication Sig Dispense Refill cetirizine (ZyrTEC) 10 MG tablet Take 1 tablet by mouth 1 (one) time each day. cyclobenzaprine (Flexeril) 10 MG tablet Take 1 tablet (10 mg) by mouth at bedtime for 10 days. 10 tablet 0 Diclofenac Sodium (Voltaren) 1 % gel Apply topically every 8 (eight) hours. diclofenac sodium 3 % gel Apply topically 2 times daily. 100 g 0 doxepin (Silenor) 6 mg tablet tablet Take 1 tablet (6 mg) by mouth at bedtime. 30 tablet 2 DULoxetine (Cymbalta) [address] capsule Take 1 capsule (60 mg) by mouth Once per day. Do not crush or chew. 30 capsule 1 hydrOXYzine HCl (Atarax) 25 MG tablet Take 1 tablet (25 mg) by mouth if needed in the morning, at noon, and at bedtime for itching. 90 tablet 0 ibuprofen 200 MG tablet Take 2 tablets (400 mg) by mouth every 8 (eight) hours if needed for mild pain or moderate pain. 30 tablet 0 LORazepam (Ativan) 0.5 MG tablet Take one table 1-2 hors before the flight 4 tablet 0 melatonin 10 MG tablet 1 tab at bedtime omeprazole OTC (PriLOSEC OTC) 20 MG EC tablet Take 1 tablet (20 mg) by mouth before breakfast. Do not crush, chew, or split. 30 tablet 11 phentermine 37.5 MG capsule Take 1 capsule (37.5 mg) by mouth before breakfast. 30 capsule 0 sodium chloride ([place]) 0.65 % nasal spray 1-2 spray on each nostril every 2-3 hours as needed for nasal congestion zolpidem (Ambien) 5 MG tablet Take 1 tablet (5 mg) by mouth if needed at bedtime for sleep. 30 tablet 0 No current facility-administered medications on file prior to visit. documented in this encounter Miscellaneous Notes * Assessment & Plan Note - Irene Ricardo MD - 02/01/2025 1:28 PM EDT Associated Problem(s): Fibromyalgia Fibromyalgia confirmed as underlying cause of chronic widespread pain, fatigue, and variable symptom severity. - Provided educational materials regarding fibromyalgia. Recommended daily exercise as primary management strategy. Discussed that there is no curative medication, but symptom management is possible.Advised addressing comorbid anxiety and depression to improve overall condition. Referral to psychiatry for further management of mood symptoms. * Assessment & Plan Note - Irene Ricardo MD - 02/01/2025 1:27 PM EDT Associated Problem(s): Acute pain of left shoulder Acute pain in the left shoulder, onset after recent fall, with limitation in range of motion. No associated numbness or cramps. Differential includes musculoskeletal injury; further evaluation pending imaging. - Ordered left shoulder X-ray to assess for underlying pathology. Prescribed Flexeril 10 mg every 8hours for muscle relaxation. Recommended alternating acetaminophen 500 mg every 8 hours and ibuprofen for pain control, with advice to use acetaminophen to minimize gastrointestinal side effects. Offered physical therapy for shoulder rehabilitation.. Referral to orthopedics for further evaluation of left shoulder if symptoms persist or imaging indicates. Will consider MRI based on X-ray results and clinical progression. - Risks and side effects: Discussed drowsiness as a side effect of muscle relaxant; advised to avoid driving or activities requiring concentration after taking Flexeril. Discussed gastrointestinal side effects of ibuprofen. documented in this encounter Plan of Treatment Upcoming Encounters Date Type Department Care Team (Late st Contact Info) Description 03/21/2025 2:00 PM EST Office Visit [facility] [address] [place] [address] Danae Zavala, OD [address] [place] [address] 03/29/2025 3:30 PM EST Office Visit [facility] [address] [place] [address] Irene Gallardo MD [address] [place] [address] Scheduled Orders Name Type Priority Associated Diagnoses Orde r Schedule XR Shoulder 2+ Views Left Imaging Routine Acute pain of left shoulder Expected: 02/01/2025, Expires: 02/01/2026 Scheduled Referrals Name Type Priority Associated Diagnoses Orde r Schedule Referral to Physical Therapy Outpatient Referral Routine Acute pain of left shoulder Expected: 02/01/2025 (Approximate), Expires: 02/01/2026 documented as of this encounter Visit Diagnoses Diagnosis Fibromyalgia- Primary Unspecified myalgia and myositis Acute pain of left shoulder documented in this encounter Administered Medications Inactive Administered Medications - up to 3 most recent administrations Medication Order MAR Action Action Date Dose Rate Site ketorolac (Toradol) injection 30 mg 30 mg, Intramuscular, Once, On Fri02/01/25 at 1130, For 1 doseIndications:Acute pain of left shoulder Given 02/01/2025 11:30 AM EDT 30 mg Left Deltoid documented in this encounter Additional Health Concerns Assessment Noted Time PHQ-9 Depression Total Score: 16 025 11:07 AM EDT documented as of this encounter Care Teams Tc Operator Relationship Specialty Start Date End Date Irene Gallardo MD [address] [place] [address] PCP - General Internal Medicine 12/18/23 documented as of this encounter
--- OUTSIDE RECORDS SUMMARY | 2025-02-01 15:14 | XMS_ITS | Encounter Summary ---
Author Organization [employer] Address [address] [facility] 7t [place] [address] Care Team Providers Care Street Engineer Name Role Phone Irene Gallardo MD Primary Care Provide r Encounter Details Date Type Department Care Team (Late st Contact Info) Description 10/08/2023 Telephone [facility] [address] [place], [place] [phone] Dima Valentin MD [address] [place] [address] Social History Tobacco Use Types Packs/Day Years [...] Description 03/21/2025 2:00 PM EST Office Visit [facility] [address] [place], [place] [phone] Danae Zavala, OD [address] [place] [address] 03/29/2025 3:30 PM EST Office Visit [facility] [address] [place] [address] Irene Gallardo MD [address] [place] [address] documented as of this encounter Visit Diagnoses Not on filedocumented in this encounter Additional Health Concerns Assessment Noted Time PHQ-9 Depression Total Score: 0 03/26/20 22 9:10 AM EST documented as of this encounter Care Teams Street Engineer Relationship Specialty Start Date End Date Irene Gallardo MD [address] [place] [address] PCP - General Internal Medicine 12/18/23 documented as of this encounter
--- OUTSIDE RECORDS SUMMARY | 2025-02-01 15:14 | XMS_ITS | Encounter Summary ---
Author Organization [employer] Address [address] [facility] 7t [place] [address] Care Team Providers Care Office Chair Assembler Name Role Phone Irene Gallardo MD Primary Care Provide r Encounter Details Date Type Department Care Team (Latest Contact Info) Description 02/01/2025 Travel Social History Tobacco Use Types Packs/Day Years [...] Description 03/21/2025 2:00 PM EST Office Visit [facility] [address] [place], [place] [phone] Danae Zavala, OD [address] [place] [address] 03/29/2025 3:30 PM EST Office Visit [facility] [address] [place] [address] Irene Gallardo MD [address] [place] [address] documented as of this encounter Visit Diagnoses Not on filedocumented in this encounter Additional Health Concerns Assessment Noted Time PHQ-9 Depression Total Score: 16 025 11:07 AM EDT documented as of this encounter Care Teams Office Chair Assembler Relationship Specialty Start Date End Date Irene Gallardo MD [address] [place] [address] PCP - General Internal Medicine 12/18/23 documented as of this encounter
--- OUTSIDE RECORDS SUMMARY | 2025-02-01 15:14 | XMS_ITS | Encounter Summary ---
Author Organization [employer] Address [address] [place] [address] [address] [place] [address] Care Team Providers Care Neuropsychiatric Aide Name Role Phone Irene Gallardo MD Primary Care Provide r Encounter Details Date Type Department Care Team (Latest Contact Info) Description 06/07/2021 Abstract [facility] CON[facility] Dental, Provider, DDS Social History [...] Description 03/21/2025 2:00 PM EST Office Visit [facility] [address] [place] [address] Danae Zavala, OD [address] [place] [address] 03/29/2025 3:30 PM EST Office Visit [facility] [address] [place] [address] Irene Gallardo MD [address] [place] [address] documented as of this encounter Visit Diagnoses Not on filedocumented in this encounter Care Teams Neuropsychiatric Aide Relationship Specialty Start Date End Date Irene Gallardo MD [address] [place] [address] PCP - General Internal Medicine 12/18/23 documented as of this encounter
--- OUTSIDE RECORDS SUMMARY | 2025-02-01 15:14 | XMS_ITS | Encounter Summary ---
Author Organization [employer] Address [address] [place] [address] 7 [place] [address] Care Team Providers Care Raw Shellfish Preparer Name Role Phone Irene Gallardo MD Primary Care Provide r Reason for Referral * Consultation (Routine) - Closed Specialty Diagnoses / Procedures Referred By Contac t Referred To Contact Physical Therapy Diagnoses Localized osteoarthritis of right knee Xochilt Valenzuela MD [address] [place] [phone] Phone: tel: fax: [facility] [place] [address] [place] [address] Phone: tel: fax: Referral ID Status Reason Start Date Expiration Date V isits Requested Visits Authorized [id number] Closed Specialty Services Required 05/17/2024 05/17/2025 1 1 Encounter Details Date Type Department Care Team (Late st Contact Info) Description 05/17/2024 Orders Only [facility] [address] [place] [address] [phone] Xochilt Valenzuela MD [address] [place] [address] [phone] Localized osteoarthritis of right knee (Primary Dx) [...] Description 03/21/2025 2:00 PM EST Office Visit [facility] [address] [place] [address] Danae Zavala, OD [address] [place] [address] 03/29/2025 3:30 PM EST Office Visit [facility] [address] [place] [address] Irene Gallardo MD [address] [place] [address] Scheduled Referrals Name Type Priority Associated Diagnoses Orde r Schedule Referral to Physical Therapy Outpatient Referral Routine Localized osteoarthritis of right knee Expected: 05/17/2024 (Approximate), Expires: 05/17/2025 documented as of this encounter Visit Diagnoses Diagnosis Localized osteoarthritis of right knee- Primary documented in this encounter Additional Health Concerns Assessment Noted Time PHQ-9 Depression Total Score: 0 02/16/20 10:37 AM EST documented as of this encounter Care Teams Raw Shellfish Preparer Relationship Specialty Start Date End Date Irene Gallardo MD [address] [place] [address] PCP - General Internal Medicine 12/18/23 documented as of this encounter
--- OUTSIDE RECORDS SUMMARY | 2025-02-01 15:14 | XMS_ITS | Encounter Summary ---
Author Organization [employer] Address [address] [facility] 7 [place] [address] Care Team Providers Care Heat Curer Name Role Phone Irene Gallardo MD Primary Care Provide r Encounter Details Date Type Department Care Team (Late Contact Info) Description 04/22/2022 Telephone [facility] [address] [place] [address] Dima Valentin MD [address] [place] [address] Social History Tobacco Use Types Packs/Day Years [...] Department Care Team (Late Contact Info) Description 03/21/2025 2:00 PM EST Office Visit [facility] [address] [place], [place] [phone] Danae Zavala, OD [address] [place] [address] 03/29/2025 3:30 PM EST Office Visit [facility] [address] [place] [address] Irene Gallardo MD [address] [place], [place] [phone] documented as of this encounter Visit Diagnoses Not on filedocumented in this encounter Additional Health Concerns Assessment Noted Time PHQ-9 Depression Total Score: 0 03/26/20 22 9:10 AM EST documented as of this encounter Care Teams Heat Curer Relationship Specialty Start Date End Date Irene Gallardo MD [address] [place], [place] [phone] PCP - General Internal Medicine 12/18/23 documented as of this encounter
--- OUTSIDE RECORDS SUMMARY | 2025-02-01 15:14 | XMS_ITS | Encounter Summary ---
Author Organization [employer] Address [address] [facility] 7 [place] [address] Care Team Providers Care Millwright Helper Name Role Phone Irene Gallardo MD Primary Care Provide r Reason for Visit * Reason Onset Date Comments Nurse Triage 01/31/2025 Encounter Details Date Type Department Care Team ([facility] st Contact Info) Description 01/31/2025 Telephone [facility] MEDICINE [address] [place] [address] Irene Gallardo MD [address] [place] [address] Nurse Triage Social History Tobacco Use Types [...] Pain Medicines * Telephone Encounter - Kiel Faustin - 01/31/2025 8:59 AM EDT Symptom: Shoulder Pain - Not From Injury Outcome: Schedule an appointment to be seen within 24 hours Reason: Caller denied all higher acuity questions Please contact pt at [phone]. (Mosotho Speaker) documented in this encounter Plan of Treatment Upcoming Encounters Date Type Department Care Team (Late st Contact Info) Description 03/21/2025 2:00 PM EST Office Visit [facility] OPTOMETRY [address] [place] [address] Danae Zavala, OD [address] [place] [address] 03/29/2025 3:30 PM EST Office Visit [facility] MEDICINE [address] [place] [address] Irene Gallardo MD [address] [place] [address] documented as of this encounter Visit Diagnoses Not on filedocumented in this encounter Additional Health Concerns Assessment Noted Time PHQ-9 Depression Total Score: 16 025 11:07 AM EDT documented as of this encounter Care Teams Millwright Helper Relationship Specialty Start Date End Date Irene Gallardo MD [address] [place] [address] PCP - General Internal Medicine 12/18/23 documented as of this encounter
--- OUTSIDE RECORDS SUMMARY | 2025-02-01 15:14 | XMS_ITS | Clinical Summary ---
Author Organization [employer] Address 75 [facility] 7t [place] [address] Care Team Providers Care Aircraft Engine Installer Name Role Phone Irene Gallardo MD Primary [...] at bedtime 01/12/20 21 Active sodium chloride ([place]) 0.65 % nasal spray 1-2 spray on [...] breakfast. 30 capsule 01/25/20 25 025 Active cyclobenzaprin e (Flexeril) 10 MG tabletIndicati ons:Acute pain of left shoulder Take 1 tablet (10 mg) by mouth 3 times daily for 10 days. 30 tablet 02/02/20 25 025 Active acetaminophen (Tylenol Extra Strength) 500 MG tabletIndicati ons:Acute pain of left shoulder Take 2 tablets (1,000 mg) by mouth every 8 (eight) hours if needed for moderate pain for up to 10 days. 30 tablet 02/02/20 25 025 Active phentermine 15 MG capsuleIndicat ions:Overweigh t with body mass index (BMI) of 29 to 29.9 in adult Take 1 capsule (15 mg) by mouth before breakfast. 30 capsule 2 11/05/19 25 025 Discontinued Hospital, Clinic, or Other Facility Administered Medication Ordered Dose Route Frequency Start Date End Date Status ketorolac (Toradol) injection 30 mgIndications:Acute pain of left shoulder 30 mg IM Once 02/01/2025 02/01/2025 Ended Active Problems Problem Noted Date Diagnosed Date [...] where discuss Fibromyalgia 11/04/2024 Assessment & Plan (02/01/2025 1:30 PM EDT): Fibromyalgia confirmed as underlying cause of chronic widespread pain, fatigue, and variable symptom severity. - Provided educational materials regarding fibromyalgia. Recommended daily exercise as primary management strategy. Discussed that there is no curative medication, but symptom management is possible. Advised addressing comorbid anxiety and depression to improve overall condition. Referral to psychiatry for further management of mood symptoms. Assessment & Plan (01/24/2025 3:55 PM EDT): [...] XRAY ordered patient will be contacted with [facility] maintenance 02/16/2024 Viral upper respiratory infection 12/23/2023 Assessment & Plan (12/23/2023 1:23 PM EDT): No evidence of respiratory distress. Symptoms mild. Physical exam without acute concerns. -COVID, Flu and Strep negative. -No evidence of dehydration. -Supportive care advised. -Isolation recommendations discussed. -Given work/school note. -ER precautions discussed. -Seek medical attention for worsening symptoms. Acute pain of left shoulder 10/20/2023 Assessment & Plan (02/01/2025 1:27 PM EDT): Acute pain in the left shoulder, onset after recent fall, with limitation in range of motion. No associated numbness or cramps. Differential includes musculoskeletal injury; further evaluation pending imaging. - Ordered left shoulder X-ray to assess for underlying pathology. Prescribed Flexeril 10 mg every 8 hours for muscle relaxation. Recommended alternating acetaminophen 500 [...] Flexeril. Discussed gastrointestinal side effects of ibuprofen. Arm pain, left 10/20/2023 Dental calculus 07/01/2023 [...] organization. Date Type Department Care Team Description 02/01/2025 11:00 AM EDT Office Visit [address] [address] Irene Gallardo MD Fibromyalgia (Primary Dx); Acute pain of left shoulder 02/01/2025 Travel 01/31/2025 Orders Only [address] [address] Irene Gallardo MD 01/31/[address] [address] Irene Gallardo MD Chart Prep 01/31/[address] [address] Irene Gallardo MD Nurse Triage 01/24/2025 3:30 PM EDT Telemedicine [address] [address] Irene Gallardo MD Fibromyalgia (Primary Dx); Dietary counseling; Exercise counseling; Overweight with body mass index (BMI) of 29 to 29.9 in adult; Hypersomnia; GILBERT (generalized anxiety disorder) 01/24/2025 Travel 11/12/2024 Orders Only [address] [address] Irene Gallardo MD Primary insomnia (Primary Dx) 11/12/2024 Orders Only [address] [address] Irene Gallardo MD Primary insomnia (Primary Dx) 11/11/[address] [address] Irene Gallardo MD Medication Question 11/04/2024 10:45 AM EDT Office Visit [facility] MEDICINE [address] [place] [address] Irene Gallardo MD Screening for colon cancer (Primary Dx); Anxiety; Fibromyalgia; Primary insomnia; Acute right ankle pain; Overweight with body mass index (BMI) of 29 to 29.9 in adult 11/04/2024 Travel 11/03/2024 Telephone [facility] MEDICINE [address] [place] [address] Irene Gallardo MD Chart Prep 11/01/2024 Orders Only [facility] External Provider, [facility] from Last 3 Months Immunizations Immunization Administration [...] Mass Index 28.98 02/01/2025 11:14 AM EDT Plan of Treatment Upcoming Encounters Date Type Department Care Team (Late st Contact Info) Description 03/21/2025 2:00 PM EST Office Visit [facility] OPTOMETRY [address] [place] [address] Danae Zavala, OD [address] [place] [address] 03/29/2025 3:30 PM EST Office Visit [facility] MEDICINE [address] [place] [address] Irene Gallardo MD [address] [place] [address] Health Maintenance Due Date Last Done Comments CT Colonography 1965 Colonoscopy 1965 Colorectal Cancer Screening 1965 FIT DNA/Cologuard 1965 FIT 1965 FOBT 1965 Sigmoidoscopy 1965 Pneumococcal Vaccine: 50+ Years (1 of 1 - PCV) 2014 Dental Oral Exam 01/02/2024 07/01/2023, 08/01/2022 Dental Prophylaxis 01/02/2024 07/01/2023, 08/01/2022 Dental X-Ray: Full Mouth 06/06/2024 06/05/2021 Dental X-Ray: Bitewings 07/01/2024 07/01/2023, 08/01 Influenza Vaccine (#1) 2024 , 06/06/2020, 02/01/2019 Depression Monitoring 06/03/2025 12/01/2024, 025 Disability Screening 11/04/2025 11/04/2024 Alcohol/Substance Use Screening 01/24/2026 01/24/2025 SDOH Screening 01/24/2026 01/24/2025 Mammogram 01/31/2026 01/31/2025, 09/0 12/2023, 12/12/2022, Additional history exists Tobacco Screening 02/01/2026 02/01/2025 DTaP/Tdap/Td Vaccines (2 - Td or Tdap) 06/01/2029 06/01/2019 RSV Patients and Patients Aged 60 years or older (1 - 1-dose 75+ series) 2039 Hepatitis B Vaccines Completed 12/09/2019, 06/07/19 Zoster Vaccines Completed 12/09/2019, 06/01/2019 COVID-19 Vaccine Completed 02/16/2024, , 07/04/2020 HIV Screening Completed 02/23/2024, 06/08/2020 Hepatitis [...] Procedure Name Priority Date/Time Associated Diagnosis Comments BI MAMMOGRAM SCREENING TOMOSYNTHESIS BILATERAL Routine 01/31/2025 3:[address] HEAD WO CONTRAST Routine 11/01/2024 3 :58 PM EDT XR SCAPULA LEFT Routine 11/01/2024 2:56 PM EDT HEPATITIS C AB W/REFL TO HCV RNA, QN, PCR Routine 02/23/2024 9:10 AM EST Health care maintenance HIV 1/2 ANTIGEN/ANTIBODY, FOURTH GENERATION W/RFL Routine 02/23/2024 9:10 AM EST Health care maintenance Full PROPHYLAXIS - ADULT Routine 07/01/2023 8:00 AM EDT Dental calculus BITEWINGS - 4 RADIOGRAPHIC IMAGES Routine 07/01/2023 8:00 AM EDT Dental calculus PERIODIC ORAL EVALUATION - ESTABLISHED PATIENT Routine 07/01/2023 8:00 AM EDT from Last 3 Months or Most Recently Relevant to Health Maintenance Results * BI Mammogram Screening Tomosynthesis Bilateral (01/31/2025 3:15 PM EDT) Anatomical Region Laterality Modality Breast Bilateral Mammography 01/31/2025 3:15 PM EDT Narrative 02/01/2025 12:58 PM EDT [facility]'[address] [place] [address] Mammography Report Signed Patient: Christi Welch MR#: [id number] : 1965 Acct:[id number] Age/Sex: 59 / F ADM Date: 01/31/25 Loc: HO.MAMMO Attending Dr: Irene Ricardo MD Ordering Physician: Irene Gallardo MD Results: 2Benign Date of Service: 01/31/25 Follow Up: 1 Year From Orig ina Mammogram Procedure(s): MM tomosynthesis screening BI Accession Number(s): [id number] cc: Irene Gallardo MD Reason For Exam: SCREENING EXAMINATION: MM SCREENING DIGITAL BREAST TOMOSYNTHESIS, BILATERAL CLINICAL INFORMATION: Screening. Asymptomatic. COMPARISON: Mammography: Comparison is made with available priors TECHNIQUE: Digital breast mammography with tomosynthesis is performed in both the craniocaudal and mediolateral oblique views along with computer-aided detection (CAD). FINDINGS: There are scattered areas of fibroglandular density. Bilateral circumscribed oval masses which wax and wane consistent with benign fibrocystic changes. There are no significant masses, abnormal calcifications, or other abnormalities. MM/MM tomosynthesis screening BI IMPRESSION: No mammographic evidence of malignancy. ASSESSMENT: BI-RADS Category 2: Benign RECOMMENDATION: Routine annual mammography screening. 1 year F/U This examination should not preclude the clinical evaluation of a suspicious palpable abnormality. This patient's information was entered into a reminder system with a target due date for their next mammogram. Electronically signed by: Shannon Young DO 02/01/2025 12:55 PM EDT Dictated By: Shannon Young DO Signed By: <Electronically signed by Shannon Young DO in OV> 02/01/25 1255 DD/ 1515 TD/TT: 01/31/25 1535 Ux Developer: Procedure Note Donotuseinterpreter, Image - 02/01/2025 [facility] [address] [place] [address] [place] [address] Mammography Report Signed Patient: Christi WelchMR#: [id number] : 1965Acct:[id number] Age/Sex: 59 / FADM Date: 01/31/25 Loc: HO.MAMMO Attending Dr: Irene Ricardo MD Ordering Physician: Irene Gallardo MDResults: 2Benign Date of Service: 01/31/25Follow Up: 1 Year From Orig inal Mammogram Procedure(s): MM tomosynthesis screening BI Accession Number(s): [id number] cc: Irene Gallardo MD Reason For Exam: SCREENING EXAMINATION: MM SCREENING DIGITAL BREAST TOMOSYNTHESIS, BILATERAL CLINICAL INFORMATION: Screening. Asymptomatic. COMPARISON: Mammography: Comparison is made with available priors TECHNIQUE: Digital breast mammography with tomosynthesis is performed in both the craniocaudal and mediolateral oblique views along with computer-aided detection (CAD). FINDINGS: There are scattered areas of fibroglandular density. Bilateral circumscribed oval masses which wax and wane consistent with benign fibrocystic changes. There are no significant masses, abnormal calcifications, or other abnormalities. MM/MM tomosynthesis screening BI IMPRESSION: No mammographic evidence of malignancy. ASSESSMENT: BI-RADS Category 2: Benign RECOMMENDATION: Routine annual mammography screening. 1 year F/U This examination should not preclude the clinical evaluation of a suspicious palpable abnormality. This patient's information was entered into a reminder system with a target due date for their next mammogram. Electronically signed by: Shannon Young DO 02/01/2025 12:55 PM EDT Dictated By: Shannon Young DO Signed By: <Electronically signed by Shannon Young DO in OV> 02/01/25 1255 DD/ 1515 TD/TT: 01/31/25 1535 Ux Developer: Irene Ricardo MD IMG BI PROCEDURES Yayo jarett Result - Final * CT Head w/o Contrast (11/01/2024 3:58 PM EDT) Anatomical Region Laterality Modality Head, Neck Computed Tomogra phy 11/01/2024 3:58 PM EDT Narrative 11/01/2024 4:23 PM EDT [address] [address] [address] Scan Report Signed Patient: Christi Welch MR#: [id number] : 1965 Acct:[id number] Age/Sex: 59 / F ADM Date: 11/01/24 Loc: HO.ED Attending Dr: Ordering Physician: Pretty Aleman CNP Date of Service: 11/01/24 Procedure(s): CT head/brain wo IV con Accession Number(s): [id number] cc: Irene Gallardo MD; Pretty Aleman HERBICIDE SPRAYER Report Number: [id number]: Total DLP = 597.00 mGy-cm EXAMINATION: CT [...] 11/01/24 1619 DD/ 1558 TD/TT: 11/01/24 1615 Ux Developer: Procedure Note Donotuseinterpreter, Image - 11/01/[address] [place] [address] [address] Scan Report Signed Patient: Christi WelchMR#: [id number] : 1965Acct:[id number] Age/Sex: 59 / FADM Date: 11/01/24 Loc: HO.ED Attending Dr: Ordering Physician: Pretty Aleman CNP Date of Service: 11/01/24 Procedure(s): CT head/brain wo IV con Accession Number(s): [id number] cc: Irene Gallardo MD; Pretty Aleman HERBICIDE SPRAYER Report Number: [id number]: Total DLP = 597.00 mGy-cm EXAMINATION: CT [...] 11/01/24 1619 DD/ 1558 TD/TT: 11/01/24 1615 Ux Developer: [facility] External Provider IMG CT PROCEDURES Final Result * XR Scapula Left (11/01/2024 2:56 PM EDT) Anatomical Region Laterality Modality Body, Scapula Left Radiographic Raysa ging 11/01/2024 2:56 PM EDT Narrative 11/01/2024 4:07 PM EDT [place] [address] XRay Report Signed Patient: Christi Welch MR#: [id number] : 1965 Acct:[id number] Age/Sex: 59 / F ADM Date: 11/01/24 Loc: HO.ED Attending Dr: Ordering Physician: Pretty Aleman HERBICIDE SPRAYER Date of Service: 11/01/24 Procedure(s): XR scapula LT Accession Number(s): [id number] cc: Irene Gallardo MD; Pretty Aleman HERBICIDE SPRAYER EXAMINATION: XR SCAPULA, LEFT CLINICAL INFORMATION: fall [...] 11/01/24 1604 DD/ 1456 TD/TT: 11/01/24 1557 Ux Developer: Procedure Note Martir, Image - 11/01/2024 [place] [address] XRay Report Signed Patient: Christi WelchMR#: [id number] : 1965Acct:[id number] Age/Sex: 59 / FADM Date: 11/01/24 Loc: HO.ED Attending Dr: Ordering Physician: Pretty Aleman CNP Date of Service: 11/01/24 Procedure(s): XR scapula LT Accession Number(s): [id number] cc: Irene Gallardo MD; Pretty Aleman HERBICIDE SPRAYER EXAMINATION: XR SCAPULA, LEFT CLINICAL INFORMATION: fall 10/15, worsening pain COMPARISON: None available. TECHNIQUE: AP [...] 11/01/24 1604 DD/ 1456 TD/TT: 11/01/24 1557 Ux Developer: [facility] External Provider IMG XR PROCEDURES Final Result * Hepatitis C Antibody with Reflex to HCV, RNA, Quantitative, Real-Time PCR (02/23/2024 9:10 AM EST) Hepatitis C Antibody Nonreactive Nonreactive [facility] Comment:Antibodies to HCV no t detected; does not exclude early acuteHCV infection. Blood Venous blood specimen / Unknown 02/23/2024 9:10 AM EST 02/23/2024 11:04 AM EST us Irene Ricardo MD LAB BLOOD ORDERABLES Final Result Performing Organization Address [facility] Co de Phone Number [facility] [address] [place] [address] [phone] * HIV-1/2 Antigen and Antibodies, Fourth Generation, with Reflexes (02/23/2024 9:10 AM EST) [facility] HIV AB/AG Nonreactive Nonreactive [facility] Comment:HIV-1 p24 Ag and/or HIV-1/HIV-2 Ab not detected.A test result that is nonreactive does not exclude thepossibility of exposure to or infection with HIV-1 and/orHIV-2. Nonreactive results in this assay for individualswith prior exposure to HIV-1 and/or HIV-2 may be due toantigen and antibody levels that are below the limit ofdetection of this assay.The [email or web address] HIV Ag/Ab Combo assay result andsupplemental assay results should be interpreted inconjunction with the patient's clinical presentation,history and other laboratory results. If the results areinconsistent with clinical evidence, additional testing issuggested to confirm the result. Blood Venous blood specimen / Unknown 02/23/2024 9:10 AM EST 02/23/2024 11:04 AM EST us Irene Ricardo MD LAB BLOOD ORDERABLES Final Result Performing Organization Address [facility]/ZIP Co de Phone Number [facility] [address] [place] [address] [phone] from Last 3 Months or Most Recently Relevant to Health Maintenance Insurance [facility] [facility] 3 Care Teams Aircraft Engine Installer Relationship Specialty Start Date End Date Irene Gallardo MD [address] [place] [address] PCP - General Internal Medicine 12/18/23
--- OUTSIDE RECORDS SUMMARY | 2025-02-01 15:14 | XMS_ITS | Encounter Summary ---
Author Organization [employer] Address [address] [facility] 7 [place] [address] Care Team Providers Care Student Officer Name Role Phone Irene Gallardo MD Primary Care Provide r Reason for Visit * Reason Onset Date Comments Triage 07/31/2022 Encounter Details Date Type Department Care Team ([facility] st Contact Info) Description 07/31/2022 Telephone [facility] [address] [place] [address] Dima Valentin MD [address] [place] [address] Triage Social History Tobacco Use Types Packs/Day [...] The caller accepted this outcome Patient speaks Belarusian. documented in this encounter Plan of Treatment Upcoming Encounters Date Type Department Care Team (Late st Contact Info) Description 03/21/2025 2:00 PM EST Office Visit [facility] OPTOMETRY [address] [place], [place] [phone] Tarcriss Danae, OD [address] [place] [address] 03/29/2025 3:30 PM EST Office Visit [facility] MEDICINE [address] [place] [address] Irene Gallardo MD [address] [place] [address] documented as of this encounter Visit Diagnoses Not on filedocumented in this encounter Additional Health Concerns Assessment Noted Time PHQ-9 Depression Total Score: 0 03/26/20 22 9:10 AM EST documented as of this encounter Care Teams Student Officer Relationship Specialty Start Date End Date Irene Gallardo MD [address] [place] [phone] PCP - General Internal Medicine 12/18/23 documented as of this encounter
--- OUTSIDE RECORDS SUMMARY | 2025-02-01 15:14 | XMS_ITS | Encounter Summary ---
Author Organization [employer] Address 75 [facility] 7 [place] [address] Care Team Providers Care Machine Staker Name Role Phone Irene Gallardo MD Primary Care Provide r Reason for Visit * Reason Onset Date Comments Chart Prep 01/31/2025 Encounter Details Date Type Department Care Team ([facility] Contact Info) Description 01/31/2025 Telephone [facility] MEDICINE [address] [place] [address] Irene Gallardo MD [address] [place] [address] Chart Prep Social History Tobacco Use Types [...] Description 03/21/2025 2:00 PM EST Office Visit [facility] OPTOMETRY [address] [place] [address] Danae Zavala, OD [address] [place] [address] 03/29/2025 3:30 PM EST Office Visit [facility] MEDICINE [address] [place] [address] Irene Gallardo MD [address] [place] [address] documented as of this encounter Visit Diagnoses Not on filedocumented in this encounter Additional Health Concerns Assessment Noted Time PHQ-9 Depression Total Score: 16 025 11:07 AM EDT documented as of this encounter Care Teams Machine Staker Relationship Specialty Start Date End Date Irene Gallardo MD [address] [place] [address] PCP - General Internal Medicine 12/18/23 documented as of this encounter
--- OUTSIDE RECORDS SUMMARY | 2025-02-01 15:14 | XMS_ITS | Encounter Summary ---
Author Organization [employer] Address 75 [facility] 7t [place] [address] Care Team Providers Care Dsp Engineer Name Role Phone Irene Gallardo MD Primary Care Provide r Encounter Details Date Type Department Care Team ([facility] st Contact Info) Description 01/31/2025 Orders Only [facility] MEDICINE [address] [place] [address] Irene Gallardo MD [address] [place] [address] Social History Tobacco Use Types Packs/Day Years [...] 2:00 PM EST Office Visit [facility] OPTOMETRY [address] [place] [address] Danae Zavala, OD [address] [place] [address] 03/29/2025 3:30 PM EST Office Visit [facility] MEDICINE [address] [place] [address] Irene Gallardo MD [address] [place] [address] documented as of this encounter Procedures Procedure Name Priority Date/Time Associated Diagnosis Comments BI MAMMOGRAM SCREENING TOMOSYNTHESIS BILATERAL Routine 01/31/2025 3:15 PM EDT documented in this encounter Results * BI Mammogram Screening Tomosynthesis Bilateral (01/31/2025 3:15 PM EDT) Anatomical Region Laterality Modality Breast Bilateral Mammography 01/31/2025 3:15 PM EDT Narrative 02/01/2025 12:58 PM EDT [facility]'[address] [place] [address] Mammography Report Signed Patient: Christi Welch MR#: [id number] : 1965 Acct:[id number] Age/Sex: 59 / F ADM Date: 01/31/25 Loc: HO.MAMMO Attending Dr: Irene Ricardo MD Ordering Physician: Irene Gallardo MD Results: 2Benign Date of Service: 01/31/25 Follow Up: 1 Year From Orig inal Mammogram Procedure(s): MM tomosynthesis screening BI Accession Number(s): [id number] cc: Irene Gallardo MD Reason For Exam: [...] 02/01/25 1255 DD/ 1515 TD/TT: 01/31/25 1535 Chain Builder Loom Control: Procedure Note Donotuseinterpreter, Image - 02/01/2025 [facility] [address] [place], [place] [address] Mammography Report Signed Patient: Christi WelchMR#: [id number] : 1965Acct:[id number] Age/Sex: 59 / FADM Date: 01/31/25 Loc: HO.MAMMO Attending Dr: Irene Ricardo MD Ordering Physician: Irene Gallardo MDResults: 2Benign Date of Service: 01/31/25Follow Up: 1 Year From Orig ina Mammogram Procedure(s): MM tomosynthesis screening BI Accession Number(s): [id number] cc: Irene Gallardo MD Reason For Exam: [...] 02/01/25 1255 DD/ 1515 TD/TT: 01/31/25 1535 Chain Builder Loom Control: us Irene Ricardo MD IMG BI PROCEDURES Yayo jarett Result - Final documented in this encounter Visit Diagnoses Not on filedocumented in this encounter Additional Health Concerns Assessment Noted Time PHQ-9 Depression Total Score: 16 12/01/ 025 11:07 AM EDT documented as of this encounter Care Teams Dsp Engineer Relationship Specialty Start Date End Date Irene Gallardo MD [address] [place] [address] PCP - General Internal Medicine 12/18/23 documented as of this encounter
--- OUTSIDE RECORDS SUMMARY | 2025-02-01 15:14 | XMS_ITS | Encounter Summary ---
Author Organization [employer] Address 75 [facility] 7t [place] [address] Care Team Providers Care Tub Wash Operator Name Role Phone Irene Gallardo MD Primary Care Provide r Encounter Details Date Type Department Care Team (Late st Contact Info) Description 02/27/2024 Orders Only [facility] CHC MED & PEDS [address] [place], [place] [phone] Dima Valentin MD 505 [place] [address] Social History Tobacco Use Types Packs/Day Years [...] Description 03/21/2025 2:00 PM EST Office Visit [facility] OPTOMETRY [address] [place] [address] Danae Zavala, OD 267 [place] [address] 03/29/2025 3:30 PM EST Office Visit [facility] MEDICINE 230 [place] [address] Irene Gallardo MD 230 [place] [address] documented as of this encounter Visit Diagnoses Not on filedocumented in this encounter Additional Health Concerns Assessment Noted Time PHQ-9 Depression Total Score: 0 02/16/20 10:37 AM EST documented as of this encounter Care Teams Tub Wash Operator Relationship Specialty Start Date End Date Irene Gallardo MD [address] [place] [address] PCP - General Internal Medicine 12/18/23 documented as of this encounter
--- OUTSIDE RECORDS SUMMARY | 2025-02-01 15:14 | XMS_ITS | Encounter Summary ---
Author Organization [employer] Address 75 [facility] 7t [place] [address] Care Team Providers Care Patient Ambassador Name Role Phone Irene Gallardo MD Primary Care Provide r Encounter Details Date Type Department Care Team (Late Contact Info) Description 04/24/2022 Orders Only [facility] MEDICINE 230 [place] [address] Dima Valentin MD 505 [place] [address] Pain in both hands (Primary Dx) Social [...] EST Office Visit [facility] OPTOMETRY [address] [place], [place] [phone] Danae Zavala, OD 267 [place] [address] 03/29/2025 3:30 PM EST Office Visit [facility] MEDICINE 230 [place] [address] Irene Gallardo MD 230 [place], [place] [phone] documented as of this encounter Visit Diagnoses Diagnosis Pain in both hands- Primary documented in this encounter Additional Health Concerns Assessment Noted Time PHQ-9 Depression Total Score: 0 03/26/20 22 9:10 AM EST documented as of this encounter Care Teams Patient Ambassador Relationship Specialty Start Date End Date Irene Gallardo MD [address] [place] [phone] PCP - General Internal Medicine 12/18/23 documented as of this encounter
--- OUTSIDE RECORDS SUMMARY | 2025-02-01 15:14 | XMS_ITS | Encounter Summary ---
Author Organization [employer] Address [address] [place] [address] 7 [place] [address] Care Team Providers Care Animal Park Code Enforcement Officer Name Role Phone Irene Gallardo MD Primary Care Provide r Encounter Details Date Type Department Care Team (Latest Contact Info) Description 06/05/2020 Abstract [facility] CONVERSIONS Dental, Provider, DDS Social History [...] Description 03/21/2025 2:00 PM EST Office Visit [facility] OPTOMETRY 267 [place] [address] Danae Zavala, OD 267 [place] [address] 03/29/2025 3:30 PM EST Office Visit [facility] MEDICINE 230 [place] [address] Irene Gallardo MD 230 [place] [address] documented as of this encounter Visit Diagnoses Not on filedocumented in this encounter Care Teams Animal Park Code Enforcement Officer Relationship Specialty Start Date End Date Irene Gallardo MD 230 [place] [address] PCP - General Internal Medicine 12/18/23 documented as of this encounter
== END 2025-02-01 11:48 | disposition home or self-care (01) ==
LOC: HO.HHCX 11:47
PROVIDERS: PCP Internal Medicine; Visit Provider Internal Medicine
DX: Z13.89 Encounter for screening for other disorder (principal)

== ENCOUNTER 2025-02-02 15:00 | Outpatient (REF) | payer OTHER, SELFPAY ==
--- OUTSIDE RECORDS SUMMARY | 2025-02-01 11:00 | XMS_ITS | Encounter Summary ---
Author Organization [employer] Address [address] [place] [address] [facility] [place] [address] Care Team Providers Care Ticket Collector Or Usher Name Role Phone Irene Gallardo MD Primary Care Provide r Reason for Referral * Consultation (Routine) - Closed Specialty Diagnoses / Procedures Referred By Contac t Referred To Contact Physical Therapy Diagnoses Acute pain of left shoulder Irene Gallardo MD [address] [place] [phone] Phone: tel: fax: [facility] [place] Physical [place] [address] [place] [address] Phone: tel: fax: Referral ID Status Reason Start Date Expiration Date V isits Requested Visits Authorized [id number] Closed Specialty Services Required 02/01/2025 02/01/2026 1 1 Encounter Details Date Type Department Care Team (Late st Contact Info) Description 02/01/2025 11:00 AM EDT Office Visit [facility] [address] [place] [address] [phone] Irene Gallardo MD [address] [place] [address] [phone] Fibromyalgia (Primary Dx); Acute pain of left [...] before breakfast. 30 capsule 0 sodium chloride ([place]) 0.65 % nasal spray 1-2 spray on [...] Description 03/21/2025 2:00 PM EST Office Visit [facility] [address] [place] [address] Danae Zavala, OD [address] [place] [address] 03/29/2025 3:30 PM EST Office Visit [facility] [address] [place] [address] Irene Gallardo MD [address] [place] [address] Scheduled Referrals Name Type Priority Associated Diagnoses Orde r Schedule Referral to Physical Therapy Outpatient Referral Routine Acute pain of left shoulder Expected: 02/01/2025 (Approximate), Expires: 02/01/2026 documented as of this encounter Procedures Procedure Name Priority Date/Time Associated Diagnosis Comments XR SHOULDER 2+ VIEWS LEFT Routine 02/02/2025 3:15 PM EDT Acute pain of left shoulder documented in this encounter Results * XR Shoulder 2+ Views Left (02/02/2025 3:15 PM EDT) Anatomical Region Laterality Modality Upper Extremities, Shoulder Left Radi ographic Imaging 02/02/2025 3:15 PM EDT Narrative 02/02/2025 3:22 PM EDT [address] [address] XRay Report Signed Patient: Christi Welch MR#: [id number] : 1965 Acct:[id number] Age/Sex: 59 / F ADM Date: 02/02/25 Loc: .[facility] Attending Dr: Irene Ricardo MD Ordering Physician: Irene Gallardo MD Date of Service: 02/02/25 Procedure(s): XR shoulder LT min 2V Accession Number(s): [id number] cc: Irene Gallardo MD Reason for Exam: PAIN EXAMINATION: XR SHOULDER, LEFT CLINICAL INFORMATION: PAIN COMPARISON: None available. TECHNIQUE: Four views of the left shoulder. FINDINGS: Minimal acromioclavicular arthritis. Glenohumeral joint space is maintained. No visible acute fracture or dislocation. Mild sclerosis in the greater tuberosity, probably degenerative. No suspicious bony lesions otherwise seen. No abnormal soft tissue calcification. XR/XR shoulder LT min 2V IMPRESSION: No radiographic evidence of acute fracture. Electronically signed by: Ti Mendoza MD 02/02/2025 03:19 PM EDT Dictated By: Ti Mendoza MD Signed By: <Electronically signed by Ti Mendoza MD in OV> 02/02/25 1519 DD/ 14 TD/TT: 02/02/251515 [employer] Specialist: RISHI Procedure Note [place], Image - 02/02/[address] [address] XRay Report Signed Patient: Christi WelchMR#: [id number] : 1965Acct:[id number] Age/Sex: 59 / FADM Date: 02/02/25 [facility]: Irene Ricardo MD Ordering Physician: Irene Gallardo MD Date of Service: 02/02/25 Procedure(s): XR shoulder LT min 2V Accession Number(s): [id number] cc: Irene Gallardo MD Reason for Exam: PAIN EXAMINATION: XR SHOULDER, LEFT CLINICAL INFORMATION: PAIN COMPARISON: None available. TECHNIQUE: Four views of the left shoulder. FINDINGS: Minimal acromioclavicular arthritis. Glenohumeral joint space is maintained. No visible acute fracture or dislocation. Mild sclerosis in the greater tuberosity, probably degenerative. No suspicious bony lesions otherwise seen. No abnormal soft tissue calcification. XR/XR shoulder LT min 2V IMPRESSION: No radiographic evidence of acute fracture. Electronically signed by: Ti Mendoza MD 02/02/2025 03:19 PM EDT Dictated By: Ti Mendoaz MD Signed By: <Electronically signed by Ti Mendoza MD in OV> 02/02/25 151 DD/ 14 TD/TT: 02/02/251515 [employer] Specialist: RISHI Irene Ricardo MD IMG XR PROCEDURES Fin al Result documented in this encounter Visit Diagnoses Diagnosis Fibromyalgia- Primary [...] documented as of this encounter Care Teams Ticket Collector Or Usher Relationship Specialty Start Date End Date Irene Gallardo MD [address] [place] [address] PCP - General Internal Medicine 12/18/23 documented as of this encounter
--- NOTE | ~2025-02-02 | XR_ITS ---
EXAMINATION: XR SHOULDER, LEFT CLINICAL INFORMATION: PAIN COMPARISON: None available. TECHNIQUE: Four views of the left shoulder. FINDINGS: Minimal acromioclavicular arthritis. Glenohumeral joint space is maintained. No visible acute fracture or dislocation. Mild sclerosis in the greater tuberosity, probably degenerative. No suspicious bony lesions otherwise seen. No abnormal soft tissue calcification. XR/XR shoulder LT min 2V IMPRESSION: No radiographic evidence of acute fracture. Electronically signed by: Ti Mendoza MD 02/02/2025 03:19 PM EDT
--- OUTSIDE RECORDS SUMMARY | 2025-02-02 21:13 | XMS_ITS | Encounter Summary ---
Author Organization [employer] Address 75 [facility] 7t [place] [address] Care Team Providers Care Hangar Attendant Name Role Phone Irene Gallardo MD Primary Care Provide r Encounter Details Date Type Department Care Team ([facility] st Contact Info) Description 01/31/2025 Orders Only [facility] MEDICINE 230 [place] [address] Irene Gallardo MD 230 [place] [address] Social History Tobacco Use Types Packs/Day Years [...] Description 03/21/2025 2:00 PM EST Office Visit [facility] OPTOMETRY 267 [place] [address] Danae Zavala, OD 267 [place] [address] 03/29/2025 3:30 PM EST Office Visit [facility] MEDICINE 230 [place] [address] Irene Gallardo MD 230 [place] [address] documented as of this encounter Procedures Procedure Name Priority Date/Time Associated Diagnosis Comments BI MAMMOGRAM SCREENING TOMOSYNTHESIS BILATERAL Routine 01/31/2025 3:15 PM EDT documented in this encounter Results * BI Mammogram Screening Tomosynthesis Bilateral (01/31/2025 3:15 PM EDT) Anatomical Region Laterality Modality Breast Bilateral Mammography 01/31/2025 3:15 PM EDT Narrative 02/01/2025 12:58 PM EDT [facility]'[address] [place] [address] Mammography Report Signed Patient: Christi Welch MR#: [id number] : 1965 Acct:[id number] Age/Sex: 59 / F ADM Date: 01/31/25 Loc: HO.MAMMO Attending Dr: Irene Ricardo MD Ordering Physician: Irene Gallardo MD Results: 2Benign Date of Service: 01/31/25 Follow Up: 1 Year From Orig inal Mammogram Procedure(s): MM tomosynthesis screening BI Accession Number(s): [id number] cc: Irene Gallardo MD Reason For Exam: [...] 02/01/25 1255 DD/ 1515 TD/TT: 01/31/25 1535 Supervisor Machine Setter: Procedure Note Donotuseinterpreter, Image - 02/01/2025 [facility] [address] [place], [place] [address] Mammography Report Signed Patient: Christi WelchMR#: [id number] : 1965Acct:[id number] Age/Sex: 59 / FADM Date: 01/31/25 Loc: HO.MAMMO Attending Dr: Irene Ricardo MD Ordering Physician: Irene Gallardo MDResults: 2Benign Date of Service: 01/31/25Follow Up: 1 Year From Orig ina Mammogram Procedure(s): MM tomosynthesis screening BI Accession Number(s): [id number] cc: Irene Gallardo MD Reason For Exam: [...] 02/01/25 1255 DD/ 1515 TD/TT: 01/31/25 1535 Supervisor Machine Setter: us Irene Ricardo MD IMG BI PROCEDURES Yayo jarett Result - Final documented in this encounter Visit Diagnoses Not on filedocumented in this encounter Additional Health Concerns Assessment Noted Time PHQ-9 Depression Total Score: 16 12/01/ 025 11:07 AM EDT documented as of this encounter Care Teams Hangar Attendant Relationship Specialty Start Date End Date Irene Gallardo MD 230 [place] [address] PCP - General Internal Medicine 12/18/23 documented as of this encounter
--- OUTSIDE RECORDS SUMMARY | 2025-02-02 21:13 | XMS_ITS | Clinical Summary ---
Author Organization [employer] Address 75 [facility] 7t [place] [address] Care Team Providers Care Direct Service Provider Name Role Phone Irene Gallardo MD Primary [...] at bedtime 01/12/20 21 Active sodium chloride (Alba) 0.65 % nasal spray 1-2 spray on [...] XRAY ordered patient will be contacted with [facility] maintenance 02/16/2024 Viral upper respiratory infection 12/23/2023 [...] Description 02/01/2025 11:00 AM EDT Office Visit [address] [address] Irene Gallardo MD Fibromyalgia (Primary Dx); Acute pain of left shoulder 02/01/2025 Travel 01/31/2025 Orders Only [address] [address] Irene Gallardo MD 01/31/[address] [address] Irene Gallardo MD Chart Prep 01/31/[address] [address] Irene Gallardo MD Nurse Triage 01/24/2025 3:30 PM EDT Telemedicine [address] [address] Irene Gallardo MD Fibromyalgia (Primary Dx); Dietary counseling; Exercise counseling; Overweight with body mass index (BMI) of 29 to 29.9 in adult; Hypersomnia; GILBERT (generalized anxiety disorder) 01/24/2025 Travel 11/12/2024 Orders Only [address] [address] Irene Gallardo MD Primary insomnia (Primary Dx) 11/12/2024 Orders Only [address] [address] Irene Gallardo MD Primary insomnia (Primary Dx) 11/11/[address] [address] Irene Gallardo MD Medication Question 11/04/2024 10:45 AM EDT Office Visit [facility] MEDICINE 230 [place] [address] Irene Gallardo MD Screening for colon cancer (Primary Dx); Anxiety; Fibromyalgia; Primary insomnia; Acute right ankle pain; Overweight with body mass index (BMI) of 29 to 29.9 in adult 11/04/2024 Travel 11/03/2024 Telephone [facility] MEDICINE 230 [place] [address] Irene Gallardo MD Chart Prep from Last 3 Months Immunizations Immunization Administration [...] Description 03/21/2025 2:00 PM EST Office Visit [facility] OPTOMETRY 267 [place] [address] Danae Zavala, OD 267 [place] [address] 03/29/2025 3:30 PM EST Office Visit [facility] MEDICINE 230 [place] [address] Irene Gallardo MD 230 [place] [address] Health Maintenance Due Date Last Done Comments [...] 2039 Hepatitis B Vaccines Completed 12/09/2019, 06/07/19 20 Zoster Vaccines Completed 12/09/2019, 06/01/2019 COVID-19 Vaccine [...] PM EDT Acute pain of left shoulder BI MAMMOGRAM SCREENING TOMOSYNTHESIS BILATERAL Routine 01/31/2025 3:15 PM EDT HEPATITIS C AB W/REFL TO [...] Recently Relevant to Health Maintenance Results * XR Shoulder 2+ Views Left (02/02/2025 3:15 PM EDT) Anatomical Region Laterality Modality Upper Extremities, Shoulder Left Radi ographic Imaging 02/02/2025 3:15 PM EDT Narrative 02/02/2025 3:22 PM EDT [address] [address] XRay Report Signed Patient: Christi Welch MR#: [id number] : 1965 Acct:[id number] Age/Sex: 59 / F ADM Date: 02/02/25 Loc: HO.LESLIEX Attending Dr: Irene Ricardo MD Ordering Physician: Irene Gallardo MD Date of Service: 02/02/25 Procedure(s): XR shoulder LT min 2V Accession Number(s): [id number] cc: Irene Gallardo MD Reason for Exam: [...] Ti Mendoza MD 02/02/2025 03:19 PM EDT RP Dictated By: Ti Mendoza MD Signed By: <Electronically signed by Ti Mendoza MD in OV> 02/02/25 1519 DD/ 1515 TD/TT: 02/02/25 1516 Software Design Manager: Procedure Note Donotuseinterpreter, Image - 02/02/[address] [address] XRay Report Signed Patient: Christi WelchMR#: [id number] : 1965Acct:[id number] Age/Sex: 59 / FADM Date: 02/02/25 [facility]: [facility]: Irene Ricardo MD Ordering Physician: Irene Gallardo MD Date of Service: 02/02/25 Procedure(s): XR shoulder LT min 2V Accession Number(s): [id number] cc: Irene Gallardo MD Reason for Exam: [...] Ti Mendoza MD 02/02/2025 03:19 PM EDT RP Dictated By: Ti Mendoza MD Signed By: <Electronically signed by Ti Mendoza MD in OV> 02/02/259 DD/ 14 TD/TT: 02/02/251515 Software Design Manager: RISHI Irene Ricardo MD IMG XR PROCEDURES Fin al Result * BI Mammogram Screening Tomosynthesis Bilateral (01/31/2025 3:15 PM EDT) Anatomical Region Laterality Modality Breast Bilateral Mammography 01/31/2025 3:15 PM EDT Narrative 02/01/2025 12:58 PM EDT [facility] [address] [place], [place] [address] Mammography Report Signed Patient: Christi Welch MR#: [id number] : 1965 Acct:[id number] Age/Sex: 59 / F ADM Date: 01/31/25 Loc: HO.MAMMO Attending Dr: Irene Ricardo MD Ordering Physician: Irene Gallardo MD Results: 2Benign Date of Service: 01/31/25 Follow Up: 1 Year From Orig inal Mammogram Procedure(s): MM tomosynthesis screening BI Accession Number(s): [id number] cc: Irene Gallardo MD Reason For Exam: [...] Shannon Young DO 02/01/2025 12:55 PM EDT RP Dictated By: Shannon Young DO Signed By: <Electronically signed by Shannon Young DO in OV> 02/01/25 1255 DD/ 1515 TD/TT: 01/31/25 1535 Software Design Manager: Procedure Note Donotuseinterpreter, Image - 02/01/2025 [facility] [address] [place] [address] Mammography Report Signed Patient: Christi WelchMR#: [id number] : 1965Acct:[id number] Age/Sex: 59 / FADM Date: 01/31/25 Loc: HO.MAMMO Attending Dr: Irene Ricardo MD Ordering Physician: Irene Gallardo MDResults: 2Benign Date of Service: 01/31/25Follow Up: 1 Year From Orig inal Mammogram Procedure(s): MM tomosynthesis screening BI Accession Number(s): [id number] cc: Irene Gallardo MD Reason For Exam: [...] 02/01/25 1255 DD/ 1515 TD/TT: 01/31/25 1535 Software Design Manager: us Irene Ricardo MD IMG BI PROCEDURES Yayo jarett Result - Final * Hepatitis C Antibody with Reflex to HCV, RNA, Quantitative, Real-Time PCR (02/23/2024 9:10 AM EST) Hepatitis C Antibody Nonreactive Nonreactive [facility] Comment:Antibodies to HCV no t detected; does not exclude early acuteHCV infection. Blood Venous blood specimen / Unknown 02/23/2024 9:10 AM EST 02/23/2024 11:04 AM EST us Irene Ricardo MD LAB BLOOD ORDERABLES Final Result [facility] [address] [place] [address] [phone] * HIV-1/2 Antigen and Antibodies, Fourth Generation, with Reflexes (02/23/2024 9:10 AM EST) HIV AB/AG Nonreactive Nonreactive [facility] Comment:HIV-1 p24 Ag and/or HIV-1/HIV-2 Ab not detected.A test result that is nonreactive does not exclude thepossibility of exposure to or infection with HIV-1 and/orHIV-2. Nonreactive results in this assay for individualswith prior exposure to HIV-1 and/or HIV-2 may be due toantigen and antibody levels that are below the limit ofdetection of this assay.The [email or web address] HIV Ag/Ab Combo assay result andsupplemental assay results should be interpreted inconjunction with the patient's clinical presentation,history and other laboratory results. If the results areinconsistent with clinical evidence, additional testing issuggested to confirm the result. Blood Venous blood specimen / Unknown 02/23/2024 9:10 AM EST 02/23/2024 11:04 AM EST us Irene Ricardo MD LAB BLOOD ORDERABLES Final Result [facility] [address] [place] [address] [phone] from Last 3 Months or Most Recently Relevant to Health Maintenance Insurance HSN PARTIAL [facility] 3 DENTAL - HSN PARTIAL (MEDICAID) Care Teams Direct Service Provider Relationship Specialty Start Date End Date Irene Gallardo MD [address] [place], [place] PCP - General Internal Medicine 12/18/23
--- OUTSIDE RECORDS SUMMARY | 2025-02-02 21:13 | XMS_ITS | Encounter Summary ---
Author Organization [employer] Address [address] [place] [address] 7 [place] [address] Care Team Providers Care Dry Cell And Battery Assembler Name Role Phone Irene Gallardo MD Primary Care Provide r Encounter Details Date Type Department Care Team (Latest Contact Info) Description 06/07/2021 Abstract [facility] CONVERSIONS Dental, Provider, DDS Social History Tobacco [...] Description 03/21/2025 2:00 PM EST Office Visit [facility] OPTOMETRY 267 [place] [address] Danae Zavala, OD 267 [place] [address] 03/29/2025 3:30 PM EST Office Visit [facility] MEDICINE 230 [place] [address] Irene Gallardo MD 230 [place] [address] documented as of this encounter Visit Diagnoses Not on filedocumented in this encounter Care Teams Dry Cell And Battery Assembler Relationship Specialty Start Date End Date Irene Gallardo MD 230 [place] [address] PCP - General Internal Medicine 12/18/23 documented as of this encounter
--- OUTSIDE RECORDS SUMMARY | 2025-02-02 21:13 | XMS_ITS | Encounter Summary ---
Author Organization [employer] Address 75 [facility] 7t [place] [address] Care Team Providers Care Sweet Goods Machine Operator Name Role Phone Irene Gallardo MD Primary Care Provide r Encounter Details Date Type Department Care Team (Late st Contact Info) Description 10/08/2023 Telephone [facility] CHC MED & PEDS [address] [place], [place] [phone] Dima Valentin MD 505 [place] [address] Social History Tobacco Use Types Packs/Day Years [...] Description 03/21/2025 2:00 PM EST Office Visit [facility] OPTOMETRY 267 [place], [place] [phone] Danae Zavala, OD 267 [place] [address] 03/29/2025 3:30 PM EST Office Visit [facility] MEDICINE 230 [place] [address] Irene Gallardo MD 230 [place] [address] documented as of this encounter Visit Diagnoses Not on filedocumented in this encounter Additional Health Concerns Assessment Noted Time PHQ-9 Depression Total Score: 0 03/26/20 22 9:10 AM EST documented as of this encounter Care Teams Sweet Goods Machine Operator Relationship Specialty Start Date End Date Irene Gallardo MD 230 [place] [address] PCP - General Internal Medicine 12/18/23 documented as of this encounter
--- OUTSIDE RECORDS SUMMARY | 2025-02-02 21:13 | XMS_ITS | Encounter Summary ---
Author Organization [employer] Address 75 [facility] 7t [place] [address] Care Team Providers Care Integrated Marketing Manager Name Role Phone Irene Gallardo MD Primary Care Provide r Encounter Details Date Type Department Care Team (Late st Contact Info) Description 02/27/2024 Orders Only [facility] CHC MED & PEDS 505 [place], [place] [phone] Dima Valentin MD 505 [place] [address] Social History Tobacco Use Types Packs/Day Years [...] Description 03/21/2025 2:00 PM EST Office Visit [facility] OPTOMETRY [address] [place] [address] Danae Zavala, OD 267 [place] [address] 03/29/2025 3:30 PM EST Office Visit [facility] MEDICINE 230 [place] [address] Irene Gallardo MD 230 [place] [address] documented as of this encounter Visit Diagnoses Not on filedocumented in this encounter Additional Health Concerns Assessment Noted Time PHQ-9 Depression Total Score: 0 02/16/20 10:37 AM EST documented as of this encounter Care Teams Integrated Marketing Manager Relationship Specialty Start Date End Date Irene Gallardo MD [address] [place] [address] PCP - General Internal Medicine 12/18/23 documented as of this encounter
--- OUTSIDE RECORDS SUMMARY | 2025-02-02 21:13 | XMS_ITS | Encounter Summary ---
Author Organization [employer] Address 75 [facility] 7t [place] [address] Care Team Providers Care Time Piece Repairer Name Role Phone Irene Gallardo MD Primary Care Provide r Encounter Details Date Type Department Care Team (Late Contact Info) Description 04/24/2022 Orders Only [facility] MEDICINE [address] [place] [address] Dima Valentin MD 505 [place] [address] Pain in both hands (Primary Dx) Social [...] Description 03/21/2025 2:00 PM EST Office Visit [facility] OPTOMETRY 267 [place], [place] [phone] Danae Zavala, OD 267 [place] [address] 03/29/2025 3:30 PM EST Office Visit [facility] MEDICINE 230 [place] [address] Irene Gallardo MD 230 [place], [place] [phone] documented as of this encounter Visit Diagnoses Diagnosis Pain in both hands- Primary documented in this encounter Additional Health Concerns Assessment Noted Time PHQ-9 Depression Total Score: 0 03/26/20 22 9:10 AM EST documented as of this encounter Care Teams Time Piece Repairer Relationship Specialty Start Date End Date Irene Gallardo MD [address] [place] [phone] PCP - General Internal Medicine 12/18/23 documented as of this encounter
--- OUTSIDE RECORDS SUMMARY | 2025-02-02 21:13 | XMS_ITS | Encounter Summary ---
Author Organization [employer] Address 75 [facility] 7t [place] [address] Care Team Providers Care Litigation Secretary Name Role Phone Irene Gallardo MD Primary [...] Description 03/21/2025 2:00 PM EST Office Visit [facility] OPTOMETRY 267 [place], [place] [phone] Danae Zavala, OD 267 [place] [address] 03/29/2025 3:30 PM EST Office Visit [facility] MEDICINE 230 [place] [address] Irene Gallardo MD 230 [place] [address] documented as of this encounter Visit Diagnoses Not on filedocumented in this encounter Additional Health Concerns Assessment Noted Time PHQ-9 Depression Total Score: 16 025 11:07 AM EDT documented as of this encounter Care Teams Litigation Secretary Relationship Specialty Start Date End Date Irene Gallardo MD [address] [place] [address] PCP - General Internal Medicine 12/18/23 documented as of this encounter
--- OUTSIDE RECORDS SUMMARY | 2025-02-02 21:13 | XMS_ITS | Encounter Summary ---
Author Organization [employer] Address [address] [place] [address] 7 [place] [address] Care Team Providers Care Program Aide Group Work Name Role Phone Irene Gallardo MD Primary Care Provide r Reason for Referral * Consultation (Routine) - Closed Specialty Diagnoses / Procedures Referred By Contac t Referred To Contact Physical Therapy Diagnoses Localized osteoarthritis of right knee Xochilt Valenzuela MD [address] [place] [phone] Phone: tel: fax: [facility] [address] [place] [address] Phone: tel: fax: Referral ID Status Reason Start Date Expiration Date V isits Requested Visits Authorized [id number] Closed Specialty Services Required 05/17/2024 05/17/2025 1 1 Encounter Details Date Type Department Care Team (Late st Contact Info) Description 05/17/2024 Orders Only [facility] MEDICINE [address] [place] [phone] Xochilt Valenzuela MD [address] [place] [address] [phone] Localized osteoarthritis of right knee (Primary Dx) [...] EST Office Visit [facility] OPTOMETRY 267 [place] [address] Danae Zavala, OD 267 [place] [address] 03/29/2025 3:30 PM EST Office Visit [facility] MEDICINE 230 [place] [address] Irene Gallardo MD 230 [place] [address] Scheduled Referrals Name Type Priority Associated Diagnoses [...] documented as of this encounter Care Teams Program Aide Group Work Relationship Specialty Start Date End Date Irene Gallardo MD 230 [place] [address] PCP - General Internal Medicine 12/18/23 documented as of this encounter
--- OUTSIDE RECORDS SUMMARY | 2025-02-02 21:13 | XMS_ITS | Encounter Summary ---
Author Organization [employer] Address 75 [facility] 7 [place] [address] Care Team Providers Care Rn Transition Name Role Phone Irene Gallardo MD Primary Care Provide r Encounter Details Date Type Department Care Team (Late Contact Info) Description 04/22/2022 Telephone [facility] MEDICINE 230 [place] [address] Dima Valentin MD 505 [place] [address] Social History Tobacco Use Types Packs/Day Years [...] Description 03/21/2025 2:00 PM EST Office Visit [facility] OPTOMETRY [address] [place], [place] [phone] Danae Zavala, OD [address] [place] [address] 03/29/2025 3:30 PM EST Office Visit [facility] MEDICINE 230 [place] [address] Irene Gallardo MD 230 [place], [place] [phone] documented as of this encounter Visit Diagnoses Not on filedocumented in this encounter Additional Health Concerns Assessment Noted Time PHQ-9 Depression Total Score: 0 03/26/20 22 9:10 AM EST documented as of this encounter Care Teams Rn Transition Relationship Specialty Start Date End Date Irene Gallardo MD 230 [place], [place] [phone] PCP - General Internal Medicine 12/18/23 documented as of this encounter
--- OUTSIDE RECORDS SUMMARY | 2025-02-02 21:13 | XMS_ITS | Encounter Summary ---
Author Organization [email or web address] Address [address] [facility] 7 [place] [address] Care Team Providers Care Spice Grinder Name Role Phone Irene Gallardo MD Primary Care Provide r Reason for Visit * Reason Onset Date Comments Chart Prep 01/31/2025 Encounter Details Date Type Department Care Team ([facility] Contact Info) Description 01/31/2025 Telephone [facility] MEDICINE [address] [place] [address] Irene Gallardo MD [address] [place] [address] Chart Prep Social History Tobacco Use Types [...] Description 03/21/2025 2:00 PM EST Office Visit [facility] OPTOMETRY [address] [place] [address] Danae Zavala, OD [address] [place] [address] 03/29/2025 3:30 PM EST Office Visit [facility] MEDICINE [address] [place] [address] Irene Gallardo MD [address] [place] [address] documented as of this encounter Visit Diagnoses Not on filedocumented in this encounter Additional Health Concerns Assessment Noted Time PHQ-9 Depression Total Score: 16 025 11:07 AM EDT documented as of this encounter Care Teams Spice Grinder Relationship Specialty Start Date End Date Irene Gallardo MD [address] [place] [address] PCP - General Internal Medicine 12/18/23 documented as of this encounter
--- OUTSIDE RECORDS SUMMARY | 2025-02-02 21:13 | XMS_ITS | Encounter Summary ---
Author Organization [employer] Address [address] [facility] 7 [place] [address] Care Team Providers Care Promotion Specialist Name Role Phone Irene Gallardo MD Primary Care Provide r Reason for Visit * Reason Onset Date Comments Triage 07/31/2022 Encounter Details Date Type Department Care Team ([facility] st Contact Info) Description 07/31/2022 Telephone [facility] [address] [place] [address] Dima Valentin MD [address] [place] [address] Triage Social History Tobacco Use Types Packs/Day [...] The caller accepted this outcome Patient speaks Uzbek. documented in this encounter Plan of Treatment Upcoming Encounters Date Type Department Care Team (Late st Contact Info) Description 03/21/2025 2:00 PM EST Office Visit [facility] OPTOMETRY [address] [place], [place] [id number] Tarcriss Danae, OD [address] [place] [address] 03/29/2025 3:30 PM EST Office Visit [facility] MEDICINE [address] [place] [address] Irene Gallardo MD [address] [place] [address] documented as of this encounter Visit Diagnoses Not on filedocumented in this encounter Additional Health Concerns Assessment Noted Time PHQ-9 Depression Total Score: 0 03/26/20 22 9:10 AM EST documented as of this encounter Care Teams Promotion Specialist Relationship Specialty Start Date End Date Irene Gallardo MD [address] [place] [id number] PCP - General Internal Medicine 12/18/23 documented as of this encounter
--- OUTSIDE RECORDS SUMMARY | 2025-02-02 21:13 | XMS_ITS | Encounter Summary ---
Author Organization [employer] Address [address] [place] [address] [address] [place] [address] Care Team Providers Care Parts Lister Name Role Phone Irene Gallardo MD Primary Care Provide r Encounter Details Date Type Department Care Team (Latest Contact Info) Description 06/05/2020 Abstract [facility] CONVERSIONS Dental, Provider, DDS Social History [...] Description 03/21/2025 2:00 PM EST Office Visit [facility] OPTOMETRY [address] [place] [address] Danae Zavala, OD [address] [place] [address] 03/29/2025 3:30 PM EST Office Visit [facility] MEDICINE [address] [place] [address] Irene Gallardo MD [address] [place] [address] documented as of this encounter Visit Diagnoses Not on filedocumented in this encounter Care Teams Parts Lister Relationship Specialty Start Date End Date Irene Gallardo MD [address] [place] [address] PCP - General Internal Medicine 12/18/23 documented as of this encounter
--- OUTSIDE RECORDS SUMMARY | 2025-02-02 21:14 | XMS_ITS | Encounter Summary ---
Author Organization [employer] Address [address] [facility] 7 [place] [address] Care Team Providers Care Etched Circuit Processor Name Role Phone Irene Gallardo MD Primary Care Provide r Reason for Visit * Reason Onset Date Comments Nurse Triage 01/31/2025 Encounter Details Date Type Department Care Team ([facility] st Contact Info) Description 01/31/2025 Telephone [facility] MEDICINE [address] [place] [address] Irene Gallardo MD [address] [place] [address] Nurse Triage Social History Tobacco Use Types [...] higher acuity questions Please contact pt at [phone]. (Gabonese Speaker) documented in this encounter Plan of Treatment Upcoming Encounters Date Type Department Care Team (Late st Contact Info) Description 03/21/2025 2:00 PM EST Office Visit [facility] OPTOMETRY [address] [place] [address] Danae Zavala, OD [address] [place] [address] 03/29/2025 3:30 PM EST Office Visit [facility] MEDICINE [address] [place] [address] Irene Gallardo MD [address] [place] [address] documented as of this encounter Visit Diagnoses Not on filedocumented in this encounter Additional Health Concerns Assessment Noted Time PHQ-9 Depression Total Score: 16 025 11:07 AM EDT documented as of this encounter Care Teams Etched Circuit Processor Relationship Specialty Start Date End Date Irene Gallardo MD [address] [place] [address] PCP - General Internal Medicine 12/18/23 documented as of this encounter
== END 2025-02-02 15:01 | disposition home or self-care (01) ==
LOC: HO.HHCX 15:00
PROVIDERS: Visit Provider Internal Medicine
DX: M25.512 Pain in left shoulder (principal)
CPT/HCPCS: 73030